=== PATIENT | male | born 1945 | race Caucasian/White ===

== ENCOUNTER 2023-11-27 06:24 | Observation (INO) ==
--- NOTE | 2023-11-02 10:49 | PAT Medication Instructions ---
Medication Instructions Date of Service November 02, 2023 Home Medications albuterol sulfate 90 mcg/actuation aerosol inhaler 1 inh inhalation QID PRN atorvastatin 40 mg tablet 40 mg PO QPM bisacodyl 5 mg tablet,delayed release (Dulcolax (bisacodyl)) 5 mg PO QPM cholecalciferol (vitamin D3) 25 mcg (1,000 unit) tablet (Vitamin D3) 25 mcg PO QAM fluticasone propionate 50 mcg/actuation nasal spray,suspension 1 spray intranasal BID gabapentin 100 mg capsule 100 mg PO BID levocetirizine 5 mg tablet 5 mg PO QAM levothyroxine 75 mcg tablet 75 mcg PO QAM metoprolol tartrate 50 mg tablet 50 mg PO BID multivitamin 1 tab PO QAM naproxen sodium 220 mg capsule (Aleve) 220 mg PO BID tamsulosin 0.4 mg capsule 0.4 mg PO QPM clopidogrel 75 mg tablet 75 mg PO QAM ezetimibe 10 mg tablet 10 mg PO QPM ferric maltol 30 mg capsule (Accrufer) 30 mg PO QAM pantoprazole 40 mg tablet,delayed release 40 mg PO QAM ASK your surgeon for instructions naproxen sodium 220 mg capsule (Aleve) 220 mg PO BID ASK your prescriber and surgeon clopidogrel 75 mg tablet 75 mg PO QAM(in order for spinal or epidural anesthesia, Plavix needs to be stopped 7 days before surgery. Please check if okay with doctor that prescribes this to you) DO NOT take the morning of surgery cholecalciferol (vitamin D3) 25 mcg (1,000 unit) tablet (Vitamin D3) 25 mcg PO QAM levocetirizine 5 mg tablet 5 mg PO QAM multivitamin 1 tab PO QAM ferric maltol 30 mg capsule (Accrufer) 30 mg PO QAM Take morning of surgery With a small sip of water, OTHERWISE NOTHING TO EAT OR DRINK AFTER MIDNIGHT: albuterol sulfate 90 mcg/actuation aerosol inhaler 1 inh inhalation QID PRN(use if needed; please bring with you to hospital day of surgery if possible) fluticasone propionate 50 mcg/actuation nasal spray,suspension 1 spray intranasal BID gabapentin 100 mg capsule 100 mg PO BID levothyroxine 75 mcg tablet 75 mcg PO QAM metoprolol tartrate 50 mg tablet 50 mg PO BID pantoprazole 40 mg tablet,delayed release 40 mg PO QAM Take evening before surgery albuterol sulfate 90 mcg/actuation aerosol inhaler 1 inh inhalation QID PRN(if needed) atorvastatin 40 mg tablet 40 mg PO QPM bisacodyl 5 mg tablet,delayed release (Dulcolax (bisacodyl)) 5 mg PO QPM fluticasone propionate 50 mcg/actuation nasal spray,suspension 1 spray intranasal BID gabapentin 100 mg capsule 100 mg PO BID metoprolol tartrate 50 mg tablet 50 mg PO BID tamsulosin 0.4 mg capsule 0.4 mg PO QPM ezetimibe 10 mg tablet 10 mg PO QPM Other Notes If you have any questions please call us at [phone] or [phone] or [phone] or [phone]
--- NOTE | 2023-11-05 09:37 | Anesthesiology Consultation ---
Date of Service November 05, 2023 Assessment & Plan (1) Encounter for pre-operative examination: - will request 07/2023 cardiology office note, Torin Pope PA-C with [facility] Juan Antonio cardiology. - Outpatient joint assessment: Patient is currently scheduled for inpatient pathway. If re-evaluated and patient/surgeon requests outpatient pathway, patient is not recommended candidate for outpatient joint program from anesthesia standpoint. Chart Review Chart Review: Pending: Refer to Additional Notes / Consult section and Patient seen in Pre Admission Testing Teaching & Discussion Pre-Anesthesia Teaching/Discussion Notes: Instructed NPO after midnight before surgery, except medications with 15 cc of water. Medication instructions provided according to the PAT guidelines. History Surgery Operation Date: 11/27/23 09:00 Proposed Procedures p Right Total Knee Arthroplasty - Reno Hooks DO Height/Weight Height: 5 ft 4 in Weight: 86.183 kg Allergies Allergy/AdvReac Type Severity Reaction Status Date / Time clarithromycin Allergy Mild Rash Verified 10/29/23 10:18 lisinopril AdvReac Mild Cough Verified 10/29/23 10:18 prednisone AdvReac Mild Gastrointestinal Verified 10/29/23 10:16 Upset Medications Home Medications Medication Instructions Recorded Confirmed Last Taken albuterol sulfate 90 mcg/actuation 1 inh inhalation QID PRN SHORT OF 10/07/21 10/29/23 10/09/21 07:00 aerosol inhaler BREATH atorvastatin 40 mg tablet 40 mg PO QPM 10/07/21 10/29/23 10/08/21 bisacodyl 5 mg tablet,delayed 5 mg PO QPM 10/07/21 10/29/23 10/08/21 release (Dulcolax (bisacodyl)) cholecalciferol (vitamin D3) 25 25 mcg PO QAM 10/07/21 10/29/23 10/08/21 mcg (1,000 unit) tablet (Vitamin D3) fluticasone propionate 50 1 spray intranasal BID 10/07/21 10/29/23 10/08/21 mcg/actuation nasal spray,suspension gabapentin 100 mg capsule 100 mg PO BID 10/07/21 10/29/23 10/08/21 levocetirizine 5 mg tablet 5 mg PO QAM 10/07/21 10/29/23 10/08/21 levothyroxine 75 mcg tablet 75 mcg PO QAM 10/07/21 10/29/23 10/08/21 metoprolol tartrate 50 mg tablet 50 mg PO BID 10/07/21 10/29/23 10/08/21 multivitamin 1 tab PO QAM 10/07/21 10/29/23 10/08/21 naproxen sodium 220 mg capsule 220 mg PO BID 10/07/21 10/29/23 10/08/21 (Aleve) tamsulosin 0.4 mg capsule 0.4 mg PO QPM 10/07/21 10/29/23 10/08/21 clopidogrel 75 mg tablet 75 mg PO QAM 10/29/23 10/29/23 Unknown ezetimibe 10 mg tablet 10 mg PO QPM 10/29/23 10/29/23 Unknown ferric maltol 30 mg capsule 30 mg PO QAM 10/29/23 10/29/23 Unknown (Accrufer) pantoprazole 40 mg tablet,delayed 40 mg PO QAM 10/29/23 10/29/23 Unknown release Past Medical History Medical History (Updated 11/05/23 @ 09:35 by Sameera Hall PA-C) Asthma controlled, stable per pt; last rescue inhaler use several weeks ago BPH (benign prostatic hyperplasia) Contact dermatitis Coronary artery disease CABG x 5 (11/2021) Stent x1 (07/2022) GERD (gastroesophageal reflux disease) controlled, stable per pt History of blood transfusion during CABG Hyperlipidemia Hypertension controlled, stable per pt Hypothyroidism Migraine 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 Exercise / Class Metabolic Activity III < 4 Walking/Shop/Light housework (denies chest discomfort or shortness of breath with usual activities) Past Family History Family History Mother Family history of diabetes mellitus Daughter Family history of diabetes mellitus Other No family history of adverse response to anesthesia Past Surgical History Surgical History History of cardiac cath Stent x1 (07/2022) History of colonoscopy History of coronary artery bypass graft 11/2021, [facility] History of esophagogastroduodenoscopy (EGD) History of tonsillectomy Hx of inguinal hernia repair [place] teeth removed Past Anesthesia History No Hx of Anesthesia Complications and No Family Hx of Anesthesia Complications History of PONV No Hx of PONV and No Hx of Motion Sickness Social History Smoking Status: Never smoker Do You Dip or Chew Tobacco: No Hx Alcohol Use: Yes alcohol intake frequency: holidays/special occasions only Hx Substance Use: No substance use type: does not use Review of Systems Patient reports development of rash 1 week ago, located on hands and forearms after clearing weeds-following with PCP with dx of contact dermatitis. Patient denies chest pain, shortness of breath, dyspnea on exertion, fever, chills, cough, wheezing, or palpitations. Physical Exam Vital Signs Vitals BP 124/80 P 66 TEMP 97.5 SP02 95% on RA RESP 18 Physical Patient resting comfortably in chair in no acute distress, alert and oriented, responding appropriately throughout visit Full cervical extension range of motion without pain TMD 3.5 finger breadths Mallampati Score 2 Dentition: intact, denies chipped or loose teeth, caps/crowns, implants or bridges Lungs: normal respiratory effort. Good air movement, clear throughout to auscultation, no adventitious breath sounds Cardiac: regular rate and rhythm, no murmurs noted Carotid arteries: negative bruit bilat Skin: papulo-vesicular erythematous rash on hands bilat; no bullae or active drainage-patient reports has been evaluated by a healthcare provider and was dx with contact dermatitis. He was instructed to call PAT if rash does not resolve by surgery date. Lab Results Anesthesia Preop Results Results Anesthesia Widget: WBC 10.81 K/ul (4.8-10.8) H 11/05/23 Hgb 15.6 g/dl (14.0-18.0) 11/05/23 Hct 46.7 % (42.0-52.0) 11/05/23 Plt 315 K/uL (130-400) 11/05/23 Na 139 mmol/L (136-145) 11/05/23 K 4.2 mmol/L (3.5-5.1) 11/05/23 Cl 107 mmol/L (98-107) 11/05/23 CO2 22 mmol/L (21-32) 11/05/23 BUN 23 mg/dl (6-23) 11/05/23 Creat 0.81 mg/dl (0.6-1.4) 11/05/23 Glucose Level 96 mg/dl (70-99(Fasting)) 11/05/23 PT 11.1 Seconds (9.0-12.0) 11/05/23 PTT 24 Seconds (21-31) 11/05/23 INR 1.0 (0.9-1.1) 11/05/23 Blood Type A Positive 11/05/23 Antibody Screen NEGATIVE 11/05/23 Testing Electrocardiogram Date: 11/05/23 NSR, rate 63 bpm Chest X-Ray Date: 11/05/23 Cardiomegaly with no active disease in the chest.
--- NOTE | 2023-11-26 07:15 | History & Physical Report ---
Date of Service November 26, 2023 Assessment & Plan (1) Osteoarthritis of right knee: We will proceed with a right total knee arthroplasty. Postoperatively he will be kept on his aspirin and Plavix for DVT prophylaxis. He will be kept overnight in the hospital for postop medical management. He plans to have the hospital set up home health before discharge. History of Present Illness Chief Complaint: Osteoarthritis of the right knee. Primary Care Provider: Jessee Macias Iglesia Dick is a pleasant 78-year-old male who has been dealing with chronic bilateral knee pain. 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 X-rays have shown advanced arthritis. He has been given cortisone injections and viscosupplementation. Unfortunately, he is still struggling with the knees. After finding since conservative treatment, he has elected to proceed with a right total knee arthroplasty. Allergies Allergy/AdvReac Type Severity Reaction Status Date / Time clarithromycin Allergy Mild Rash Verified 10/29/23 10:18 lisinopril AdvReac Mild Cough Verified 10/29/23 10:18 prednisone AdvReac Mild Gastrointestinal Verified 10/29/23 10:16 Upset Home Medications Medication Instructions Recorded Confirmed Type albuterol sulfate 90 mcg/actuation 1 inh inhalation QID PRN SHORT OF 10/07/21 10/29/23 History aerosol inhaler BREATH atorvastatin 40 mg tablet 40 mg PO QPM 10/07/21 10/29/23 History bisacodyl 5 mg tablet,delayed 5 mg PO QPM 10/07/21 10/29/23 History release (Dulcolax (bisacodyl)) cholecalciferol (vitamin D3) 25 25 mcg PO QAM 10/07/21 10/29/23 History mcg (1,000 unit) tablet (Vitamin D3) fluticasone propionate 50 1 spray intranasal BID 10/07/21 10/29/23 History mcg/actuation nasal spray,suspension gabapentin 100 mg capsule 100 mg PO BID 10/07/21 10/29/23 History levocetirizine 5 mg tablet 5 mg PO QAM 10/07/21 10/29/23 History levothyroxine 75 mcg tablet 75 mcg PO QAM 10/07/21 10/29/23 History metoprolol tartrate 50 mg tablet 50 mg PO BID 10/07/21 10/29/23 History multivitamin 1 tab PO QAM 10/07/21 10/29/23 History naproxen sodium 220 mg capsule 220 mg PO BID 10/07/21 10/29/23 History (Aleve) tamsulosin 0.4 mg capsule 0.4 mg PO QPM 10/07/21 10/29/23 History clopidogrel 75 mg tablet 75 mg PO QAM 10/29/23 10/29/23 History ezetimibe 10 mg tablet 10 mg PO QPM 10/29/23 10/29/23 History ferric maltol 30 mg capsule 30 mg PO QAM 10/29/23 10/29/23 History (Accrufer) pantoprazole 40 mg tablet,delayed 40 mg PO QAM 10/29/23 10/29/23 History release Past Med/Surg History Medical History Contact dermatitis Sleep apnea on CPAP-compliant History of blood transfusion during CABG Coronary artery disease CABG x 5 (11/2021) Stent x1 (07/2022) 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 BPH (benign prostatic hyperplasia) GERD (gastroesophageal reflux disease) controlled, stable per pt Hypothyroidism Migraine Hypertension controlled, stable per pt Hyperlipidemia Seasonal allergies Asthma controlled, stable per pt; last rescue inhaler use several weeks ago Surgical History Hx of inguinal hernia repair History of cardiac cath Stent x1 (07/2022) History of coronary artery bypass graft 11/2021, [facility] History of esophagogastroduodenoscopy (EGD) History of colonoscopy [place] teeth removed History of tonsillectomy Family History Mother Family history of diabetes mellitus Daughter Family history of diabetes mellitus Other No family history of adverse response to anesthesia Social History Smoking Status: Never smoker Second Hand Exposure: Yes (childhood); Do You Dip or Chew Tobacco: No; Tobacco Cessation Education Requested by Patient: No Hx Alcohol Use: Yes Hx Substance Use: No Preferred Language: Faroese Windows And Doors Installer Required: No Beliefs That Will Affect Care: None Current Living Situation: Alone Current Living Situation Comment: WITH DAUGHTER Other Information That Helps Us Care for You: No Feels Safe at Home: Yes Safety Concerns: Feels Safe At This Time Assistive Devices: Glasses Review of Systems All systems reviewed & are unremarkable except as noted in HPI & below. Physical Exam On physical exam of the right knee, he does have a varus deformity. He has tenderness palpation over the distal medial femoral condyle and over the medial joint line.. Constitutional WD/WN, vitals as above Eyes PERRL, conjunctivae normal, anicteric sclerae ENMT external ear and nose normal, oropharynx normal Neck trachea midline, no thyromegaly Respiratory normal respiratory effort Cardiovascular RRR, no murmur, no edema Gastrointestinal (Abdomen) normal bowel sounds, soft, nontender, no hepatosplenomegaly Psychiatric A+Ox3, euthymic affect Results & Data Results & Data Laboratory Results . Diagnostic Findings X-rays of the right knee show advanced osteoarthritis with joint space narrowing, osteophyte formation, and [id number] articulation. PG Care Time/CCT Total # of Minutes Spent Total Time Spent with Patient: Total time spent is greater than 50% in coordination of care (as documented) at patient's floor/unit and/or counseling patient: Coding Level of Care Code None Diagnoses Osteoarthritis of right knee M17.11
[~2023-11-27 06:24] MED LIST: BUPIVACAINE 0.5 % 5 MG/1 ML PF 10ML VIAL ONE; ROPIVACAINE 0.5% 5 MG/ML 30 ML VIAL ONE
--- NOTE | 2023-11-27 06:36 | History & Physical Bridge Note ---
Date of Service November 27, 2023 History & Physical Bridge Note I have examined the patient, reviewed the History & Physical and in the interval since the performance of the History & Physical I have noted the following changes of clinical significance: no changes noted
[2023-11-27] MEDS ORDERED: MIDAZOLAM HCL 1 MG/ML 2ML VIAL ONE ×2 (06:41→07:53)
[2023-11-27] MEDS ORDERED: KETAMINE HCL 10MG/ML SYR ONE (06:41)
[2023-11-27] MEDS: LR 60ML/HR IV SCH (07:10)
[2023-11-27] MEDS: ACETAMINOPHEN 500 MG TAB PO SCH ×2 (07:13→13:19)
[2023-11-27] MEDS: FAMOTIDINE 20 MG TAB PO SCH (07:13)
[2023-11-27] MEDS: GABAPENTIN 300 MG CAP PO SCH (07:13)
[2023-11-27] MEDS: LR 500ML BOLUS, THEN 15ML/HR IV SCH (07:16)
[2023-11-27] MEDS: dexAMETHasone**PF** 10 MG/ML VIAL IV SCH (07:17)
[2023-11-27] MEDS ORDERED: ePHEDrine sulfate 50 MG/ML AMP IV PRN (07:36)
[2023-11-27] MEDS ORDERED: ATROPINE SULFATE 0.1 MG/ML 10ML SYR IV PRN (07:36)
[2023-11-27] MEDS ORDERED: fentaNYL citrate PF 100 MCG/2 ML VIAL IV PRN (07:36)
[2023-11-27] MEDS: TRANEXAMIC ACID 1,000 MG **IV Pre-op IV SCH (07:37)
[2023-11-27] MEDS: ceFAZolin 2000MG 2,000 MG/15 ML SYR IV SCH (08:04)
[2023-11-27] MEDS ORDERED: GLYCOPYRROLATE 0.2 MG/ML VIAL ONE (08:13)
[2023-11-27] MEDS ORDERED: LIDOCAINE 2% 2 ML VIAL/AMP(20MG/ML) INFIL ONE (08:13)
[2023-11-27] MEDS ORDERED: PROPOFOL IV EMULSION 10 MG/ML 20 ML VIAL IV ONE ×2 (08:13→09:06)
[2023-11-27] MEDS ORDERED: ONDANSETRON INJ 2 MG/ML 2 ML VIAL ONE (08:13)
[2023-11-27] MEDS: ROPIV 0.5% 246mg, Ketorolac 30mg, EPINEPHrine 0.5mg in NSS INFIL SCH (08:38)
[2023-11-27] MEDS: ORTHO JOINT ANESTHETIC ONE (08:38)
[2023-11-27] MEDS: TRANEXAMIC ACID 1,000 MG **IV Intra-op IV SCH (09:00)
[2023-11-27] MEDS ORDERED: PHENYLEPHRINE 100MCG/ML 10ML SYR IV ONE (09:00)
--- NOTE | 2023-11-27 09:10 | Operative Report ---
PG Post Operative Report Pre & Post Diagnosis Operation Date: 11/27/23 08:00 Pre-Op Diagnosis: Degenerative Joint Disease, Right Knee Post-Op Diagnosis: Degenerative Joint Disease, Right Knee I identified the patient and participated in the time-out.: Yes Procedure Operation Date: 11/27/23 08:00 Actual Procedures p Right Total Knee Arthroplasty, Cemented(Right) - Reno Hooks DO Surgeon Reno Hooks DO Landscape Gardener Aquiles Hart PA-C Estimated Blood Loss 30 Findings Consistent with Post-Op Diagnosis Specimens Right femoral tibial bone Description of Procedure Implants used: I used a Maxim Persona total knee arthroplasty system with a size 8 standard PS femur, F tibia, 34 oval patella, and a size 10 CPS polyethylene bearing. All components were cemented in place with Biomet cement. Kapil arrived [facility] for the above procedure. He was seen in the preoperative holding area and the operative extremity was identified and signed. He was given a preoperative antibiotic, TXA, a spinal anesthetic and an adductor nerve block. He was taken back to the operating room and laid on the table in supine position. He was given basic sedation. The operative knee was then prepped and draped in sterile fashion. A timeout was done, and the patient and the operative extremity was properly identified. A midline incision was made directly over the patella. Dissection was taken down to the extensor mechanism. A medial parapatellar arthrotomy was used. The medial retinaculum was released and the fat pad was mostly excised. The knee was flexed and the ACL, PCL, and meniscus were removed. A drill was sent down the center of the femoral canal followed by an intramedullary ga. Off that ga a distal femoral cutting block was placed. 9 mm was resected off the distal femur at 5 of valgus. A posterior referencing AP sizing guide was then placed on the distal femur. The femur measured to be a size 8. 2 drill holes were placed in 3 of external rotation. A 4-in-1 cutting block was then impacted into place. Anterior, posterior, and chamfer cuts were then made. The proximal tibia was then exposed. An external tibial alignment guide was placed. A tibial cut guide was then anchored in place and the proximal tibia was then resected. The posterior aspect of the knee was then opened up and any additional meniscus fragments and osteophytes were removed. The tibia measured to be a size F. The tibial plate was then placed in the appropriate rotation and the tibia was drilled and punched. Trial components were then placed. I used a size 10 CPS polyethylene insert. The knee was brought through a full range of motion and felt to be stable. The peg holes for the femoral component were then drilled. The patella was then everted and 9 mm was resected off the posterior aspect of the patella. The patella measured to be a size 34 oval. 3 peg holes were then drilled. A trial patella was placed. The knee was once again brought through a full range of motion and felt to be stable. Trial components were then removed. The surrounding soft tissues were injected with 100 cc of an orthopedic pain control cocktail. All components were then cemented into place with Biomet cement. The final polyethylene insert was then snapped into place. Once cement was dry the tourniquet was deflated. Hemostasis was obtained. A dilute betadyne lavage was then done for 3 minutes. The joint was then irrigated with normal saline solution. The medial parapatellar arthrotomy was then closed with #1 Vicryl suture. The skin was closed with 2-0 Vicryl, 3-0V lock suture, and sidney. A soft compressive dressing was placed. He was then transferred to a hospital bed and taken to the postanesthesia care unit in stable condition. He tolerated the procedure well. Aquiles Hart PA-C, was present for the entire procedure. He was critical for patient positioning, prepping, draping, retraction exposure, wound closure and application of sterile dressing. I attest to the content of the Intraoperative Record and any orders documented therein. Any exceptions are noted below.
--- NOTE | 2023-11-27 10:09 | XRay Report ---
XR knee RT 1 or 2V routine CLINICAL HISTORY: Postoperative evaluation. COMPARISON: Right knee radiographs September 08, 2023. FINDINGS: Alignment of the total right knee arthroplasty is anatomic. There is no periprosthetic fra cture or unexpected radiopaque foreign body. There are skin sidney. IMPRESSION: Expected findings following total right knee arthroplasty. ACT 112: Negative or not required by law. Electronically signed by: Lavell Wood M.D. 11/27/2023 10:08 AM
[2023-11-27] MEDS ORDERED: ONDANSETRON INJ 2 MG/ML 2 ML VIAL IV PRN (11:00)
[2023-11-27] MEDS ORDERED: NALOXONE HCL 0.4 MG/1 ML VIAL/CARP IV PRN (11:00)
[2023-11-27] MEDS ORDERED: bisacodyL 10 MG SUPP PR PRN (11:00)
[2023-11-27] MEDS ORDERED: METOCLOPRAMIDE HCL INJ 5 MG/ML 2 ML VIAL IV PRN (11:00)
[2023-11-27] MEDS ORDERED: traMADol HCL 50 MG TABLET PO PRN (11:00)
[2023-11-27] MEDS ORDERED: HYDROmorphone INJ 0.5 MG/0.5 ML SYR IV PRN (11:00)
[2023-11-27] MEDS ORDERED: MAGNESIUM HYDROXIDE SUSP 30 ML UDC PO PRN (11:00)
[2023-11-27] MEDS: SODIUM CHLORIDE 0.9% 1,000 ML IV SCH (11:16)
[2023-11-27] MEDS: KETOROLAC TROMETHAMINE 15 MG/ML VIAL IV SCH (12:01)
--- OUTSIDE RECORDS SUMMARY | 2023-11-27 15:47 | External Medical Summary | Continuity of Care Document ---
Author Name Unknown Organization [facility] Address [address] [place] [address] Phone [phone] Care Team Providers Care Body Shop Technician Name Role Phone [facility] Care Team Information Receive r [phone] [facility] - [facility] Care Team Information Lean Leader [phone] Problems Active Problems Provider Date Mixed hyperlipidemia Jessee Parekh PA-C Ons et: Essential hypertension Jessee Parekh PA-C O nset: Hypothyroidism Jessee Parekh PA-C Onset: 0 Gastroesophageal reflux disease Jessee strickland PA-C Onset: Degenerative joint disease i nvolving multiple joints Jessee Parekh PA-C Onset: Low back pain Jessee Parekh PA-C Onset: 0 Chronic maxillary sinusitis Yolette Wells Onset: 11/17/2017 Trigeminal neuralgia Jessee Parekh PA-C Ons et: 04/05/2018 Obstructive sleep apnea syndrome Jessee wood PA-C Onset: 05/20/2018 Insomnia Jessee Parekh PA-C Onset: 0 05/20/2018 Asthma without status asthmaticus Jessee villasenor PA-C Onset: 05/19/2019 Localized, primary osteoarthritis Jessee villasenor PA-C Onset: 07/28/2019 Coronary artery bypass grafts x 5 Onset: 11/12/2021 Note: Document: 11/12/21 - O perative Report Social History Type Date Description Comments Sex Unknown Tobacco Use Reviewed: 07/15/23 Never Smoked Cigarette s Tobacco Use Reviewed: 07/15/23 Never Smoked Cigars Smoking Status Reviewed: 11/19/23 Never Smoked Cigars Tobacco Use Reviewed: 07/15/23 Never Smoked A Pipe Smokeless Tobacco 07/15/2023 Never Used Smokeless To bacco ETOH Use Denies alcohol use Recreational Drug Use Denies Drug Use Allergies and adverse reactions Active Allergies Criticality Reaction | Severity Comments Date steroid Unable to assess criticality Nausea and Vomiting 05/21/2017 Lisinopril Unable to assess criticality Cough 11/12/2018 Amlodipine Unable to assess criticality Angioedema 12/30/2018 Medications Active Medications SIG Qnty Indications Order ing Provider Date Gtqcpgekttr519ds Capsules Four capsules prior to dental procedure 10britney Guadarrama MD 10/02/2023 Xdfsarjbr64ct Tablets 1 by mouth every day 90tabs Fauzia Guadarrama MD 09/23/2023 Jrbyuel95xn Tablets 1 by mouth every day 90tabs Fauzia Guadarrama MD 02/09/2023 Aqaqohsr99qx Capsules one capsule daily 180caps Fauzia Guadarrama MD 12/10/2022 Ferrous Bkninjd999(65Fe) mg Tablets take 1 tablet by mouth daily 60tabs Fauzia Guadarrama MD 11/25/2022 Clopidogrel Heufqewug77iw Tablets Take 1 tablet by mouth once daily 30tabs Fauzia Guadarrama MD 08/05/2022 Nitroglycerin0.4mg Tablets Sub one by mouth sl every 5 minutes x3 as needed chest pain 30tabs Fauzia Guadarrama MD 07/21/[address] 1 by mouth every day 90caps K21.9 Fauzia Guadarrama MD 06/03/2022 Dgicofraal8vv Tablets 1 by mouth four times a day prior to meals as needed 120tabs Fauzia Guadarrama MD 06/03/2022 Saline Nasal Spray0.65% Solution use 2- 3 times a day 88ml J32.0 Fauzia Guadarrama MD 03/25/2022 Zyrtec Dkiehnt22oe Tablets 1 by mouth every day 30tabs J32.0 Fauzia Guadarrama MD 03/25/2022 Fluticasone Creejwltpn30hfd/Act Suspension 2 sprays each nostril every day 48gm Fauzia Guadarrama MD 02/14/2022 Medical Alert SystemDevice use at all times 1units I25.731 Fauzia Guadarrama MD 12/27/2021 Gpgaklbehj61hl Tablets 1 by mouth every day as needed for fluid 30tabs Fauzia Guadarrama MD 11/22/2021 Atorvastatin Qdhtxsx63ud Tablets 1 by mouth every day E78.2 Fauzia Guadarrama MD 10/24/2021 Levocetirizine Jggqthittnfolxe4wv Tablets take one tablet by mouth at bedtime 90tabs Fauzia Guadarrama MD 10/24/2021 Wubajobxt94vrl Tablets once daily 90tabs E03.9 Aurelio Llanes MD 11/09/2020 Metoprolol Feewvprq05xe Tablets 1 by mouth twice a day 180tabs Aurelio Llanes MD 11/09/2020 Albuterol Sulfate DCG832(90Base) mcg/Act Aerosol 2 puffs by mouth every 4-6 hours as needed wheezing 8.500gm J45.998 Usman Burciaga JR, MD 05/19/2019 Multivitamin AdultTablets 1 by mouth every day Usman Burciaga JR, MD 05/05/2019 Kmkvhcweke418dr Capsules 1 by mouth twice daily 270caps G50.0 Fauzia Guadarrama MD 04/05/2018 Cpap Autotitration Machine With Mask AndDevice wear nightly increase to 14cm h20 pressure - decreased humidifier please 1units G47.33 Fauzia Guadarrama MD 08/18/2017 Cpap Machine, Mask, Tubing, And FilterDevice patient to use full face mask 1units G47.33 Fauzia Guadarrama MD 08/18/2017 Flomax0.4mg Capsules 1 by mouth every day 90caps Fauzia Guadarrama MD Montelukast Csntrm27ce Tablets 1 by mouth every day Unknown Vitamin [id number] Tablets ER 1 by mouth every day Usman Burciaga JR, MD History Medications Repatha Hvmychxws499zs/ml Solution Auto-Inject one every other week 6ml Fauzia Guadarrama MD 09/03/2023 - 10/09/2023 Medications Administered in Office Medication SIG Qnty Indications Ordering Provider Date Injection Dexamethasone Sodium Phosphate, 1 MGInjection Jessee Parekh PA-C 05/08 Injection Kenalog 10 MG NDC [id number] Yolette Wells A-C 04/27/2023 Injection Dexamethasone Sodium Phosphate, 1 MGInjection Jessee Parekh PA-C 04/08 Injection Vitamin B-12 Up To 1000 mcgInjection Jessee Parekh PA-C 11/25/2022 Injection Dexamethasone Sodium Phosphate, 1 MGInjection Jessee Parekh PA-C 07/09 Injection Dexamethasone Sodium Phosphate, 1 MGInjection Fauzia Guadarrama MD Injection Dexamethasone Sodium Phosphate, 1 MGInjection Jessee Parekh PA-C 02/06 Injection Dexamethasone Sodium Phosphate, 1 MGInjection Jessee Parekh PA-C 04/2021 Injection Dexamethasone Sodium Phosphate, 1 MGInjection Jessee Parekh PA-C 10/2020 Injection Kenalog 10 MG NDC 30894210285Kdbbkojvn Jessee Parekh, P A-C 01/18/2021 Injection Kenalog 10 MG NDC 52202049669Ssrmzilcs Jessee Parekh, P A-C 01/26/2020 Injection Kenalog 10 MG NDC 88683915113Wvbldwcvb Jessee Parekh, P A-C 12/15/2019 Injection Kenalog 10 MG NDC 64687149554Qeqdgpnsj Jessee Parekh, P A-C 11/08/2019 Injection Dexamethasone Sodium Phosphate, 1 MGInjection Jessee Parekh, ABDIRAHMANC 11/2019 Injection Kenalog 10 MG NDC 82556156223Vpnzxohxm DARWIN Sainz 10/21/2019 Injection Dexamethasone Sodium Phosphate, 1 MGInjection DARWIN Schrader 10/21/2019 Injection Kenalog 10 MG NDC 98228449531Pklrqkglm Jessee Gilberto Harpera, P A-C 06/23/2019 Injection Kenalog 10 MG NDC 21882957295Kfypsttcr Jessee Gilberto Harpera, P A-C 12/30/2018 Injection Kenalog 10 MG NDC 45146857881Bazthquns Kelly CharlesDARWIN Nelson 10/04/2018 Injection Kenalog 10 MG NDC 22798545557Heevbvfcf Jessee Gilberto Harpera, P A-C 06/24/2018 Injection Kenalog 10 MG NDC 86122756887Zbrbdejpy Jessee Gilberto Lazrosaa, P A-C 11/17/2017 Injection Dexamethasone Sodium Phosphate, 1 MGInjection Jessee Gilberto Harpera, PA-C 11/05 Injection Kenalog 10 MG NDC 20817196015Lolntdgfx Jessee Gilberto Harpera, P A-C 05/21/2017 Injection Dexamethasone Sodium Phosphate, 1 MGInjection Jesseeava Harpera, PA-C 05/08 Injection Dexamethasone 1 MGInjection Jesseeava Harpera, PA-C 05/08 Immunizations CPT Code Status Date Vaccine Lot # [id number] Given 06/24/2023 Sarscov2 Vaccin e 50 mcg/0.5 ML For Im Use 12 Yrs And Older U-FLU Given 06/12/2023 Influenza,Unspecified 62072 Given 06/18/2022 Pfizer Sars-Cov -2 (Covid-19) Vx, BiValent Booster, 12+ 78660 Given 01/21/2022 Moderna Covid-1 9 Vaccine 50mcg Booster-EMR Doc Only [id number] 24146 Given 07/06/2021 Moderna Sars-Co v-2 (Cov-19) vacc,100 mcg/ 0.5 mL 12Y+EMR Doc Only U-FLU Given 06/24/2021 Influenza,Unspecified 63734 Given 11/05/2020 Moderna Sars-Co v-2 (Cov-19) vacc,100 mcg/ 0.5 mL 12Y+EMR Doc Only 31717 Given 10/05/2020 Moderna Sars-Co v-2 (Cov-19) vacc,100 mcg/ 0.5 mL 12Y+EMR Doc Only U-FLU Given 06/15/2020 Influenza,Unspecified 60698 Given 06/15/2020 Influenza Vacci ne-Administered at another facility U-FLU Given 06/06/2019 Influenza,Unspecified 59129 Given 06/06/2019 Influenza Vacci ne-Administered at another facility U-FLU Given 06/28/2018 Influenza,Unspecified 10042 Given 12/29/2017 Pneumococcal Conjugate-Pr evnar 13 [id number] 66014 Given 12/29/2017 Pneumococcal Conjugate-Pr evnar 13 42160 Given 07/19/2017 Influenza Vacci ne-Administered at another facility 12822 Given 04/25/2016 Tdap (Tetanus, diphtheria & acel. pertussis) Adacel or Boostrix 04885 Given 10/08/2011 Zostavax Vaccine 37369 Given 10/08/2011 Pneumococcal Vaccine/Pneu movax 23 U-FLU Given 06/20/2011 Influenza,Unspecified U-TD Given 08/04/2005 Td(Adult),Unspecified 39313 Given Unknown Influenza Virus Vaccine, Quadrivalent (Cciiv4), Derived From Cell 12547 Refused 12/30/2018 Influenza Virus Vaccine, Quadrivalent (Cciiv4), Derived From Cell [id number] Refused 12/01/2018 Shingrix Vital Signs Date Vital Result Comment 11/19/2023 8:21am BP Systolic 116 mmHg BP Diastolic 66 mmHg Body Temperature 97.3 F Heart Rate 71 /min Respiratory Rate 14 /min Weight 201.00 lb Weight 91.174 kg Height 63 inches 5'3" BMI (Body Mass Index) 35.6 kg/m2 O2 % BldC Oximetry 94 % [place] Body Weight 124 lb 08/20/2023 10:43am BP Systolic 116 mmHg BP Diastolic 78 mmHg Body Temperature 97.4 F Heart Rate 58 /min Respiratory Rate 15 /min Weight 204.00 lb Weight 92.534 kg Height 63 inches 5'3" BMI (Body Mass Index) 36.1 kg/m2 O2 % BldC Oximetry 96 % [place] Body Weight 124 lb Results Test Acquired Date Facility Test Result H/L Range N ote CBC W/Diff 08/10/2023 [facility] [address] [place] [address] [phone] WBC 4.8 10^3/M3 3.1-9.2 RBC 4.97 10^6/M3 4.00-5.80 HGB 16.4 GR/DL 12.5-17.5 HCT 49.2 % 37.5-52.5 MCV 99.0 CUMICR High 82.6-95.8 MCH 32.9 PICOGR 27.9-32.9 MCHC 33.2 % 32.6-35.4 RDW 13.5 % 11.4-14.6 PLT 278 10^3/M3 140-350 MPV 8.3 CUMICR 7.0-10.6 %Neut 61.2 % 40.0-75.0 %Lymph 22.5 % 17.0-45.0 %Pike 13.4 % High 1.0-11.0 %Eos 2.0 % 0.0-6.0 %Baso 0.9 % 0.0-2.0 #Neut 2.9 10^3/M3 1.5-8.0 #Lymph 1.1 10^3/M3 0.8-3.2 #Pike 0.6 10^3/M3 0.0-0.8 #Eos 0.1 10^3/m3 0.0-0.4 #Baso 0.0 10^3/m3 0.0-0.2 Comp. Met 08/10/2023 [facility] [address] [place] [address] [phone] Glucose 98 mg/dL 70-110 BUN 17 mg/dL 6-25 Creatinine 0.8 mg/dL 0.7-1.3 Sodium 140 mEq/L 135-145 Potassium 4.1 mEq/L 3.5-5.0 Chloride 105 mEq/L 95-107 Co-2 24 mEq/L 24-31 Alk Phos 57 IU/L 43-122 Alt(SGPT) 29 IU/L 10-40 Ast(Sgot) 27 IU/L 3-42 T.Bilirubin 1.0 mg/dL 0.1-1.3 Calcium 9.6 mg/dL 8.5-10.6 Tot.Protein 6.7 g/dL 5.8-8.0 Albumin 4.6 g/dL 3.0-5.2 Globulin 2.1 g/dL 2.0-3.4 GFR 100 ML/MIN/1.73SQM >60 Lipid 08/10/2023 [facility] [address] [place] [address] [phone] Cholesterol 175 mg/dL 0-200 1 Triglyceride 228 mg/dL High 0-150 2 HDLD 42 mg/dL See Comment 3 Measured LDL 99 mg/dL 0-130 4 Calc VLDL 45.6 mg/dL See Comment 5 Chol/HDL 4.2 RATIO See Comment 6 Non-HDL 133 mg/dL See Comment 7 Laboratory test finding 08/10/2023 [facility] [address] [place] [address] [phone] TSH 5.56 uIU/mL 0.50-6.00 Hba1c 08/10/2023 [facility] [address] [place] [address] [phone] A1c 6.00 % 4.70-6.50 8 Iron Panel([employer]) 08/10/2023 [facility] [address] [place] [address] [phone] Iron 113 g /dL 45-140 % Saturation 31 % 30-35 Tibc 08/10/2023 [facility] [address] [place] [address] [phone] Tibc 365 g /dL 260-400 Transferrin 261 mg/dL 200-400 Laboratory test finding 08/10/2023 [facility] [address] [place] [address] [phone] Psa2 2.0 ng/mL 0.0-4.0 VB12 300 pg/mL 230-1050 Urinalysis,Cult If Indicated 08/10/2023 [facility] [address] [place] [address] [phone] RFLX Culture NO Urinalysis 08/10/2023 [facility] [address] [place] [address] [phone] Color COLORLESS Appearance CLEAR Clear Spec.Grav. 1.005 1.005-1.025 Leukocytes NEGATIVE Negative Nitrite NEGATIVE Negative PH 6.5 6.0-7.5 Protein NEGATIVE Negative Urine Glucose NEGATIVE Negative Ketone NEGATIVE Negative Urobilinogen NORMAL E.U./DL Normal Bilirubin NEGATIVE Negative Blood NEGATIVE Negative WBC-U NONE SEEN /HPF 0-5/HPF RBC-U NONE SEEN /HPF 0-5/HPF Bacteria NONE SEEN None Seen Squamous NONE SEEN /HPF 0-5/HPF 1 CHOLESTEROL Less than 200mg/dl Low risk 201-239 mg/dl Borderline risk Equal to or greater 240mg/dl High risk 2 TRIGLYCERIDES Less than 150mg/dl Normal 150-199mg/dl Borderline 200-499mg/dl High Greater than 500mg/dl Very High 3 HDL <40mg/dl Elevated Risk 41-59mg/dl Risk >=60mg/dl Least Risk 4 LDL <100mg/dl Optimal 100-129mg/dl Near Optimal 130-159mg/dl Borderline High 160-189mg/dl High >=190 Very High 5 VLDL Less than 30mg/dl Normal 6 CHOL/HDL <4.0 Optimal 4.0-5.0 Borderline >6.0 High Risk 7 NON-HDL 30mg/dl higher than LDL Target 8 MEAN GLUCOSE IN mg/d L/A1c% POOR CONTROL FAIR CONTROL GOOD CONTROL EXCELLENT CONTROL 360-14 210-9 180-8 120-6 330-13 150-7 90-5 300-12 270-11 240-10 Procedures Date Code Description Status 11/19/2023 3078F PVRP Diastolic BP <80 mmHg C ompleted 11/19/2023 3074F PVRP Systolic BP <130 mmHg C ompleted 11/19/2023 1101F PT SCR Future Fall Risk, No Fall Or 1 W/Out Injury Completed 08/20/2023 3078F PVRP Diastolic BP <80 mmHg C ompleted 08/20/2023 3074F PVRP Systolic BP <130 mmHg C ompleted 08/10/2023 99220 Venipuncture Routine Complet ed 07/15/2023 3079F PVRP Diastolic BP 80-89 MMHG Completed 07/15/2023 3075F PVRP Systolic BP 130 To 139 MMHG Completed 10/09/2021 [id number] Colonoscopy Completed Medical Devices Description No Information Available Encounters Type Date Location Provider Dx Diagnosis Office Visit 11/19/2023 8:30a Mario Parekh PA-C Z00.01 Encounter for general adult medical exam w abnormal findings I10 Essential (primary) hypertension E78.2 Mixed hyperlipidemia I25.731 Athscl nonaut biolog ical CABG w ang pctrs w documented spasm F33.1 Major depressive dis order, recurrent, moderate K21.9 Gastro-esophageal re flux disease without esophagitis M17.11 Unilateral primary o steoarthritis, right knee Office Visit 08/20/2023 11:00a ABDIRAHMAN DensonC I10 Essential (primary) hypertension E78.2 Mixed hyperlipidemia F33.1 Major depressive dis order, recurrent, moderate K21.9 Gastro-esophageal re flux disease without esophagitis I25.731 Athscl nonaut biolog ical CABG w ang pctrs w documented spasm Office Visit 07/15/2023 9:45a Mario currie PA-C I10 Essential (primary) hypertension I25.731 Athscl nonaut biolog ical CABG w ang pctrs w documented spasm F33.1 Major depressive dis order, recurrent, moderate K21.9 Gastro-esophageal re flux disease without esophagitis Assessments Date Code Description Provider 11/19/2023 Z00.01 Encounter for ge neral adult medical examination with abnormal findings ABDIRAHMAN WellsC 11/19/2023 I10 Essential (primary) hyperten ABDIRAHMAN TinocoC 11/19/2023 E78.2 Mixed hyperlipidemia ABDIRAHMAN WellsC 11/19/2023 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 ABDIRAHMAN WellsC 11/19/2023 F33.1 Major depressive disorder, recurrent, moderate ABDIRAHMAN WellsC 11/19/2023 K21.9 Gastro-esophagea l reflux disease without esophagitis ABDIRAHMAN WellsC 11/19/2023 M17.11 Unilateral prima ry osteoarthritis, right knee ABDIRAHMAN WellsC 10/07/2023 I10 Essential (primary) hyperten ABDIRAHMAN TinocoC 10/07/2023 E78.2 Mixed hyperlipidemia ABDIRAHMAN WellsC 10/07/2023 F33.1 Major depressive disorder, recurrent, moderate ABDIRAHMAN WellsC 08/20/2023 I10 Essential (primary) hyperten jaden Jessee Parekh PA-C 08/20/2023 E78.2 Mixed hyperlipidemia Jessee Parekh PA-C 08/20/2023 F33.1 Major depressive disorder, recurrent, moderate Jessee Parekh PA-C 08/20/2023 K21.9 Gastro-esophagea l reflux disease without esophagitis Jessee Parekh PA-C 08/20/2023 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 Jessee Parekh PA-C 08/10/2023 E03.9 Hypothyroidism, unspecified Fauzia Guadarrama MD 08/10/2023 E03.9 Hypothyroidism, unspecified Lab - [place] 08/10/2023 R73.01 Impaired fasting glucose Brissa Guadarrama MD 08/10/2023 R73.01 Impaired fasting glucose Lab - [place] 08/10/2023 E78.2 Mixed hyperlipidemia Fauzia Guadarrama MD 08/10/2023 E78.2 Mixed hyperlipidemia Lab - [place] 08/10/2023 D64.9 Anemia, unspecified Fauzia Guadarrama MD 08/10/2023 D64.9 Anemia, unspecified Lab - [place] 08/10/2023 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 Fauzia Guadarrama MD 08/10/2023 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 Lab - [facility] 08/10/2023 N40.0 Benign prostatic hyperplasia without lower urinary tract symptoms Fauzia Guadarrama MD 08/10/2023 N40.0 Benign prostatic hyperplasia without lower urinary tract symptoms Lab - [place] 08/10/2023 I10 Essential (primary) roshan Guadarrama MD 08/10/2023 I10 Essential (primary) hyperten jaden Lab - [place] 08/06/2023 I10 Essential (primary) hyperten jaden Jessee Parekh PA-C 08/06/2023 E78.2 Mixed hyperlipidemia Jessee Parekh PA-C 08/06/2023 F33.1 Major depressive disorder, recurrent, moderate Jessee Parekh PA-C 07/15/2023 I10 Essential (primary) hyperten jaden Jessee Parekh PA-C 07/15/2023 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 Jessee Parekh PA-C 07/15/2023 F33.1 Major depressive disorder, recurrent, moderate Jessee Parekh PA-C 07/15/2023 K21.9 Gastro-esophagea l reflux disease without esophagitis Jessee Parekh PA-C 07/07/2023 E78.2 Mixed hyperlipidemia Jessee Parekh PA-C 07/07/2023 K21.9 Gastro-esophagea l reflux disease without esophagitis Jessee Parekh PA-C Plan of Treatment Future Appointment(s):* 01/21/2024 9:30 am - Jessee Parekh PA-C at [facility] 11/19/2023 - Jessee Parekh PA-C* Z00.01 Encounter for general adult medical examination with abnormal findings* Comments:* Receives all vaccinations through the [facility] Up-to-date with screening recommendations Continue medications as prescribed continue to hold anticoagulants until completion of right total knee arthroplasty * I10 Essential (primary) hypertension* Comments:* Continue current medication.. Blood pressure stable Continue to monitor at home daily
BP stable * Recommendations:* Low-salt diet. Exercise. Continue medication as directed. * E78.2 Mixed hyperlipidemia* Comments:* Continue current medication. Recently had lab work through the [facility] and clearance for total knee surgery * Follow up:* Follow up 2 months * Recommendations:* Low-fat, low-cholesterol diet. Exercise. 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 * K21.9 Gastro-esophageal reflux disease without esophagitis* Comments:* Continue current medication. Avoid eating within 2 hours of bedtime Patient verbalizes understanding of care plan / instructions. * M17.11 Unilateral primary osteoarthritis, right knee* Comments:* Scheduled for right total knee arthroplasty Patient verbalizes understanding of care plan / instructions. Functional Status Description No Information Available Mental Status Description No Information Available Referrals Description No Information Available
--- OUTSIDE RECORDS SUMMARY | 2023-11-27 15:47 | External Medical Summary | Continuity of Care Document ---
Author Name Unknown Organization [place] Address [address] [place] [address] Phone [phone] Care Team Providers Care [employer] Name Role Phone [facility] Care Team Information Receive r [phone] [facility] - [facility] Care Team Information Assistant To The President [phone] Problems Active Problems Provider Date Mixed hyperlipidemia Jessee Parekh PA-C Ons et: Essential hypertension Jessee Paerkh PA-C O nset: Hypothyroidism Jessee Parekh PA-C [...] SIG Qnty Indications Order ing Provider Date Yjxzacuatbf735wu Capsules Four capsules prior to dental procedure 10britney Guadarrama MD 10/02/2023 Rzutozhmp65ty Tablets 1 by mouth every day 90tabs Fauzia Guadarrama MD 09/23/2023 Zlzynpc24gp Tablets 1 by mouth every day 90tabs Fauzia Guadarrama MD 02/09/2023 Hqagpxxd94qx Capsules one capsule daily 180caps Fauzia Guadarrama MD 12/10/2022 Ferrous Tedbyps609(65Fe) mg Tablets take 1 tablet by mouth daily 60tabs Fauzia Guadarrama MD 11/25/2022 Clopidogrel Pdesbnipg72hx Tablets Take 1 tablet by mouth once daily 30tabs Fauzia Guadarrama MD 08/05/2022 Nitroglycerin0.4mg Tablets Sub one by mouth sl every 5 minutes x3 as needed chest pain 30tabs Fauzia Guadarrama MD 07/21/[address] 1 by mouth every day 90caps K21.9 Fauzia Guadarrama MD 06/03/2022 Clgjpocqav4xi Tablets 1 by mouth four times a day prior to meals as needed 120tabs Fauzia Guadarrama MD 06/03/2022 Saline Nasal Spray0.65% Solution use 2- 3 times a day 88ml J32.0 Fauzia Guadarrama MD 03/25/2022 Zyrtec Qfcexbo55pr Tablets 1 by mouth every day 30tabs J32.0 Fauzia Guadarrama MD 03/25/2022 Fluticasone Ktgkddwfyk27fae/Act Suspension 2 sprays each nostril every day 48gm Fauzia Guadarrama MD 02/14/2022 Medical Alert SystemDevice use at all times 1units I25.731 Fauzia Guadarrama MD 12/27/2021 Mjunvbhxib62ib Tablets 1 by mouth every day as needed for fluid 30tabs Fauzia Guadarrama MD 11/22/2021 Atorvastatin Dhfuwid03yc Tablets 1 by mouth every day E78.2 Fauzia Guadarrama MD 10/24/2021 Levocetirizine Ojvqumjmqscaiox8wt Tablets take one tablet by mouth at bedtime 90tabs Fauzia Guadarrama MD 10/24/2021 Bnizmmxnf25jtu Tablets once daily 90tabs E03.9 Aurelio Llanes MD 11/09/2020 Metoprolol Qnbgvwfs25ue Tablets 1 by mouth twice a day 180tabs Aurelio Llanes MD 11/09/2020 Albuterol Sulfate KPJ672(90Base) mcg/Act Aerosol 2 puffs by mouth every 4-6 hours as needed wheezing 8.500gm J45.998 Usman Burciaga JR, MD 05/19/2019 Multivitamin AdultTablets 1 by mouth every day Usman Burciaga JR, MD 05/05/2019 Esspqdyagk010ev Capsules 1 by mouth twice daily 270caps [...] every day 90caps Fauzia Guadarrama MD Montelukast Gezwhb22cp Tablets 1 by mouth every day Unknown Vitamin F994816pzu Tablets ER 1 by mouth every day Usman Burciaga JR, MD History Medications Repatha Poljeuajy452xq/ml Solution Auto-Inject one every other week 6ml Fauzia Guadarrama MD 09/03/2023 - 10/09/2023 Medications Administered in Office Medication SIG Qnty Indications Ordering Provider Date Injection Dexamethasone Sodium Phosphate, 1 MGInjection Jessee Parekh PA-C 05/08 Injection Kenalog 10 MG NDC [id number] Yolette Wells A-C 04/27/2023 Injection Dexamethasone Sodium [...] PA-C 10/2020 Injection Kenalog 10 MG NDC [id number] Jessee Parekh, P A-C 01/18/2021 Injection Kenalog 10 MG NDC 19935724945Eaokzjodn Jessee Parekh, P A-C 01/26/2020 Injection Kenalog 10 MG NDC [id number] Jessee Parekh, P A-C 12/15/2019 Injection Kenalog 10 MG NDC 52169638074Qeivwyqzw Jessee Parekh, P A-C 11/08/2019 Injection Dexamethasone Sodium Phosphate, 1 MGInjection Jessee Parekh, ABDIRAHMANC 11/2019 Injection Kenalog 10 MG NDC 26410102845Jahnybjtv DARWIN Sainz 10/21/2019 Injection Dexamethasone Sodium Phosphate, 1 MGInjection DARWIN Schrader 10/21/2019 Injection Kenalog 10 MG NDC [id number] Jessee Gilberto Harpera, P A-C 06/23/2019 Injection Kenalog 10 MG NDC 30161806136Txxphdgdz Jessee Gilberto Harpera, P A-C 12/30/2018 Injection Kenalog 10 MG NDC 73719459560Vrriwenbc Kelly CharlesDARWIN Nelson 10/04/2018 Injection Kenalog 10 MG NDC 94307264132Ydcdmzxxt Jessee Gilberto Harpera, P A-C 06/24/2018 Injection Kenalog 10 MG NDC 96209028261Qawyhuvhu Jessee Gilberto Lazrosaa, P A-C 11/17/2017 Injection Dexamethasone Sodium Phosphate, 1 MGInjection Jessee Gilberto Harpera, PA-C 11/05 Injection Kenalog 10 MG NDC 12843720425Wfoviwkka Jessee Gilberto Harpera, P A-C 05/21/2017 Injection Dexamethasone Sodium Phosphate, 1 MGInjection Jesseeava Harpera, PA-C 05/08 Injection Dexamethasone 1 MGInjection Jesseeava Harpera, PA-C 05/08 Immunizations CPT Code Status Date Vaccine Lot # [id number] Given 06/24/2023 Sarscov2 Vaccin e 50 mcg/0.5 ML For Im Use 12 Yrs And Older U-FLU Given 06/12/2023 Influenza,Unspecified 13042 Given 06/18/2022 Pfizer Sars-Cov -2 (Covid-19) Vx, BiValent Booster, 12+ 85761 Given 01/21/2022 Moderna Covid-1 9 Vaccine 50mcg Booster-EMR Doc Only [id number] 42840 Given 07/06/2021 Moderna Sars-Co v-2 (Cov-19) vacc,100 mcg/ 0.5 mL 12Y+EMR Doc Only U-FLU Given 06/24/2021 Influenza,Unspecified 84963 Given 11/05/2020 Moderna Sars-Co v-2 (Cov-19) vacc,100 mcg/ 0.5 mL 12Y+EMR Doc Only 73698 Given 10/05/2020 Moderna Sars-Co v-2 (Cov-19) vacc,100 mcg/ 0.5 mL 12Y+EMR Doc Only U-FLU Given 06/15/2020 Influenza,Unspecified 17592 Given 06/15/2020 Influenza Vacci ne-Administered at another facility U-FLU Given 06/06/2019 Influenza,Unspecified 09575 Given 06/06/2019 Influenza Vacci ne-Administered at another facility U-FLU Given 06/28/2018 Influenza,Unspecified 80307 Given 12/29/2017 Pneumococcal Conjugate-Pr evnar 13 [id number] 68335 Given 12/29/2017 Pneumococcal Conjugate-Pr evnar 13 71758 Given 07/19/2017 Influenza Vacci ne-Administered at another facility 69604 Given 04/25/2016 Tdap (Tetanus, diphtheria & acel. pertussis) Adacel or Boostrix 65440 Given 10/08/2011 Zostavax Vaccine 94223 Given 10/08/2011 Pneumococcal Vaccine/Pneu movax 23 U-FLU Given 06/20/2011 Influenza,Unspecified U-TD Given 08/04/2005 Td(Adult),Unspecified 07716 Given Unknown Influenza Virus Vaccine, Quadrivalent (Cciiv4), Derived From Cell 85730 Refused 12/30/2018 Influenza Virus Vaccine, Quadrivalent (Cciiv4), Derived From Cell [id number] Refused 12/01/2018 Shingrix Vital Signs Date Vital Result Comment 11/19/2023 8:21am BP Systolic 116 mmHg BP Diastolic 66 mmHg Body Temperature 97.3 F Heart Rate 71 /min Respiratory Rate 14 /min Weight 201.00 lb Weight 91.174 kg Height 63 inches 5'3" BMI (Body Mass Index) 35.6 kg/m2 O2 % BldC Oximetry 94 % Ruston Body Weight 124 lb 08/20/2023 10:43am BP Systolic 116 mmHg BP Diastolic 78 mmHg Body Temperature 97.4 F Heart Rate 58 /min Respiratory Rate 15 /min Weight 204.00 lb Weight 92.534 kg Height 63 inches 5'3" BMI (Body Mass Index) 36.1 kg/m2 O2 % BldC Oximetry 96 % [place]on Body Weight 124 lb Results Test Acquired Date Facility Test Result H/L Range N ote CBC W/Diff 08/10/2023 [facility] [address] [place] [address] [phone] WBC 4.8 10^3/M3 3.1-9.2 RBC 4.97 10^6/M3 4.00-5.80 HGB 16.4 GR/DL 12.5-17.5 HCT 49.2 % 37.5-52.5 MCV 99.0 CUMICR High 82.6-95.8 MCH 32.9 PICOGR 27.9-32.9 MCHC 33.2 % 32.6-35.4 RDW 13.5 % 11.4-14.6 PLT 278 10^3/M3 140-350 MPV 8.3 CUMICR 7.0-10.6 %Neut 61.2 % 40.0-75.0 %Lymph 22.5 % 17.0-45.0 %Caswell 13.4 % High 1.0-11.0 %Eos 2.0 % 0.0-6.0 %Baso 0.9 % 0.0-2.0 #Neut 2.9 10^3/M3 1.5-8.0 #Lymph 1.1 10^3/M3 0.8-3.2 #Caswell 0.6 10^3/M3 0.0-0.8 #Eos 0.1 10^3/m3 0.0-0.4 #Baso 0.0 10^3/m3 0.0-0.2 Comp. Met 08/10/2023 [facility] [address] [place] [address] [phone] Glucose 98 mg/dL 70-110 BUN 17 mg/dL [...] 2.0-3.4 GFR 100 ML/MIN/1.73SQM >60 Lipid 08/10/2023 [facility] [address] [place] [address] [phone] Cholesterol 175 mg/dL 0-200 1 Triglyceride 228 mg/dL High 0-150 2 HDLD 42 mg/dL See Comment 3 Measured LDL 99 mg/dL 0-130 4 Calc VLDL 45.6 mg/dL See Comment 5 Chol/HDL 4.2 RATIO See Comment 6 Non-HDL 133 mg/dL See Comment 7 Laboratory test finding 08/10/2023 [facility] [address] [place] [address] [phone] TSH 5.56 uIU/mL 0.50-6.00 Hba1c 08/10/2023 [facility] [address] [place] [address] [phone] A1c 6.00 % 4.70-6.50 8 Iron Panel([employer]) 08/10/2023 [facility] [address] [place] [address] [phone] Iron 113 g /dL 45-140 % Saturation 31 % 30-35 Tibc 08/10/2023 [facility] [address] [place] [address] [phone] Tibc 365 g /dL 260-400 Transferrin 261 mg/dL 200-400 Laboratory test finding 08/10/2023 [facility] [address] [place] [address] [phone] Psa2 2.0 ng/mL 0.0-4.0 VB12 300 pg/mL 230-1050 Urinalysis,Cult If Indicated 08/10/2023 [facility] [address] [place] [address] [phone] RFLX Culture NO Urinalysis 08/10/2023 [facility] [address] [place] [address] [phone] Color COLORLESS Appearance CLEAR Clear Spec.Grav. 1.005 [...] Systolic BP <130 mmHg C ompleted 08/10/2023 78155 Venipuncture Routine Complet ed 07/15/2023 3079F PVRP Diastolic BP 80-89 MMHG Completed 07/15/2023 3075F PVRP Systolic BP 130 To 139 MMHG Completed 05/22/2023 J1100 Injection Dexamethasone Sodi um Phosphate, 1 MG Completed 05/22/2023 85792 Inj Subcutaneous Or Intramus cular Completed 05/22/2023 3079F PVRP Diastolic BP 80-89 MMHG Completed 05/22/2023 3077F PVRP Systolic BP >/= 140 MMH G Completed 10/09/2021 [id number] Colonoscopy Completed Medical Devices Description No Information Available Encounters Type Date Location Provider Dx Diagnosis Office Visit 11/19/2023 8:30a [facility] Jessee D. Lazorka, PA-C Z00.01 Encounter for general adult medical exam w abnormal findings I10 Essential (primary) hypertension E78.2 Mixed hyperlipidemia I25.731 Athscl nonaut biolog ical CABG w ang pctrs w documented spasm F33.1 Major depressive dis order, recurrent, moderate K21.9 Gastro-esophageal re flux disease without esophagitis M17.11 Unilateral primary o steoarthritis, right knee Office Visit 08/20/2023 11:00a Mario Parekh PA-C I10 Essential (primary) hypertension E78.2 Mixed hyperlipidemia [...] K21.9 Gastro-esophageal re flux disease without esophagitis Office Visit 05/22/2023 9:45a Mario currie PA-C I10 Essential (primary) hypertension E78.2 Mixed hyperlipidemia F33.1 Major depressive dis order, recurrent, moderate E03.9 Hypothyroidism, unsp ecified J32.0 Chronic maxillary si nusitis Assessments Date Code Description Provider 11/19/2023 Z00.01 Encounter for ge neral adult medical examination with abnormal findings Jessee Parekh PA-C 11/19/2023 I10 Essential (primary) hyperten jaden Jessee Parekh PA-C 11/19/2023 E78.2 Mixed hyperlipidemia Jessee Parekh PA-C 11/19/2023 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 Jessee Parekh PA-C 11/19/2023 F33.1 Major depressive disorder, recurrent, moderate Jessee Parekh PA-C 11/19/2023 K21.9 Gastro-esophagea l reflux disease without esophagitis Jesseeava Parekh, LOGAN-C 11/19/2023 M17.11 Unilateral prima ry osteoarthritis, right knee Jessee LOGAN Hudson-C 10/07/2023 I10 Essential (primary) hyperten jaden Jessee Macias Iglesia, LOGAN-C 10/07/2023 E78.2 Mixed hyperlipidemia Jessee ClaudeChiquita Parekh, LOGAN-C 10/07/2023 F33.1 Major depressive disorder, recurrent, moderate Jessee ArceChiquita Parekh, PA-C 08/20/2023 I10 Essential (primary) hyperten jaden Macias Iglesia, LOGAN-C 08/20/2023 E78.2 Mixed hyperlipidemia Jessee DChiquita Parekh, LOGAN-C 08/20/2023 F33.1 Major depressive disorder, recurrent, moderate Jessee LOGAN Hudson-C 08/20/2023 K21.9 Gastro-esophagea l reflux disease without esophagitis JesseeLOGAN Avina-C 08/20/2023 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 ABDIRAHMAN WellsC 08/10/2023 E03.9 Hypothyroidism, unspecified Fauzia Guadarrama MD 08/10/2023 E03.9 Hypothyroidism, unspecified Lab - [facility] 08/10/2023 R73.01 Impaired fasting glucose Birssa Guadarrama MD 08/10/2023 R73.01 Impaired fasting glucose Lab - [facility] 08/10/2023 E78.2 Mixed hyperlipidemia Fauzia Guadarrama MD [...] angina pectoris with documented spasm Lab - [facility] 08/10/2023 N40.0 Benign prostatic hyperplasia without lower urinary tract symptoms Fauzia Guadarrama MD 08/10/2023 N40.0 Benign prostatic hyperplasia without lower urinary tract symptoms Lab - [facility] 08/10/2023 I10 Essential (primary) hyperten jaden Fauzia Guadarrama MD 08/10/2023 I10 Essential (primary) hyperten jaden [facility] - [facility] 08/06/2023 I10 Essential (primary) hyperten jaden Jessee Parekh PA-C 08/06/2023 E78.2 Mixed hyperlipidemia Jessee Parekh, PA-C 08/06/2023 F33.1 Major depressive disorder, recurrent, moderate Jessee Parekh, PA-C 07/15/2023 I10 Essential (primary) hyperten jaden Jessee Parekh, PA-C 07/15/2023 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 Jessee Parekh, PA-C 07/15/2023 F33.1 Major depressive disorder, recurrent, moderate Jessee Parekh, PA-C 07/15/2023 K21.9 Gastro-esophagea l reflux disease without esophagitis Jessee Parekh, PA-C 07/07/2023 E78.2 Mixed hyperlipidemia Jessee Parekh PA-C 07/07/2023 K21.9 Gastro-esophagea l reflux disease without esophagitis Jessee Parekh, PA-C 05/22/2023 I10 Essential (primary) hyperten jaden Parekh, PA-C 05/22/2023 E78.2 Mixed hyperlipidemia Jessee Parekh, PA-C 05/22/2023 F33.1 Major depressive disorder, recurrent, moderate Jessee Parekh PA-C 05/22/2023 E03.9 Hypothyroidism, unspecified Jessee Parekh, PA-C 05/22/2023 J32.0 Chronic maxillary sinusitis Jessee Parekh PA-C Plan of Treatment Future Appointment(s):* 01/21/2024 9:30 am - Jessee Parekh PA-C at [place] 11/19/2023 - Jessee Parekh PA-C* Z00.01 Encounter for general adult medical examination with abnormal findings* Comments:* [facility] Up[facility]date with screening recommendations Continue medications as prescribed continue to hold anticoagulants until completion of right total knee arthroplasty * I10 Essential (primary) hypertension* Comments:* Continue current medication.. Blood pressure stable Continue to monitor at home daily
BP stable * Recommendations:* Low-salt diet. Exercise. Continue medication as directed. * E78.2 Mixed hyperlipidemia* Comments:* Continue current medication. Recently had lab work through the [facility] and clearance for total knee surgery * [...]
[2023-11-27] MEDS: ceFAZolin 1000MG 1,000 MG/7.5 ML SYR IV SCH (17:08)
[2023-11-27] MEDS: ASPIRIN 81 MG ECTAB PO SCH (19:54)
[2023-11-27] MEDS: SENNA 8.6 MG TAB PO SCH (19:54)
[2023-11-27] MEDS: GABAPENTIN 100 MG CAP PO SCH (19:55)
[2023-11-27] MEDS: METOPROLOL TARTRATE 50 MG TAB PO SCH (19:55)
[2023-11-27] MEDS: bisacodyL 5 MG TABEC PO SCH (19:56)
[2023-11-27] MEDS: ATORVASTATIN 40 MG TAB PO SCH (19:56)
[2023-11-27] MEDS: DOCUSATE SODIUM 100 MG CAP PO SCH (19:56)
[2023-11-27] MEDS: EZETIMIBE 10 MG TAB PO SCH (19:56)
[2023-11-27] MEDS: TAMSULOSIN HCL 0.4 MG CAP PO SCH (19:56)
[2023-11-28] MEDS: LEVOTHYROXINE SODIUM 75 MCG TABLET PO SCH (05:14)
[2023-11-28] MEDS: dexAMETHasone 4 MG TAB PO SCH (07:30)
--- NOTE | 2023-11-28 07:58 | Orthopedic Progress Note ---
Date of Service November 28, 2023 Assessment & Plan (1) Status post right knee replacement: Overall he is doing very well. Is not having much pain in the right knee. He will be seen by physical therapy today for ambulation and range of motion exercises. He is on aspirin and Plavix for DVT prophylaxis. He can be discharged home later today. He will follow-up orthopedics in 2 weeks. Valery Dick was seen and examined at bedside this morning. Overall is doing very well. Is not having much pain in the right knee. He has been up and ambulating at bedside. Has no complaints.. Review of Systems All systems reviewed & are unremarkable except as noted in HPI & below. Physical Exam On physical examination of right knee, the dressing is clean and dry. His leg is out full extension. He has active dorsiflexion plantarflexion of his right ankle.. Results & Data Results & Data Laboratory Results . Diagnostic Findings Postoperative x-rays of the right knee show the prosthesis to be in anatomic alignment without any evidence of fracture complication, or loosening.. PG Care Time/CCT Total # of Minutes Spent Total Time Spent with Patient: Total time spent is greater than 50% in coordination of care (as documented) at patient's floor/unit and/or counseling patient: Coding Level of Care Code 87164 Post Operative Follow-Up Diagnoses Status post right knee replacement Z96.651
--- NOTE | 2023-11-28 07:59 | Discharge Summary ---
Date of Service November 28, 2023 Admission HPI (Per Admitting) Kapil is a pleasant 78-year-old male who has been dealing with chronic bilateral knee pain. He has laid tile for years. He has been [facility] the [facility]. X-rays have shown advanced arthritis. He has been given cortisone injections and viscosupplementation. Unfortunately, he is still struggling with the knees. After finding since conservative treatment, he has elected to proceed with a right total knee arthroplasty. Admission Exam (Per Admitting) On physical exam of the right knee, he does have a varus deformity. He has tenderness palpation over the distal medial femoral condyle and over the medial joint line.. Principal Diagnosis Same as "Discharge Diagnosis" noted below under Discharge Instructions. Discharge Exam On physical examination of right knee, the dressing is clean and dry. His leg is out full extension. He has active dorsiflexion plantarflexion of his right ankle.. Discharge Data Procedures Performed Operation Date: 11/27/23 08:00 Actual Procedures p Right Total Knee Arthroplasty, Cemented(Right) - Reno Hooks DO Ordered Studies 11/27/23 05:00 US - OR guided needle placemen Routine Hospital Course (1) Status post right knee replacement: On November 27, 2023 Kapil arrived at [facility] and underwent a right knee replacement without complication. He had a spinal anesthetic. Postoperatively he was started on aspirin and Plavix for DVT prophylaxis and transferred to the general orthopedic floors. His hospital course was uneventful. On postop day #1, his vital signs were stable and his pain was well-controlled. He was able to participate well with physical therapy doing ambulation and range of motion exercises. He was then discharged home. He will follow-up orthopedics in 2 weeks. PG Care Time/CCT Total # of Minutes Spent Total Time Spent with Patient: Total time spent is greater than 50% in coordination of care (as documented) at patient's floor/unit and/or counseling patient: Discharge Plan Discharge Items Patient Disposition: Home - Self-Care Reason For Visit: POST OP Discharge Diagnosis: Right knee replacement Activity: Per Instructions section Non-emergency contact: Surgeon Call non-emergency contact if: your wound has increased redness and your wound has increased drainage Follow-up/Referrals: Jessee Parekh PA-C [Primary Care Provider] - Diet: Regular Addtl Attending Provider Instructions: Activity and Therapy Recommendations: * If you are using [facility] then therapy will be provided at your home until they feel you have accomplished all of your goals. * If you are using [facility] then Physical Therapy will be provided until they feel you are ready to start Outpatient Physical Therapy. * If you are not using home therapy then Outpatient Physical Therapy should start about 3-5 days from your day of surgery. Therapy will last about 6-10 weeks * It is important not to put a pillow under your knee when you are relaxing or sleeping. It is just as important to make sure you are getting your knee perfectly straight as it is to regain your knee bend. * You were shown a series of exercises in the hospital. Do these exercises three times each day including the exercises you were shown in physical therapy. * Get up and walk several times each day. For the first four weeks, try not to stand or walk for more than one hour at a time. If you do stand or walk for more than one hour, you will not hurt anything, but your leg will likely swell. * As you feel comfortable, you may change from the walker or crutches to a cane and then to independent walking. Medications: * Narcotic You will likely be sent home from the hospital with a prescription for the narcotic pain medication that worked best throughout your stay. * Cefadroxil -take the antibiotic twice a day for 10 days to help prevent infection. * Aspirin Most patients will be required to take Aspirin 81mg twice a day for 6 weeks after surgery. This is obtained gdpi-zlf-mfykawq and a prescription is not necessary. * Other medications may be prescribed for specific circumstances. If you have any questions, please call the office at . * Resume previous home medications unless otherwise instructed TEDs/Elastic Stockings: The white elastic stockings help limit swelling and prevent blood clots from forming in your legs.~ The more you wear them, the more they work. Wear them for six weeks. Dressing Care: The dressing can be changed after physical therapy on postop day #1. Daily dry dressing changes for a few days, especially if the incision is still draining some. If the incision is not draining then you may leave the sidney open to air. If there is a little bit of drainage or if the sidney are getting stuck on your clothing then cover the incision with a dry dressing. The sidney will be removed at your 2 week follow-up appointment. Showering: You may shower 5 days from the day of surgery as long as the incision is no longer draining. You may shower with the sidney exposed. Let soapy water run over the sidney and pat them dry. Do not scrub or soak the incision. Things To Watch For: * Drainage from the incision site that occurs more than one week after your surgery. * Increased redness at the incision site. * Fever above 102 degrees Fahrenheit. * Unusual chest pain or shortness of breath. * Call [facility] at with any of the above problems Follow-Up Visit: Follow-up with Dr. Hooks's PA (Reno Watson) 2-3 weeks after your day of surgery. He will remove your sidney and answer any questions. If you have any additional questions or concerns, Dr Hooks is usually in the office at the same time and will be available An appointment was probably scheduled when you signed-up for surgery in the office. If you have any questions call Office Instructions: More detailed instructions as well as Frequently Asked Questions were provided in a folder by our office when you signed-up for surgery. Please review these instructions when you get home. If you have any further questions or concerns, please feel free to call the office at [phone] Pending Studies at Discharge: No Stand-Alone Forms: [facility], Smoking Cessation Medications and DC Order Prescriptions: New oxycodone 5 mg Tablet 5 mg PO Q4H PRN (Reason: pain) Qty: 30 0RF cefadroxil 500 mg capsule 500 mg PO BID 10 Days Qty: 20 0RF aspirin 81 mg Tablet,Delayed Release (Dr/Ec) 81 mg PO BID 42 Days Qty: 84 0RF Continued multivitamin Tablet 1 tab PO QAM atorvastatin 40 mg Tablet 40 mg PO QPM levothyroxine 75 mcg Tablet 75 mcg PO QAM tamsulosin 0.4 mg Capsule 0.4 mg PO QPM metoprolol tartrate 50 mg Tablet 50 mg PO BID bisacodyl [Dulcolax (bisacodyl)] 5 mg Tablet,Delayed Release (Dr/Ec) 5 mg PO QPM gabapentin 100 mg Capsule 100 mg PO BID albuterol sulfate 90 mcg/actuation Hfa Aerosol Inhaler 1 inh INHALATION QID PRN (Reason: SHORT OF BREATH) fluticasone propionate 50 mcg/actuation [place],Suspension 1 spray INTRANASAL BID cholecalciferol (vitamin D3) [Vitamin D3] 25 mcg (1,000 unit) Tablet 25 mcg PO QAM levocetirizine 5 mg Tablet 5 mg PO QAM naproxen sodium [Aleve] 220 mg Capsule 220 mg PO BID clopidogrel 75 mg Tablet 75 mg PO QAM pantoprazole 40 mg Tablet,Delayed Release (Dr/Ec) 40 mg PO QAM ezetimibe [Zetia] 10 mg Tablet 10 mg PO QPM Accrufer 30 mg Capsule 30 mg PO QAM Discharge Orders: Discharge Order (Routine); Ordered 11/28/23 Ordered By: Reno Hooks Admission Data Admit Date/Time: 11/27/23 09:41 Attending Provider: Reno Hooks Admit Provider: Reno Hooks Primary Care Provider: Jessee Parekh Other Providers: [facility]
[2023-11-28] MEDS: CLOPIDOGREL BISULFATE 75 MG TAB PO SCH (09:20)
[2023-11-28] MEDS: PANTOprazole 40 MG TAB PO SCH (09:20)
[2023-11-28] MEDS: CETIRIZINE HCL 10 MG TABLET PO SCH (09:20)
[2023-11-28] MEDS: MULTIVITAMIN TAB PO SCH (09:20)
[2023-11-28] MEDS: oxyCODONE HCL IR 5 MG TAB (IMMEDIATE RELEASE) PO PRN (11:14)
== END 2023-11-28 11:30 | disposition home health service (06) ==
LOC: 3E 06:24 → ASU 06:24
DX: Z88.8 Allergy status to other drugs, medicaments and biological substances; Z79.899 Other long term (current) drug therapy; I25.10 Atherosclerotic heart disease of native coronary artery without angina pectoris; G47.33 Obstructive sleep apnea (adult) (pediatric); K21.9 Gastro-esophageal reflux disease without esophagitis; M17.11 Unilateral primary osteoarthritis, right knee; Z79.890 Hormone replacement therapy; Z88.1 Allergy status to other antibiotic agents

== ENCOUNTER 2023-12-05 23:09 | Inpatient (IN) ==
--- NOTE | 2023-12-05 23:20 | Emergency Department Note ---
Impression & Plan Abdominal pain, lower, Acute constipation, Hematuria ED Provider Note HISTORY OF PRESENT ILLNESS: Patient is a 78-year-old male presenting with lower abdominal pain and hematuria. Patient reports he presented to [facility] emergency department earlier this evening for poor oral intake and inability to void. He reports that a Rizvi catheter was placed at their facility, and he was discharged home. He reports that since being home he has been having significant worsening pain in his lower abdomen. He has noticed some blood in his Rizvi catheter bag and around his urethral meatus. He had right knee replacement surgery performed at [facility] last week. He reports has not had a bowel movement since surgery. He states that he is passing flatus. He currently rates the pain a 7 out of 10. He reports he feels very bloated. Denies any nausea, vomiting or diarrhea. Denies any fevers. He is on Plavix. ROS: as above PHYSICAL EXAM: Constitutional: Patient appears in no acute distress. HENT: Head: Normocephalic and atraumatic. Eyes: EOMI, PERRL Mouth/Throat: Mucous membranes moist. Neck: Trachea midline. Neck supple. Cardiovascular: RRR, No murmurs, rubs or gallops. Intact distal pulses. Pulmonary/Chest: No respiratory distress. Breath sounds clear and equal bilaterally. No wheezes or rales. Abdominal: Abdomen soft, no tenderness, rebound or guarding. Musculoskeletal: No edema, tenderness or deformity noted. Skin: Warm and dry. No rash, erythema, pallor or cyanosis Psychiatric: Appropriate mood and affect for situation. Neurological: Alert and keenly responsive. CN II-XII grossly intact, moving all extremities equally and fully. MDM: - Vitals signs showed slight tachycardia. - History obtained via patient. History as above. - Chronic conditions affecting care: CAD; HTN; HLD; hypothyroidism; GERD; BPH - Differential diagnoses include, but are not limited to: traumatic rizvi insertion; small bowel obstruction; constipation; appendicitis - Order placed for continuous cardiac monitoring. At this time, monitor showed rate of 86 bpm with normal sinus rhythm, per my interpretation. - External medical records reviewed. - Laboratory workup interpreted by myself showed leukocytosis (WBC 14.78); thrombocytosis (plt 537); stable electrolytes; normal lactate; normal lipase - CT abdomen/pelvis wo contrast showed scattered gas/fluid levels throughout the colon with the right colon measuring around 7.8 cm consistent with an ileus and/or enteritis. Noted to have a large amount of stool in the rectum measuring 6.7 cm suggesting constipation. No evidence of obstruction. - UA showed blood and white blood cells but no evidence of bacteria. Patient did just have the Rizvi catheter inserted at outside facility this evening. Hematuria is likely secondary to Rizvi insertion - Patient given 50 mcg IV fentanyl on arrival to ER. He was given a soapsuds enema and then a milk and molasses enema. He was having some straining with his bowel movement and stated that his abdominal pain had returned. He did successfully have a large bowel movement in the emergency department. On reassessment, the patient is feeling improved. - Discussed results with patient. Recommended close follow-up with his primary care provider and with urology. Recommended staying well-hydrated over the next few days and taking [id number] Senokot or Colace for his constipation. - Was going to discharge patient, but his family expressed to the nurse that they do not feel safe taking him home. - Discussion was had with correctional case manager about patient's case and need for admission - Hospitalist consulted for admission - Patient admitted to [facility] for further evaluation and management. ASSESSMENT AND PLAN: Diagnosis: lower abdominal pain; hematuria; constipation Plan: admit Past Med/Surg History Medical History Contact dermatitis Sleep apnea on CPAP-compliant History of blood transfusion during CABG Coronary artery disease CABG x 5 (11/2021) Stent x1 (07/2022) 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 BPH (benign prostatic hyperplasia) GERD (gastroesophageal reflux disease) controlled, stable per pt Hypothyroidism Migraine Hypertension controlled, stable per pt Hyperlipidemia Seasonal allergies Asthma controlled, stable per pt; last rescue inhaler use several weeks ago Surgical History Hx of inguinal hernia repair History of cardiac cath Stent x1 (07/2022) History of coronary artery bypass graft 11/2021, [facility] History of esophagogastroduodenoscopy (EGD) History of colonoscopy [place] teeth removed History of tonsillectomy Family History Mother Family history of diabetes mellitus Daughter Family history of diabetes mellitus Other No family history of adverse response to anesthesia Social History Smoking Status: Never smoker Second Hand Exposure: Yes (childhood); Do You Dip or Chew Tobacco: No; Hx Alcohol Use: Yes Hx Substance Use: No Preferred Language: Divehi Communication Ability: Effective Park Superintendent Required: No Beliefs That Will Affect Care: None Current Living Situation: Alone Current Living Situation Comment: WITH DAUGHTER Feels Safe at Home: Yes Assistive Devices: Cane and Walker Allergies Allergies Allergy/AdvReac Type Severity Reaction Status Date / Time clarithromycin Allergy Mild Rash Verified 12/06/23 01:42 lisinopril AdvReac Mild Cough Verified 12/06/23 01:42 prednisone AdvReac Mild Gastrointestinal Verified 12/06/23 01:42 Upset Home Meds Home Medications Medication Instructions Recorded Confirmed albuterol sulfate 90 mcg/actuation 1 inh inhalation QID PRN SHORT OF 10/07/21 12/06/23 aerosol inhaler BREATH atorvastatin 40 mg tablet 40 mg PO QPM 10/07/21 12/06/23 bisacodyl 5 mg tablet,delayed 5 mg PO QPM 10/07/21 12/06/23 release (Dulcolax (bisacodyl)) cholecalciferol (vitamin D3) 25 25 mcg PO QAM 10/07/21 12/06/23 mcg (1,000 unit) tablet (Vitamin D3) fluticasone propionate 50 1 spray intranasal BID 10/07/21 12/06/23 mcg/actuation nasal spray,suspension gabapentin 100 mg capsule 100 mg PO BID 10/07/21 12/06/23 levocetirizine 5 mg tablet 5 mg PO QAM 10/07/21 12/06/23 levothyroxine 75 mcg tablet 75 mcg PO QAM 10/07/21 12/06/23 metoprolol tartrate 50 mg tablet 50 mg PO BID 10/07/21 12/06/23 multivitamin 1 tab PO QAM 10/07/21 12/06/23 naproxen sodium 220 mg capsule 220 mg PO BID 10/07/21 12/06/23 (Aleve) tamsulosin 0.4 mg capsule 0.4 mg PO QPM 10/07/21 12/06/23 clopidogrel 75 mg tablet 75 mg PO QAM 10/29/23 12/06/23 ezetimibe 10 mg tablet (Zetia) 10 mg PO QPM 10/29/23 12/06/23 ferric maltol 30 mg capsule 30 mg PO QAM 10/29/23 12/06/23 (Accrufer) pantoprazole 40 mg tablet,delayed 40 mg PO QAM 10/29/23 12/06/23 release Previous Rx's Medication Instructions Recorded aspirin 81 mg tablet,delayed 81 mg PO BID 42 days #84 tabs 11/28/23 release cefadroxil 500 mg capsule 500 mg PO BID 10 days #20 caps 11/28/23 oxycodone 5 mg tablet 5 mg PO Q4H PRN pain #30 tabs 11/28/23 Results & Data (ED) Vital Signs Vital Signs - 24 hr 12/05/23 23:20 12/05/23 23:30 12/05/23 23:30 Temperature 36.7 C Temperature Source Oral Pulse Rate 94 H 91 H Pulse Rate [Apical] 94 H Pulse Rhythm [Apical] Pulse Strength [Apical] Respiratory Rate 18 20 Respiratory Effort / Characteristics Non-Labored Non-Labored Respiratory Depth Normal Normal Respiratory Pattern Regular Regular Blood Pressure 133/92 Blood Pressure [Right Arm] 133/92 Blood Pressure Mean 105 Blood Pressure Mean [Right Arm] 105 Pulse Oximetry 90 90 Oxygen Delivery Method Room Air Room Air Oxygen Flow Rate Sepsis Recent Fever Within 48 Hours No Sepsis New/Unexplained Change in Mental Status N/A Sepsis Action Taken by Nursing No Action Required 12/05/23 23:30 12/06/23 01:26 Temperature Temperature Source Pulse Rate 91 H Pulse Rate [Apical] 85 Pulse Rhythm [Apical] Regular Pulse Strength [Apical] Normal Respiratory Rate 18 18 Respiratory Effort / Characteristics Non-Labored Spontaneous Respiratory Depth Normal Respiratory Pattern Regular Blood Pressure Blood Pressure [Right Arm] 139/82 Blood Pressure Mean Blood Pressure Mean [Right Arm] 101 Pulse Oximetry 90 94 Oxygen Delivery Method Room Air Room Air Oxygen Flow Rate 0 Sepsis Recent Fever Within 48 Hours Sepsis New/Unexplained Change in Mental Status Sepsis Action Taken by Nursing Laboratory Data 12/05/23 23:20 12/05/23 23:20 Lab Results 12/05/23 12/06/23 12/06/23 Range/Units 23:20 00:13 00:28 WBC 14.58 H (4.8-10.8) K/ul RBC 4.11 L (4.70-6.10) M/uL Hgb 13.2 L (14.0-18.0) g/dl Hct 40.1 L (42.0-52.0) % MCV 97.6 (80.0-100.0) fL MCH 32.1 (25.0-34.0) pg MCHC 32.9 (32.0-36.0) g/dL RDW Std Deviation 44.8 (36.4-46.3) fL RDW Coeff of [place]Marie 12.6 (11.5-14.5) % Plt Count 537 H (130-400) K/uL MPV 9.3 L (9.4-12.4) fL Immature Gran % (Auto) 1.5 % Neut % (Auto) 85.5 % Lymph % (Auto) 5.1 % [place] % (Auto) 7.2 % Eos % (Auto) 0.3 % Baso % (Auto) 0.4 % Neut # (Auto) 12.45 H (1.40-6.50) K/uL Lymph # (Auto) 0.75 L (1.20-3.40) K/uL [place] # (Auto) 1.05 H (0.11-0.59) K/uL Eos # (Auto) 0.05 (0.00-0.50) K/uL Baso # (Auto) 0.06 (0.00-0.20) K/uL Immature Gran # (Auto) 0.22 H (0.01-0.20) K/uL PT Cancelled 11.7 INR Cancelled 1.1 Sodium 132 L (136-145) mmol/L Potassium 4.0 (3.5-5.1) mmol/L Chloride 99 (98-107) mmol/L Carbon Dioxide 24 (21-32) mmol/L Anion Gap 9 (3-11) BUN 22 (6-23) mg/dl Creatinine 0.88 (0.6-1.4) mg/dl Est Cr Clr Drug Dosing 68.7 ml/min Est GFR ( Amer) 96.0 ml/min Est GFR (Non-Af Amer) 82.9 ml/min BUN/Creatinine Ratio 25.0 H (10-20) Glucose 126 H (70-99(Fasting)) mg/dl Lactate 0.9 (0.4-2.0) mmol/L Calcium 9.3 (8.6-10.3) mg/dl Total Bilirubin 1.2 H (0.2-1.0) mg/dl AST 36 (13-39) U/L ALT 57 H (7-52) U/L Alkaline Phosphatase 79 (34-104) U/L Troponin I High Sens 4.6 (0-20) pg/ml Total Protein 7.5 (6.0-8.3) gm/dl Albumin 4.0 (3.4-5.0) gm/dl Globulin 3.5 (2.5-4.0) gm/dl Albumin/Globulin Ratio 1.1 (0.9-2) Lipase 13 (11-82) U/L Urine Color Dark Yellow Urine Appearance Cloudy A (Clear) Urine pH 5.5 (4.5-7.5) Ur Specific [place] 1.024 (1.000-1.030) Urine Protein 1+ H (Negative) Urine Glucose (UA) Negative (Negative) Urine Ketones Trace H (Negative) Urine Blood 3+ H (Negative) Urine Nitrite Negative (Negative) Urine Bilirubin Negative (Negative) Urine Urobilinogen Negative (Negative) Ur Leukocyte Esterase 1+ H (Negative) Urine WBC (Auto) 10-30 H (0-5) /hpf Urine RBC (Auto) >30 H (0-4) /hpf U Hyaline Cast (Auto) 0 (0-5) /lpf U Epithel Cells (Auto) 0-5 (0-5) /lpf Urine Bacteria (Auto) Negative (Negative) Urine Yeast Budding A (None Prsent) Administered Medications Discontinued Medications Fentanyl Citrate (Fentanyl Citrate Pf 100 Mcg/2 Ml Vial) 50 mcg IV NOW STA Stop: 12/05/23 23:18 Last Admin: 12/06/23 00:01 Dose: 50 mcg Documented By: MIKO Imaging Data Radiologist's Impression: Abdomen/Pelvis CT 12/05/23 23:17 Exam(s): CT ABDOMEN + PELVIS Without Contrast EXAM: CT Abdomen and Pelvis Without Intravenous Contrast CLINICAL HISTORY: Reason for exam: lower abdominal pain; hematuria. TECHNIQUE: Axial computed tomography images of the abdomen and pelvis without intravenous contrast. CTDI is 25.88 mGy and DLP is 1218.35 mGy-cm. Automated exposure control was utilized for the study. A dose lowering technique was utilized adhering to the principles of ALARA. COMPARISON: No relevant prior studies available. FINDINGS: Lung bases: Unremarkable. No mass. No consolidation. Heart: Previous CABG. ABDOMEN: Liver: Unremarkable. Gallbladder and bile ducts: Unremarkable. No calcified stones. No ductal dilation. Pancreas: Unremarkable. No ductal dilation. Spleen: Unremarkable. No splenomegaly. Adrenals: Unremarkable. No mass. Kidneys and ureters: Parapelvic cysts in the left kidney. No hydronephrosis or ureterolithiasis is seen. No follow-up is required. Stomach and bowel: There are scattered gas fluid levels throughout the colon. The right colon is mildly dilated measuring 7.8 cm consistent with ileus and/or enteritis. There is a relatively large amount of stool in the rectum measuring 6.7 cm suggesting constipation. There is diverticulosis of the lower left and sigmoid colon without evidence of acute diverticulitis per the appendix is normal. PELVIS: Appendix: See above. Bladder: The urinary bladder is only partially distended. There is a Rizvi catheter in place. No stones. Reproductive: Unremarkable as visualized. ABDOMEN and PELVIS: Intraperitoneal space: Unremarkable. No free air. No significant fluid collection. Bones/joints: Moderate multilevel degenerative change are seen throughout the spine. No acute fracture or subluxation is seen. There is a 7 cm hiatal hernia containing a portion of the stomach. Soft tissues: Unremarkable. Vasculature: The abdominal aorta is mildly calcified but nondilated. Lymph nodes: Unremarkable. No enlarged lymph nodes. IMPRESSION: There are scattered gas fluid levels throughout the colon. The right colon is mildly dilated measuring 7.8 cm consistent with ileus and/or enteritis. There is a relatively large amount of stool in the rectum measuring 6.7 cm suggesting constipation. There is diverticulosis of the lower left and sigmoid colon without evidence of acute diverticulitis per the appendix is normal. Electronically signed by: Daniel Tom MD 12/06/23 00:36 AM Discharge Plan Visit Data Chief Complaint: Abdominal Pain Stated Complaint: BLEEDING AROUND CATHETER, ABDOMINAL PAIN ED Provider: Donya Shah Discharge Problem: Abdominal pain, lower, Acute constipation, Hematuria Forms Stand Alone Forms: [facility] Prescriptions Prescriptions: No Action multivitamin Tablet 1 tab PO QAM atorvastatin 40 mg Tablet 40 mg PO QPM levothyroxine 75 mcg Tablet 75 mcg PO QAM tamsulosin 0.4 mg Capsule 0.4 mg PO QPM metoprolol tartrate 50 mg Tablet 50 mg PO BID bisacodyl [Dulcolax (bisacodyl)] 5 mg Tablet,Delayed Release (Dr/Ec) 5 mg PO QPM gabapentin 100 mg Capsule 100 mg PO BID albuterol sulfate 90 mcg/actuation Hfa Aerosol Inhaler 1 inh INHALATION QID PRN (Reason: SHORT OF BREATH) fluticasone propionate 50 mcg/actuation [place],Suspension 1 spray INTRANASAL BID cholecalciferol (vitamin D3) [Vitamin D3] 25 mcg (1,000 unit) Tablet 25 mcg PO QAM levocetirizine 5 mg Tablet 5 mg PO QAM naproxen sodium [Aleve] 220 mg Capsule 220 mg PO BID clopidogrel 75 mg Tablet 75 mg PO QAM pantoprazole 40 mg Tablet,Delayed Release (Dr/Ec) 40 mg PO QAM ezetimibe [Zetia] 10 mg Tablet 10 mg PO QPM Accrufer 30 mg Capsule 30 mg PO QAM oxycodone 5 mg Tablet 5 mg PO Q4H PRN (Reason: pain) Qty: 30 0RF cefadroxil 500 mg capsule 500 mg PO BID 10 Days Qty: 20 0RF aspirin 81 mg Tablet,Delayed Release (Dr/Ec) 81 mg PO BID 42 Days Qty: 84 0RF Referrals Referrals: Jessee Parekh, [facility] [Primary Care Provider] -
[2023-12-05 23:50] LABS: Basophils # (auto) 0.06 K/uL (0.00-0.20); Basophils % (auto) 0.4 %; Eosinophils # (auto) 0.05 K/uL (0.00-0.50); Eosinophils % (auto) 0.3 %; Hematocrit (blood only) 40.1 % (42.0-52.0); Hemoglobin 13.2 g/dl (14.0-18.0); Immature Granulocytes # (auto) 0.22 K/uL (0.01-0.20); Immature Granulocytes % (auto) 1.5 %; Lymphocytes # (auto) 0.75 K/uL (1.20-3.40); Lymphocytes % (auto) 5.1 %; Mean Corpuscular Hemoglobin 32.1 pg (25.0-34.0); Mean Corpuscular Hgb Conc 32.9 g/dL (32.0-36.0); Mean Corpuscular Volume 97.6 fL (80.0-100.0); Mean Platelet Volume 9.3 fL (9.4-12.4); Monocytes # (auto) 1.05 K/uL (0.11-0.59); Monocytes % (auto) 7.2 %; Neutrophils # (auto) 12.45 K/uL (1.40-6.50); Neutrophils % (auto) 85.5 %; Platelet Count 537 K/uL (130-400); RDW Coefficient of Variation 12.6 % (11.5-14.5); RDW Standard Deviation 44.8 fL (36.4-46.3); Red Blood Count 4.11 M/uL (4.70-6.10); White Blood Count 14.58 K/ul (4.8-10.8)
[2023-12-06] MEDS: fentaNYL citrate PF 100 MCG/2 ML VIAL IV STA ×2 (00:01→03:49)
[2023-12-06 00:05] LABS: Albumin Globulin Ratio 1.1 (0.9-2); Bilirubin,Total 1.2 mg/dl (0.2-1.0); Calcium 9.3 mg/dl (8.6-10.3); Creatinine Clr Calc Pharmacy 68.7 ml/min; Est GFR (Non-African American) 82.9 ml/min; Globulin 3.5 gm/dl (2.5-4.0); Total Protein 7.5 gm/dl (6.0-8.3)
[2023-12-06 00:13] LABS: Troponin I High Sensitivity 4.6 pg/ml (0-20)
--- NOTE | 2023-12-06 00:36 | CT Scan Report ---
Exam(s): CT ABDOMEN + PELVIS Without Contrast EXAM: CT Abdomen and Pelvis Without Intravenous Contrast CLINICAL HISTORY: Reason for exam: lower abdominal pain; hematuria. TECHNIQUE: Axial computed tomography images of the abdomen and pelvis without intravenous contrast. CTDI is 25.88 mGy and DLP is 1218.35 mGy-cm. Automated exposure control was utilized for the study. A dose lowering technique was utilized adhering to the principles of ALARA. COMPARISON: No relevant prior studies available. FINDINGS: Lung bases: Unremarkable. No mass. No consolidation. Heart: Previous CABG. ABDOMEN: Liver: Unremarkable. Gallbladder and bile ducts: Unremarkable. No calcified stones. No ductal dilation. Pancreas: Unremarkable. No ductal dilation. Spleen: Unremarkable. No splenomegaly. Adrenals: Unremarkable. No mass. Kidneys and ureters: Parapelvic cysts in the left kidney. No hydronephrosis or ureterolithiasis is seen. No follow-up is required. Stomach and bowel: There are scattered gas fluid levels throughout the colon. The right colon is mildly dilated measuring 7.8 cm consistent with ileus and/or enteritis. There is a relatively large amount of stool in the rectum measuring 6.7 cm suggesting constipation. There is diverticulosis of the lower left and sigmoid colon without evidence of acute diverticulitis per the appendix is normal. PELVIS: Appendix: See above. Bladder: The urinary bladder is only partially distended. There is a Ricks catheter in place. No stones. Reproductive: Unremarkable as visualized. ABDOMEN and PELVIS: Intraperitoneal space: Unremarkable. No free air. No significant fluid collection. Bones/joints: Moderate multilevel degenerative change are seen throughout the spine. No acute fracture or subluxation is seen. There is a 7 cm hiatal hernia containing a portion of the stomach. Soft tissues: Unremarkable. Vasculature: The abdominal aorta is mildly calcified but nondilated. Lymph nodes: Unremarkable. No enlarged lymph nodes. IMPRESSION: There are scattered gas fluid levels throughout the colon. The right colon is mildly dilated measuring 7.8 cm consistent with ileus and/or enteritis. There is a relatively large amount of stool in the rectum measuring 6.7 cm suggesting constipation. There is diverticulosis of the lower left and sigmoid colon without evidence of acute diverticulitis per the appendix is normal. Electronically signed by: Daniel Tom MD 12/06/23 00:36 AM
[2023-12-06 01:21] LABS: INR 1.1 (0.9-1.1); Prothrombin Time 11.7 Seconds (9.0-12.0)
[2023-12-06 01:37] LABS: Appearance Urine Cloudy (Clear); Bacteria Urine Automated Negative (Negative); Bilirubin Urine Negative (Negative); Blood Urine 3+ (Negative); Cast Urine Automated 0 /lpf (0-5); Color Urine Dark Yellow; Epithelial Cell Urine Auto 0-5 /lpf (0-5); Glucose Urine UA Negative (Negative); Ketones Urine Trace (Negative); Leukocyte Esterase Urine 1+ (Negative); Nitrite Urine Negative (Negative); Protein Urine 1+ (Negative); Specific Gravity Urine 1.024 (1.000-1.030); Urobilinogen Urine Negative (Negative); pH Urine 5.5 (4.5-7.5)
[2023-12-06 01:48] LABS: RBC Urine Automated >30 /hpf (0-4)
[2023-12-06] MEDS: fentaNYL citrate PF 100 MCG/2 ML VIAL ONE (03:49)
[2023-12-06] MEDS: SODIUM CHLORIDE 0.9% 1,000 ML IV ONE (03:50)
--- NOTE | 2023-12-06 04:52 | History & Physical Report ---
Date of Service December 06, 2023 Assessment & Plan (1) Abdominal pain: Plan: 78-year-old male with past med history significant for hyperlipidemia, hypothyroidism, chronic rhinitis, hypertension, CAD, s/p CABG, GERD, BPH who recently had right total knee replacement was having abdominal pain ,constipation and urinary retention. Patient states since surgery he was having poor oral intake and not drinking much water. He went to [place] emergency department earlier in the evening for poor oral intake and inability to void. Patient was s/p Ricks catheter and was discharged home. After going home he noticed some blood in the catheter bag and around the urethral meatus and worsening abdominal pain and came back to [facility]. In the [facility] ER he was given soapsuds enema and and then milk and molasses enema after that he had a good bowel movement. But still he did not feel Safe to go home so we are called for admission. Current resting comfortably . Currently no blood in the Ricks bag. Denies any chest pain or shortness of breath. Still has abdominal pain 5/10 in severity. No fevers. No cough. No headache. No runny nose or sore throat. Hemodynamics are okay. Abdominal pain CT scan shows possible colonic ileus versus enteritis Clear liquid diet Pain control Repeat KUB in a.m. GI consult Constipation s/p enema in ER with bowel movement Will monitor Urinary retention S/p Ricks On Flomax Follow-up with PCP and urology Possible UTI Will follow cultures Patient already on antibiotics post knee surgery Recent right total knee replacement Follow-up with orthopedics CAD s/p CABG On aspirin, Plavix, statin, Zetia and beta-fanny GERD On Protonix Hyperlipidemia On statin and Zetia Hypertension on metoprolol Hypothyroidism On Synthyroid DVT prophylaxis On aspirin 80 mg twice daily and Plavix Heparin subcu Disposition Medical floor Full code History of Present Illness Chief Complaint: Abdominal pain constipation and urinary retention Primary Care Provider: Jessee Parekh 78-year-old male with past med history significant for hyperlipidemia, hypothyroidism, chronic rhinitis, hypertension, CAD, s/p CABG, GERD, BPH who recently had right total knee replacement was having abdominal pain ,constipation and urinary retention. Patient states since surgery he was having poor oral intake and not drinking much water. He went to [place] emergency department earlier in the evening for poor oral intake and inability to void. Patient was s/p Ricks catheter and was discharged home. After going home he noticed some blood in the catheter bag and around the urethral meatus and worsening abdominal pain and came back to [facility]. In the [facility] ER he was given soapsuds enema and and then milk and molasses enema after that he had a good bowel movement. But still he did not feel Safe to go home so we are called for admission. Current resting comfortably . Currently no blood in the Ricks bag. Denies any chest pain or shortness of breath. Still has abdominal pain 5/10 in severity. No fevers. No cough. No headache. No runny nose or sore throat. Hemodynamics are okay. Past medical history. As mentioned above Past surgical history. CABG. Right total knee arthroplasty. EGD. Colonoscopy. Right inguinal hernia repair Social history. No smoking. No alcohol, no drug use. Family history. Father had stroke and arthritis. Mother had hypertension, arthritis, heart disease, diabetes, cancer. Allergies Allergy/AdvReac Type Severity Reaction Status Date / Time clarithromycin Allergy Mild Rash Verified 12/06/23 01:42 lisinopril AdvReac Mild Cough Verified 12/06/23 01:42 prednisone AdvReac Mild Gastrointestinal Verified 12/06/23 01:42 Upset Home Medications Medication Instructions Recorded Confirmed Type albuterol sulfate 90 mcg/actuation 1 inh inhalation QID PRN SHORT OF 10/07/21 12/06/23 History aerosol inhaler BREATH atorvastatin 40 mg tablet 40 mg PO QPM 10/07/21 12/06/23 History bisacodyl 5 mg tablet,delayed 5 mg PO QPM 10/07/21 12/06/23 History release (Dulcolax (bisacodyl)) cholecalciferol (vitamin D3) 25 25 mcg PO QAM 10/07/21 12/06/23 History mcg (1,000 unit) tablet (Vitamin D3) fluticasone propionate 50 1 spray intranasal BID 10/07/21 12/06/23 History mcg/actuation nasal spray,suspension gabapentin 100 mg capsule 100 mg PO BID 10/07/21 12/06/23 History levocetirizine 5 mg tablet 5 mg PO QAM 10/07/21 12/06/23 History levothyroxine 75 mcg tablet 75 mcg PO QAM 10/07/21 12/06/23 History metoprolol tartrate 50 mg tablet 50 mg PO BID 10/07/21 12/06/23 History multivitamin 1 tab PO QAM 10/07/21 12/06/23 History naproxen sodium 220 mg capsule 220 mg PO BID 10/07/21 12/06/23 History (Aleve) tamsulosin 0.4 mg capsule 0.4 mg PO QPM 10/07/21 12/06/23 History clopidogrel 75 mg tablet 75 mg PO QAM 10/29/23 12/06/23 History ezetimibe 10 mg tablet (Zetia) 10 mg PO QPM 10/29/23 12/06/23 History ferric maltol 30 mg capsule 30 mg PO QAM 10/29/23 12/06/23 History (Accrufer) pantoprazole 40 mg tablet,delayed 40 mg PO QAM 10/29/23 12/06/23 History release aspirin 81 mg tablet,delayed 81 mg PO BID 42 days #84 tabs 11/28/23 12/06/23 Rx release cefadroxil 500 mg capsule 500 mg PO BID 10 days #20 caps 11/28/23 12/06/23 Rx oxycodone 5 mg tablet 5 mg PO Q4H PRN pain #30 tabs 11/28/23 12/06/23 Rx Past Med/Surg History Medical History Contact dermatitis Sleep apnea on CPAP-compliant History of blood transfusion during CABG Coronary artery disease CABG x 5 (11/2021) Stent x1 (07/2022) Polio 195-pt denies residual complications BPH (benign prostatic hyperplasia) GERD (gastroesophageal reflux disease) controlled, stable per pt Hypothyroidism Migraine Hypertension controlled, stable per pt Hyperlipidemia Seasonal allergies Asthma controlled, stable per pt; last rescue inhaler use several weeks ago Surgical History Hx of inguinal hernia repair History of cardiac cath Stent x1 (07/2022) History of coronary artery bypass graft 11/2021, [facility] History of esophagogastroduodenoscopy (EGD) History of colonoscopy [place] teeth removed History of tonsillectomy Family History Mother Family history of diabetes mellitus Daughter Family history of diabetes mellitus Other No family history of adverse response to anesthesia Social History Smoking Status: Never smoker Second Hand Exposure: No; Do You Dip or Chew Tobacco: No; Tobacco Cessation Education Requested by Patient: No Hx Alcohol Use: No Hx Substance Use: No Preferred Language: Citizen Of [place] Communication Ability: Effective Domestic Technician Required: No Beliefs That Will Affect Care: None Current Living Situation: Alone Current Living Situation Comment: WITH DAUGHTER Other Information That Helps Us Care for You: No Feels Safe at Home: Yes Safety Concerns: Feels Safe At This Time Assistive Devices: Glasses and Walker Review of Systems Review of Systems: All systems reviewed & are unremarkable except as noted in HPI & below Physical Exam Physical Exam: General- Not in distress Head- atraumatic Eyes- PERRL. ENT- oropharynx clear Neck- supple, no JVD. Lungs- clear to auscultation no wheezing or crackles Heart- regular rhythm; no murmur, no gallop. Abdomen- sluggish bowel sounds, soft, nontender, no distension Extremities- no pretibial edema, s/p Right TKR site no drainage seen Neuro- alert, oriented PERRL, no facial palsy; no dysarthria Results & Data Results & Data Vital Signs (Past 12 Hours) Vital Signs Temp Pulse Pulse Resp BP BP Pulse Ox 12/06/23 04:06 91 H 18 154/94 H 92 12/06/23 03:00 94 H 12/06/23 01:26 85 18 139/82 94 12/05/23 23:30 91 H 18 90 12/05/23 23:30 94 H 20 133/92 90 12/05/23 23:30 36.7 C 91 H 18 133/92 90 12/05/23 23:20 94 H O2 Del Method O2 Flow Rate 12/06/23 04:06 Nasal Cannula 4 12/06/23 03:00 12/06/23 01:26 Room Air 12/05/23 23:30 Room Air 0 12/05/23 23:30 Room Air 12/05/23 23:30 Room Air 12/05/23 23:20 Diagnostic Findings Laboratory Results WBC 14.58 K/ul (4.8-10.8) H 12/05/23 23:20 RBC 4.11 M/uL (4.70-6.10) L 12/05/23 23:20 Hgb 13.2 g/dl (14.0-18.0) L 12/05/23 23:20 Hct 40.1 % (42.0-52.0) L 12/05/23 23:20 MCV 97.6 fL (80.0-100.0) 12/05/23 23:20 MCH 32.1 pg (25.0-34.0) 12/05/23 23:20 MCHC 32.9 g/dL (32.0-36.0) 12/05/23 23:20 RDW Std Deviation 44.8 fL (36.4-46.3) 12/05/23 23:20 RDW Coeff of Anne-Marie 12.6 % (11.5-14.5) 12/05/23 23:20 Plt Count 537 K/uL (130-400) H 12/05/23 23:20 MPV 9.3 fL (9.4-12.4) L 12/05/23 23:20 Immature Gran % (Auto) 1.5 % 12/05/23 23:20 Neut % (Auto) 85.5 % 12/05/23 23:20 Lymph % (Auto) 5.1 % 12/05/23 23:20 [place] % (Auto) 7.2 % 12/05/23 23:20 Eos % (Auto) 0.3 % 12/05/23 23:20 Baso % (Auto) 0.4 % 12/05/23 23:20 Neut # (Auto) 12.45 K/uL (1.40-6.50) H 12/05/23 23:20 Lymph # (Auto) 0.75 K/uL (1.20-3.40) L 12/05/23 23:20 [place] # (Auto) 1.05 K/uL (0.11-0.59) H 12/05/23 23:20 Eos # (Auto) 0.05 K/uL (0.00-0.50) 12/05/23 23:20 Baso # (Auto) 0.06 K/uL (0.00-0.20) 12/05/23 23:20 Immature Gran # (Auto) 0.22 K/uL (0.01-0.20) H 12/05/23 23:20 PT 11.7 Seconds (9.0-12.0) 12/06/23 00:28 INR 1.1 (0.9-1.1) 12/06/23 00:28 Sodium 132 mmol/L (136-145) L 12/05/23 23:20 Potassium 4.0 mmol/L (3.5-5.1) 12/05/23 23:20 Chloride 99 mmol/L (98-107) 12/05/23 23:20 Carbon Dioxide 24 mmol/L (21-32) 12/05/23 23:20 Anion Gap 9 (3-11) 12/05/23 23:20 BUN 22 mg/dl (6-23) 12/05/23 23:20 Creatinine 0.88 mg/dl (0.6-1.4) 12/05/23 23:20 Est Cr Clr Drug Dosing 68.7 ml/min 12/05/23 23:20 Est GFR ( Amer) 96.0 ml/min 12/05/23 23:20 Est GFR (Non-Af Amer) 82.9 ml/min 12/05/23 23:20 BUN/Creatinine Ratio 25.0 (10-20) H 12/05/23 23:20 Glucose 126 mg/dl (70-99(Fasting)) H 12/05/23 23:20 Lactate 0.9 mmol/L (0.4-2.0) 12/06/23 00:28 Calcium 9.3 mg/dl (8.6-10.3) 12/05/23 23:20 Total Bilirubin 1.2 mg/dl (0.2-1.0) H 12/05/23 23:20 AST 36 U/L (13-39) 12/05/23 23:20 ALT 57 U/L (7-52) H 12/05/23 23:20 Alkaline Phosphatase 79 U/L (34-104) 12/05/23 23:20 Troponin I High Sens 4.6 pg/ml (0-20) 12/05/23 23:20 Total Protein 7.5 gm/dl (6.0-8.3) 12/05/23 23:20 Albumin 4.0 gm/dl (3.4-5.0) 12/05/23 23:20 Globulin 3.5 gm/dl (2.5-4.0) 12/05/23 23:20 Albumin/Globulin Ratio 1.1 (0.9-2) 12/05/23 23:20 Lipase 13 U/L (11-82) 12/05/23 23:20 Urine Color Dark Yellow 12/06/23 00:13 Urine Appearance Cloudy (Clear) A 12/06/23 00:13 Urine pH 5.5 (4.5-7.5) 12/06/23 00:13 Ur Specific [place] 1.024 (1.000-1.030) 12/06/23 00:13 Urine Protein 1+ (Negative) H 12/06/23 00:13 Urine Glucose (UA) Negative (Negative) 12/06/23 00:13 Urine Ketones Trace (Negative) H 12/06/23 00:13 Urine Blood 3+ (Negative) H 12/06/23 00:13 Urine Nitrite Negative (Negative) 12/06/23 00:13 Urine Bilirubin Negative (Negative) 12/06/23 00:13 Urine Urobilinogen Negative (Negative) 12/06/23 00:13 Ur Leukocyte Esterase 1+ (Negative) H 12/06/23 00:13 Urine WBC (Auto) 10-30 /hpf (0-5) H 12/06/23 00:13 Urine RBC (Auto) >30 /hpf (0-4) H 12/06/23 00:13 U Hyaline Cast (Auto) 0 /lpf (0-5) 12/06/23 00:13 U Epithel Cells (Auto) 0-5 /lpf (0-5) 12/06/23 00:13 Urine Bacteria (Auto) Negative (Negative) 12/06/23 00:13 Urine Yeast Budding (None Prsent) A 12/06/23 00:13 Impressions Abdomen/Pelvis CT 12/05/23 23:17 Exam(s): CT ABDOMEN + PELVIS Without Contrast EXAM: CT Abdomen and Pelvis Without Intravenous Contrast CLINICAL HISTORY: Reason for exam: lower abdominal pain; hematuria. TECHNIQUE: Axial computed tomography images of the abdomen and pelvis without intravenous contrast. CTDI is 25.88 mGy and DLP is 1218.35 mGy-cm. Automated exposure control was utilized for the study. A dose lowering technique was utilized adhering to the principles of ALARA. COMPARISON: No relevant prior studies available. FINDINGS: Lung bases: Unremarkable. No mass. No consolidation. Heart: Previous CABG. ABDOMEN: Liver: Unremarkable. Gallbladder and bile ducts: Unremarkable. No calcified stones. No ductal dilation. Pancreas: Unremarkable. No ductal dilation. Spleen: Unremarkable. No splenomegaly. Adrenals: Unremarkable. No mass. Kidneys and ureters: Parapelvic cysts in the left kidney. No hydronephrosis or ureterolithiasis is seen. No follow-up is required. Stomach and bowel: There are scattered gas fluid levels throughout the colon. The right colon is mildly dilated measuring 7.8 cm consistent with ileus and/or enteritis. There is a relatively large amount of stool in the rectum measuring 6.7 cm suggesting constipation. There is diverticulosis of the lower left and sigmoid colon without evidence of acute diverticulitis per the appendix is normal. PELVIS: Appendix: See above. Bladder: The urinary bladder is only partially distended. There is a Ricks catheter in place. No stones. Reproductive: Unremarkable as visualized. ABDOMEN and PELVIS: Intraperitoneal space: Unremarkable. No free air. No significant fluid collection. Bones/joints: Moderate multilevel degenerative change are seen throughout the spine. No acute fracture or subluxation is seen. There is a 7 cm hiatal hernia containing a portion of the stomach. Soft tissues: Unremarkable. Vasculature: The abdominal aorta is mildly calcified but nondilated. Lymph nodes: Unremarkable. No enlarged lymph nodes. IMPRESSION: There are scattered gas fluid levels throughout the colon. The right colon is mildly dilated measuring 7.8 cm consistent with ileus and/or enteritis. There is a relatively large amount of stool in the rectum measuring 6.7 cm suggesting constipation. There is diverticulosis of the lower left and sigmoid colon without evidence of acute diverticulitis per the appendix is normal. Electronically signed by: Daniel Tom MD 12/06/23 00:36 AM ECG Additional Comments: ECG. Normal sinus rhythm at rate 92. Possible left atrial enlargement. Code Status & VTE Plan VTE Prophylaxis Plan VTE Prophylaxis will be ordered: Yes
[2023-12-06] MEDS ORDERED: MoRPHine SULFATE 4 MG/ML 1 ML CARP\\VIAL IV PRN (05:25)
[2023-12-06] MEDS ORDERED: ALBUTEROL HFA 8 GM INHALER INH PRN (05:25)
[2023-12-06] MEDS ORDERED: oxyCODONE HCL IR 5 MG TAB (IMMEDIATE RELEASE) PO PRN (05:25)
[2023-12-06] MEDS: LEVOTHYROXINE SODIUM 75 MCG TABLET PO SCH (06:16)
[2023-12-06 07:37] LABS: Hematocrit (blood only) 36.7 % (42.0-52.0); Hemoglobin 12.5 g/dl (14.0-18.0); Mean Corpuscular Hemoglobin 32.6 pg (25.0-34.0); Mean Corpuscular Hgb Conc 34.1 g/dL (32.0-36.0); Mean Corpuscular Volume 95.8 fL (80.0-100.0); Mean Platelet Volume 9.3 fL (9.4-12.4); Platelet Count 478 K/uL (130-400); RDW Coefficient of Variation 12.6 % (11.5-14.5); RDW Standard Deviation 44.1 fL (36.4-46.3); Red Blood Count 3.83 M/uL (4.70-6.10); White Blood Count 18.69 K/ul (4.8-10.8)
[2023-12-06 07:58] LABS: BUN Creatinine Ratio 30.9 (10-20); Calcium 8.5 mg/dl (8.6-10.3); Creatinine Clr Calc Pharmacy 91.5 ml/min; Est GFR (African American) 106.8 ml/min; Est GFR (Non-African American) 92.1 ml/min; Magnesium 2.5 mg/dl (1.7-2.4)
[2023-12-06 08:12] LABS: Basophils # (auto) 0.05 K/uL (0.00-0.20); Basophils % (auto) 0.3 %; Eosinophils # (auto) 0.02 K/uL (0.00-0.50); Eosinophils % (auto) 0.1 %; Immature Granulocytes # (auto) 0.19 K/uL (0.01-0.20); Lymphocytes # (auto) 0.55 K/uL (1.20-3.40); Lymphocytes % (auto) 2.9 %; Monocytes # (auto) 0.89 K/uL (0.11-0.59); Monocytes % (auto) 4.8 %; Neutrophils # (auto) 16.99 K/uL (1.40-6.50); Neutrophils % (auto) 90.9 %; RBC Morphology Unremarkable
--- NOTE | 2023-12-06 08:57 | XRay Report ---
KUB CLINICAL HISTORY: Colonic ileus. FINDINGS: 2 AP supine abdominal radiographs are correlated with abdominal CT dated 12/05/2023. Gaseous distention of the colon is similar to previous. There is no radiographic evidence of high-grade smal l bowel obstruction. No evidence of intraperitoneal free air is seen on these supine images. There ar e no abnormal abdominal calcifications. Phleboliths are noted in the pelvis. Midline sternotomy wires are partially imaged. The heart is enlarged. The skeletal structures are osteopenic and appear intac t. Moderate lumbosacral spondylosis is observed. IMPRESSION: Gaseous distention of the colon is similar in appearance to yesterday's CT scan. This may represent a colonic ileus as clinically suspected. Electronically signed by: Carlos Llanos M.D. 12/06/2023 8:55 AM
[2023-12-06] MEDS: MAGNESIUM HYDROXIDE SUSP 30 ML UDC PO SCH (09:13)
[2023-12-06] MEDS: HEPARIN SOD 5,000 UNIT/0.5 ML VIAL SQ SCH (09:37)
[2023-12-06] MEDS: MULTIVITAMIN TAB PO SCH (09:37)
[2023-12-06] MEDS: ASPIRIN 81 MG ECTAB PO SCH (09:37)
[2023-12-06] MEDS: PANTOprazole 40 MG TAB PO SCH (09:37)
[2023-12-06] MEDS: CLOPIDOGREL BISULFATE 75 MG TAB PO SCH (09:37)
[2023-12-06] MEDS: FLUTICASONE PROPIONATE NA SPR 16 GM BTL SCH (09:37)
[2023-12-06] MEDS: METOPROLOL TARTRATE 50 MG TAB PO SCH (09:38)
[2023-12-06] MEDS: CETIRIZINE HCL 10 MG TABLET PO SCH (09:38)
[2023-12-06] MEDS: CHOLECALCIFEROL 25 MCG (1000 UNITS) TAB PO SCH (09:38)
[2023-12-06] MEDS: GABAPENTIN 100 MG CAP PO SCH (09:38)
[2023-12-06] MEDS: cephALEXin 500 MG CAP PO SCH (09:38)
--- NOTE | 2023-12-06 09:46 | Gastrointestinal Consultation ---
Date of Consultation December 06, 2023 Assessment & Plan (1) Abdominal pain: Pleasant man with what seems to be a postop ileus related to decrease activity and pain medications. He is having spontaneous bowel movements now but not passing gas. KUB shows persistent gas distension of colon. He just needs to limit pain meds and increase ambulation as much as possible. Don't feel the need to intervene with decompressive colonoscopy and my experience with those has not been super positive. Sometimes having patient rotate onto his side in bed and even onto his stomach will help with passage of gas. History of Present Illness Reason for Consultation: ileus Attending Physician: Enmanuel Ruiz MD History of Present Illness 78 year old man admitted with abdominal pain and "ileus". He had knee surgery recently and was home recovering. He was ambulatory but not as active as before. He admittedly was not eating his regular diet. He says he missed a few days with bowel movements and developed lower abdominal pain. He had enemas yesterday and got relief with bowel movement. He has had two spontaneous bowel movements this morning but is not passing gas. He denies problems with bowel movements prior to his surgery. Last colonoscopy was four years ago. He was taking oxycodone three times daily when at home. Allergies Allergy/AdvReac Type Severity Reaction Status Date / Time clarithromycin Allergy Mild Rash Verified 12/06/23 01:42 lisinopril AdvReac Mild Cough Verified 12/06/23 01:42 prednisone AdvReac Mild Gastrointestinal Verified 12/06/23 01:42 Upset Home Medications Medication Instructions Recorded Confirmed Type albuterol sulfate 90 mcg/actuation 1 inh inhalation QID PRN SHORT OF 10/07/21 12/06/23 History aerosol inhaler BREATH atorvastatin 40 mg tablet 40 mg PO QPM 10/07/21 12/06/23 History bisacodyl 5 mg tablet,delayed 5 mg PO QPM 10/07/21 12/06/23 History release (Dulcolax (bisacodyl)) cholecalciferol (vitamin D3) 25 25 mcg PO QAM 10/07/21 12/06/23 History mcg (1,000 unit) tablet (Vitamin D3) fluticasone propionate 50 1 spray intranasal BID 10/07/21 12/06/23 History mcg/actuation nasal spray,suspension gabapentin 100 mg capsule 100 mg PO BID 10/07/21 12/06/23 History levocetirizine 5 mg tablet 5 mg PO QAM 10/07/21 12/06/23 History levothyroxine 75 mcg tablet 75 mcg PO QAM 10/07/21 12/06/23 History metoprolol tartrate 50 mg tablet 50 mg PO BID 10/07/21 12/06/23 History multivitamin 1 tab PO QAM 10/07/21 12/06/23 History naproxen sodium 220 mg capsule 220 mg PO BID 10/07/21 12/06/23 History (Aleve) tamsulosin 0.4 mg capsule 0.4 mg PO QPM 10/07/21 12/06/23 History clopidogrel 75 mg tablet 75 mg PO QAM 10/29/23 12/06/23 History ezetimibe 10 mg tablet (Zetia) 10 mg PO QPM 10/29/23 12/06/23 History ferric maltol 30 mg capsule 30 mg PO QAM 10/29/23 12/06/23 History (Accrufer) pantoprazole 40 mg tablet,delayed 40 mg PO QAM 10/29/23 12/06/23 History release aspirin 81 mg tablet,delayed 81 mg PO BID 42 days #84 tabs 11/28/23 12/06/23 Rx release cefadroxil 500 mg capsule 500 mg PO BID 10 days #20 caps 11/28/23 12/06/23 Rx oxycodone 5 mg tablet 5 mg PO Q4H PRN pain #30 tabs 11/28/23 12/06/23 Rx Patient History Medical History Contact dermatitis Sleep apnea on CPAP-compliant History of blood transfusion during CABG Coronary artery disease CABG x 5 (11/2021) Stent x1 (07/2022) Polio 195-pt denies residual complications BPH (benign prostatic hyperplasia) GERD (gastroesophageal reflux disease) controlled, stable per pt Hypothyroidism Migraine Hypertension controlled, stable per pt Hyperlipidemia Seasonal allergies Asthma controlled, stable per pt; last rescue inhaler use several weeks ago Surgical History Hx of inguinal hernia repair History of cardiac cath Stent x1 (07/2022) History of coronary artery bypass graft 11/2021, [facility] History of esophagogastroduodenoscopy (EGD) History of colonoscopy [place] teeth removed History of tonsillectomy Family History Mother Family history of diabetes mellitus Daughter Family history of diabetes mellitus Other No family history of adverse response to anesthesia Social History Smoking Status: Never smoker Second Hand Exposure: No; Do You Dip or Chew Tobacco: No; Tobacco Cessation Education Requested by Patient: No Hx Alcohol Use: No Hx Substance Use: No Preferred Language: Japanese Communication Ability: Effective Tongue And Groove Machine Feeder Required: No Beliefs That Will Affect Care: None Current Living Situation: Alone Current Living Situation Comment: WITH DAUGHTER Other Information That Helps Us Care for You: No Feels Safe at Home: Yes Safety Concerns: Feels Safe At This Time Assistive Devices: Glasses and Walker Review of Systems Review of Systems: All systems reviewed & are unremarkable except as noted in HPI & below Physical Exam Constitutional: WD/WN, vitals as above Neck: trachea midline, no thyromegaly Respiratory: normal respiratory effort, lungs clear to auscultation Cardiovascular: RRR, no murmur, no edema Gastrointestinal (Abdomen): Inspection/Auscultation: abdomen normal to inspection and + abdomen distended Percussion/Palpation: abdomen nontender and no hepatosplenomegaly Results & Data Vital Signs (Past 12 Hours) Vital Signs Temp Pulse Pulse Pulse Resp BP BP 12/06/23 07:40 37.4 C 90 16 130/76 12/06/23 05:39 12/06/23 05:37 37 C 95 H 18 151/87 H 12/06/23 05:02 87 18 150/80 H 12/06/23 04:06 91 H 18 154/94 H 12/06/23 03:00 94 H 12/06/23 01:26 85 18 139/82 12/05/23 23:30 91 H 18 12/05/23 23:30 94 H 20 133/92 12/05/23 23:30 36.7 C 91 H 18 133/92 12/05/23 23:20 94 H Pulse Ox O2 Del Method O2 Flow Rate 12/06/23 07:40 91 Nasal Cannula 1 12/06/23 05:39 Nasal Cannula 2 12/06/23 05:37 94 Nasal Cannula 2 12/06/23 05:02 96 Nasal Cannula 4 12/06/23 04:06 92 Nasal Cannula 4 12/06/23 03:00 12/06/23 01:26 94 Room Air 12/05/23 23:30 90 Room Air 0 12/05/23 23:30 90 Room Air 12/05/23 23:30 90 Room Air 12/05/23 23:20 Laboratory Results 12/06/23 12/06/23 12/06/23 Range/Units 07:16 00:28 00:13 WBC 18.69 H (4.8-10.8) K/ul RBC 3.83 L (4.70-6.10) M/uL Hgb 12.5 L (14.0-18.0) g/dl Hct 36.7 L (42.0-52.0) % MCV 95.8 (80.0-100.0) fL MCH 32.6 (25.0-34.0) pg MCHC 34.1 (32.0-36.0) g/dL RDW Std Deviation 44.1 (36.4-46.3) fL RDW Coeff of Anne-Marie 12.6 (11.5-14.5) % Plt Count 478 H (130-400) K/uL MPV 9.3 L (9.4-12.4) fL Immature Gran % (Auto) 1.0 % Neut % (Auto) 90.9 % Lymph % (Auto) 2.9 % [place] % (Auto) 4.8 % Eos % (Auto) 0.1 % Baso % (Auto) 0.3 % Neut # (Auto) 16.99 H (1.40-6.50) K/uL Lymph # (Auto) 0.55 L (1.20-3.40) K/uL [place] # (Auto) 0.89 H (0.11-0.59) K/uL Eos # (Auto) 0.02 (0.00-0.50) K/uL Baso # (Auto) 0.05 (0.00-0.20) K/uL Immature Gran # (Auto) 0.19 (0.01-0.20) K/uL RBC Morphology Unremarkable PT 11.7 INR 1.1 Sodium 135 L (136-145) mmol/L Potassium 4.0 (3.5-5.1) mmol/L Chloride 104 (98-107) mmol/L Carbon Dioxide 22 (21-32) mmol/L Anion Gap 9 (3-11) BUN 21 (6-23) mg/dl Creatinine 0.68 (0.6-1.4) mg/dl Est Cr Clr Drug Dosing 91.5 ml/min Est GFR ( Amer) 106.8 ml/min Est GFR (Non-Af Amer) 92.1 ml/min BUN/Creatinine Ratio 30.9 H (10-20) Glucose 110 H (70-99(Fasting)) mg/dl Lactate 0.9 (0.4-2.0) mmol/L Calcium 8.5 L (8.6-10.3) mg/dl Magnesium 2.5 H (1.7-2.4) mg/dl Total Bilirubin (0.2-1.0) mg/dl AST (13-39) U/L ALT (7-52) U/L Alkaline Phosphatase (34-104) U/L Troponin I High Sens (0-20) pg/ml Total Protein (6.0-8.3) gm/dl Albumin (3.4-5.0) gm/dl Globulin (2.5-4.0) gm/dl Albumin/Globulin Ratio (0.9-2) Lipase (11-82) U/L Urine Color Dark Yellow Urine Appearance Cloudy A (Clear) Urine pH 5.5 (4.5-7.5) Ur Specific [place] 1.024 (1.000-1.030) Urine Protein 1+ H (Negative) Urine Glucose (UA) Negative (Negative) Urine Ketones Trace H (Negative) Urine Blood 3+ H (Negative) Urine Nitrite Negative (Negative) Urine Bilirubin Negative (Negative) Urine Urobilinogen Negative (Negative) Ur Leukocyte Esterase 1+ H (Negative) Urine WBC (Auto) 10-30 H (0-5) /hpf Urine RBC (Auto) >30 H (0-4) /hpf U Hyaline Cast (Auto) 0 (0-5) /lpf U Epithel Cells (Auto) 0-5 (0-5) /lpf Urine Bacteria (Auto) Negative (Negative) Urine Yeast Budding A (None Prsent) 12/05/23 Range/Units 23:20 WBC 14.58 H (4.8-10.8) K/ul RBC 4.11 L (4.70-6.10) M/uL Hgb 13.2 L (14.0-18.0) g/dl Hct 40.1 L (42.0-52.0) % MCV 97.6 (80.0-100.0) fL MCH 32.1 (25.0-34.0) pg MCHC 32.9 (32.0-36.0) g/dL RDW Std Deviation 44.8 (36.4-46.3) fL RDW Coeff of Anne-Marie 12.6 (11.5-14.5) % Plt Count 537 H (130-400) K/uL MPV 9.3 L (9.4-12.4) fL Immature Gran % (Auto) 1.5 % Neut % (Auto) 85.5 % Lymph % (Auto) 5.1 % [place] % (Auto) 7.2 % Eos % (Auto) 0.3 % Baso % (Auto) 0.4 % Neut # (Auto) 12.45 H (1.40-6.50) K/uL Lymph # (Auto) 0.75 L (1.20-3.40) K/uL [place] # (Auto) 1.05 H (0.11-0.59) K/uL Eos # (Auto) 0.05 (0.00-0.50) K/uL Baso # (Auto) 0.06 (0.00-0.20) K/uL Immature Gran # (Auto) 0.22 H (0.01-0.20) K/uL RBC Morphology PT Cancelled INR Cancelled Sodium 132 L (136-145) mmol/L Potassium 4.0 (3.5-5.1) mmol/L Chloride 99 (98-107) mmol/L Carbon Dioxide 24 (21-32) mmol/L Anion Gap 9 (3-11) BUN 22 (6-23) mg/dl Creatinine 0.88 (0.6-1.4) mg/dl Est Cr Clr Drug Dosing 68.7 ml/min Est GFR ( Amer) 96.0 ml/min Est GFR (Non-Af Amer) 82.9 ml/min BUN/Creatinine Ratio 25.0 H (10-20) Glucose 126 H (70-99(Fasting)) mg/dl Lactate (0.4-2.0) mmol/L Calcium 9.3 (8.6-10.3) mg/dl Magnesium (1.7-2.4) mg/dl Total Bilirubin 1.2 H (0.2-1.0) mg/dl AST 36 (13-39) U/L ALT 57 H (7-52) U/L Alkaline Phosphatase 79 (34-104) U/L Troponin I High Sens 4.6 (0-20) pg/ml Total Protein 7.5 (6.0-8.3) gm/dl Albumin 4.0 (3.4-5.0) gm/dl Globulin 3.5 (2.5-4.0) gm/dl Albumin/Globulin Ratio 1.1 (0.9-2) Lipase 13 (11-82) U/L Urine Color Urine Appearance (Clear) Urine pH (4.5-7.5) Ur Specific [place] (1.000-1.030) Urine Protein (Negative) Urine Glucose (UA) (Negative) Urine Ketones (Negative) Urine Blood (Negative) Urine Nitrite (Negative) Urine Bilirubin (Negative) Urine Urobilinogen (Negative) Ur Leukocyte Esterase (Negative) Urine WBC (Auto) (0-5) /hpf Urine RBC (Auto) (0-4) /hpf U Hyaline Cast (Auto) (0-5) /lpf U Epithel Cells (Auto) (0-5) /lpf Urine Bacteria (Auto) (Negative) Urine Yeast (None Prsent) Diagnostic Findings Abdomen/Pelvis CT 12/05/23 23:17 Exam(s): CT ABDOMEN + PELVIS Without Contrast EXAM: CT Abdomen and Pelvis Without Intravenous Contrast CLINICAL HISTORY: Reason for exam: lower abdominal pain; hematuria. TECHNIQUE: Axial computed tomography images of the abdomen and pelvis without intravenous contrast. CTDI is 25.88 mGy and DLP is 1218.35 mGy-cm. Automated exposure control was utilized for the study. A dose lowering technique was utilized adhering to the principles of ALARA. COMPARISON: No relevant prior studies available. FINDINGS: Lung bases: Unremarkable. No mass. No consolidation. Heart: Previous CABG. ABDOMEN: Liver: Unremarkable. Gallbladder and bile ducts: Unremarkable. No calcified stones. No ductal dilation. Pancreas: Unremarkable. No ductal dilation. Spleen: Unremarkable. No splenomegaly. Adrenals: Unremarkable. No mass. Kidneys and ureters: Parapelvic cysts in the left kidney. No hydronephrosis or ureterolithiasis is seen. No follow-up is required. Stomach and bowel: There are scattered gas fluid levels throughout the colon. The right colon is mildly dilated measuring 7.8 cm consistent with ileus and/or enteritis. There is a relatively large amount of stool in the rectum measuring 6.7 cm suggesting constipation. There is diverticulosis of the lower left and sigmoid colon without evidence of acute diverticulitis per the appendix is normal. PELVIS: Appendix: See above. Bladder: The urinary bladder is only partially distended. There is a Ricks catheter in place. No stones. Reproductive: Unremarkable as visualized. ABDOMEN and PELVIS: Intraperitoneal space: Unremarkable. No free air. No significant fluid collection. Bones/joints: Moderate multilevel degenerative change are seen throughout the spine. No acute fracture or subluxation is seen. There is a 7 cm hiatal hernia containing a portion of the stomach. Soft tissues: Unremarkable. Vasculature: The abdominal aorta is mildly calcified but nondilated. Lymph nodes: Unremarkable. No enlarged lymph nodes. IMPRESSION: There are scattered gas fluid levels throughout the colon. The right colon is mildly dilated measuring 7.8 cm consistent with ileus and/or enteritis. There is a relatively large amount of stool in the rectum measuring 6.7 cm suggesting constipation. There is diverticulosis of the lower left and sigmoid colon without evidence of acute diverticulitis per the appendix is normal. Electronically signed by: Daniel Tom MD 12/06/23 00:36 AM KUB X-Ray 12/06/23 09:00 KUB CLINICAL HISTORY: Colonic ileus. FINDINGS: 2 AP supine abdominal radiographs are correlated with abdominal CT dated 12/05/2023. Gaseous distention of the colon is similar to previous. There is no radiographic evidence of high-grade small bowel obstruction. No evidence of intraperitoneal free air is seen on these supine images. There are no abnormal abdominal calcifications. Phleboliths are noted in the pelvis. Midline sternotomy wires are partially imaged. The heart is enlarged. The skeletal structures are osteopenic and appear intact. Moderate lumbosacral spondylosis is observed. IMPRESSION: Gaseous distention of the colon is similar in appearance to yesterday's CT scan. This may represent a colonic ileus as clinically suspected. Electronically signed by: Carlos Llanos M.D. 12/06/2023 8:55 AM
--- NOTE | 2023-12-06 11:46 | Hospitalist Progress Note ---
Date of Service December 06, 2023 Assessment & Plan (1) Abdominal pain: Plan: 78-year-old male with past med history significant for hyperlipidemia, hypothyroidism, chronic rhinitis, hypertension, CAD, s/p CABG, GERD, BPH who recently had right total knee replacement presented to the ED with abdominal pain, constipation and urinary retention. Underwent knee replacement surgery on 11/26; discharged home on 11/27. Was seen in OSH ER prior to admission; Ricks catheter was placed for urinary retention and discharged home. Abdominal pain Colonic ileus Constipation Recently underwent knee replacement surgery on 11/27. Postoperatively; reports abdominal pain, constipation. Was also on opioids with oxycodone CT abdomen and pelvis personally reviewed; scattered gas fluid levels throughout the colon. Colon mildly dilated consistent with ileus. Large amount of stool in rectum. Repeat KUB shows the similar finding Having regular bowel movements; started on stool softener Brooke Milk of magnesia every 6 hours For liquid diet, advance as tolerated GI consulted; do not feel need of intervene with decompressive colonoscopy at the moment. Acute urinary retention S/p Ricks Likely due to constipation, ileus Continue Ricks for the time being On Flomax Possible trial of void prior to discharge. Possible UTI Urine culture pending Patient already on antibiotics post knee surgery Recent right total knee replacement Follow-up with orthopedics CAD s/p CABG On aspirin, Plavix, statin, Zetia and beta-fanny GERD On Protonix Hyperlipidemia On statin and Zetia Hypertension on metoprolol Hypothyroidism On Synthyroid DVT prophylaxis On aspirin 81 mg twice daily and Plavix Heparin subcu Disposition Medical floor Full code Please note the above document was generated using voice recognition software. It may contain grammatical, syntax or spelling errors. Any formal questions or concerns about the content, text or information contained within the body of this dictation should be directly addressed to the provider for clarification Admission and Anticipated Discharge Date Admission Date: December 06, 2023 Subjective Patient seen and examined at bedside. He reports having 2 bowel movements today. Denies abdominal pain or discomfort. Review of Systems Review of Systems: All systems reviewed & are unremarkable except as noted in Subjective Physical Exam Physical Exam: Constitutional: WD/WN, vitals as above, NAD, sitting up in bed, pleasant, conversing easily Respiratory: normal respiratory effort, lungs clear to auscultation, no wheeze, rales, rhonchi. Normal insp/exp effort, no accessory muscle use Cardiovascular: RRR, no murmur, no edema Vessels: no JVD or carotid bruit Chest: normal inspection of chest Abdomen: Soft, nontender. Bowel sound present Musculoskeletal: no cyanosis or clubbing, extremities motor strength 5/5 Skin: no rashes, warm and dry normal turgor Neurologic: PERRL, EOMI, accommodation nl, no face palsy, no dysarthria CN's II- XI intact bilaterally and moves all extremities Psychiatric: A+Ox3, euthymic affect Results & Data Results & Data Vital Signs (Past 12 Hours) Vital Signs Temp Pulse Pulse Pulse Resp BP BP 12/06/23 07:40 37.4 C 90 16 130/76 12/06/23 05:39 12/06/23 05:37 37 C 95 H 18 151/87 H 12/06/23 05:02 87 18 150/80 H 12/06/23 04:06 91 H 18 154/94 H 12/06/23 03:00 94 H 12/06/23 01:26 85 18 139/82 Pulse Ox O2 Del Method O2 Flow Rate 12/06/23 07:40 91 Nasal Cannula 1 12/06/23 05:39 Nasal Cannula 2 12/06/23 05:37 94 Nasal Cannula 2 12/06/23 05:02 96 Nasal Cannula 4 12/06/23 04:06 92 Nasal Cannula 4 12/06/23 03:00 12/06/23 01:26 94 Room Air
[2023-12-06] MEDS: bisacodyL 5 MG TABEC PO SCH (18:56)
[2023-12-06] MEDS: EZETIMIBE 10 MG TAB PO SCH (19:57)
[2023-12-06] MEDS: TAMSULOSIN HCL 0.4 MG CAP PO SCH (19:57)
[2023-12-06] MEDS: ATORVASTATIN 40 MG TAB PO SCH (19:57)
[2023-12-06] MEDS: CALAMINE/PRAMOXINE LOTION 180 APPLN/180 ML BTL EXT SCH (19:58)
[2023-12-07] MEDS: ACETAMINOPHEN 325 MG TAB PO PRN (05:49)
[2023-12-07 07:13] LABS: Basophils # (auto) 0.07 K/uL (0.00-0.20); Basophils % (auto) 0.8 %; Eosinophils # (auto) 0.26 K/uL (0.00-0.50); Eosinophils % (auto) 2.8 %; Hematocrit (blood only) 37.5 % (42.0-52.0); Hemoglobin 11.9 g/dl (14.0-18.0); Immature Granulocytes # (auto) 0.12 K/uL (0.01-0.20); Immature Granulocytes % (auto) 1.3 %; Lymphocytes # (auto) 1.13 K/uL (1.20-3.40); Lymphocytes % (auto) 12.3 %; Mean Corpuscular Hemoglobin 31.5 pg (25.0-34.0); Mean Corpuscular Hgb Conc 31.7 g/dL (32.0-36.0); Mean Corpuscular Volume 99.2 fL (80.0-100.0); Mean Platelet Volume 9.1 fL (9.4-12.4); Monocytes # (auto) 0.84 K/uL (0.11-0.59); Monocytes % (auto) 9.2 %; Neutrophils # (auto) 6.74 K/uL (1.40-6.50); Neutrophils % (auto) 73.6 %; Platelet Count 532 K/uL (130-400); RDW Coefficient of Variation 12.7 % (11.5-14.5); RDW Standard Deviation 45.8 fL (36.4-46.3); Red Blood Count 3.78 M/uL (4.70-6.10); White Blood Count 9.16 K/ul (4.8-10.8)
[2023-12-07 07:30] LABS: Calcium 8.8 mg/dl (8.6-10.3); Potassium 3.8 mmol/L (3.5-5.1)
[2023-12-07 07:36] LABS: BUN Creatinine Ratio 23.8 (10-20); Est GFR (African American) 97.9 ml/min; Est GFR (Non-African American) 84.5 ml/min
--- NOTE | 2023-12-07 13:21 | Discharge Summary ---
Discharge Summary Date of Service December 07, 2023 Notes For Next Care Provider Pt hospitalized for post op ileus, constipation and acute urinary retention. Ricks removed on day of discharge and pt able to spontaneously void. He is being discharged on bowel regimen. Medication Changes From Visit For your Constipation: Please take MiraLAX 17 g once daily. Please take 30 mL of milk of magnesia once daily. If your bowels become too loose or too frequent you may need to adjust this regimen or discontinue. Please complete the remainder of the antibiotic course, Cefadroxil, that you were prescribed by your orthopedic surgeon. Please continue all other medications as prescribed. Admission HPI Per Admitting Provider 78-year-old male with past med history significant for hyperlipidemia, hypothyroidism, chronic rhinitis, hypertension, CAD, s/p CABG, GERD, BPH who recently had right total knee replacement was having abdominal pain ,constipation and urinary retention. Patient states since surgery he was having poor oral intake and not drinking much water. He went to [place] emergency department earlier in the evening for poor oral intake and inability to void. Patient was s/p Ricks catheter and was discharged home. After going home he noticed some blood in the catheter bag and around the urethral meatus and worsening abdominal pain and came back to [facility]. In the [facility] ER he was given soapsuds enema and and then milk and molasses enema after that he had a good bowel movement. But still he did not feel Safe to go home so we are called for admission. Current resting comfortably . Currently no blood in the Ricks bag. Denies any chest pain or shortness of breath. Still has abdominal pain 5/10 in severity. No fevers. No cough. No headache. No runny nose or sore throat. Hemodynamics are okay. Past medical history. As mentioned above Past surgical history. CABG. Right total knee arthroplasty. EGD. Colonoscopy. Right inguinal hernia repair Social history. No smoking. No alcohol, no drug use. Family history. Father had stroke and arthritis. Mother had hypertension, arthritis, heart disease, diabetes, cancer. Admission Exam Per Admitting Provider General- Not in distress Head- atraumatic Eyes- PERRL. ENT- oropharynx clear Neck- supple, no JVD. Lungs- clear to auscultation no wheezing or crackles Heart- regular rhythm; no murmur, no gallop. Abdomen- sluggish bowel sounds, soft, nontender, no distension Extremities- no pretibial edema, s/p Right TKR site no drainage seen Neuro- alert, oriented PERRL, no facial palsy; no dysarthria Principal Dx & Hospital Course #1 = Principal Diagnosis (1) Abdominal pain: 78-year-old male with past med history significant for hyperlipidemia, hypothyroidism, chronic rhinitis, hypertension, CAD, s/p CABG, GERD, BPH who recently had right total knee replacement presented to the ED with abdominal pain, constipation and urinary retention. Underwent knee replacement surgery on 11/26; discharged home on 11/27. Was seen in OSH ER prior to admission; Ricks catheter was placed for urinary retention and discharged home. Abdominal pain Colonic ileus Constipation Recently underwent knee replacement surgery on 11/27. Postoperatively; reports abdominal pain, constipation. Was also on opioids with oxycodone CT abdomen and pelvis personally reviewed; scattered gas fluid levels throughout the colon. Colon mildly dilated consistent with ileus. Large amount of stool in rectum. Repeat KUB shows the similar finding Having regular bowel movements Tolerating diet will discharge home on milk of mag and miralax daily Acute urinary retention S/p Ricks Likely due to constipation, ileus Continue Ricks for the time being On Flomax Possible trial of void prior to discharge. 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 Lung: Clear to Auscultation bilaterally, no wheezes/rales/rhonchi Heart: Regular rate, regular rhythm, no murmurs, rubs, or gallops Abdomen: Distended abdomen, soft, nontender, positive bowel sound Extremities: R TKR sidney intact, no erythema + RLE edema Skin: Warm, no rash, negative turgor. Updated Medication List Medication Instructions Recorded Confirmed Type albuterol sulfate 90 mcg/actuation 1 inh inhalation QID PRN SHORT OF 10/07/21 12/06/23 History aerosol inhaler BREATH atorvastatin 40 mg tablet 40 mg PO QPM 10/07/21 12/06/23 History bisacodyl 5 mg tablet,delayed 5 mg PO QPM 10/07/21 12/06/23 History release (Dulcolax (bisacodyl)) cholecalciferol (vitamin D3) 25 25 mcg PO QAM 10/07/21 12/06/23 History mcg (1,000 unit) tablet (Vitamin D3) fluticasone propionate 50 1 spray intranasal BID 10/07/21 12/06/23 History mcg/actuation nasal spray,suspension gabapentin 100 mg capsule 100 mg PO BID 10/07/21 12/06/23 History levocetirizine 5 mg tablet 5 mg PO QAM 10/07/21 12/06/23 History levothyroxine 75 mcg tablet 75 mcg PO QAM 10/07/21 12/06/23 History metoprolol tartrate 50 mg tablet 50 mg PO BID 10/07/21 12/06/23 History multivitamin 1 tab PO QAM 10/07/21 12/06/23 History naproxen sodium 220 mg capsule 220 mg PO BID 10/07/21 12/06/23 History (Aleve) tamsulosin 0.4 mg capsule 0.4 mg PO QPM 10/07/21 12/06/23 History clopidogrel 75 mg tablet 75 mg PO QAM 10/29/23 12/06/23 History ezetimibe 10 mg tablet (Zetia) 10 mg PO QPM 10/29/23 12/06/23 History ferric maltol 30 mg capsule 30 mg PO QAM 10/29/23 12/06/23 History (Accrufer) pantoprazole 40 mg tablet,delayed 40 mg PO QAM 10/29/23 12/06/23 History release aspirin 81 mg tablet,delayed 81 mg PO BID 42 days #84 tabs 11/28/23 12/06/23 Rx release cefadroxil 500 mg capsule 500 mg PO BID 10 days #20 caps 11/28/23 12/06/23 Rx oxycodone 5 mg tablet 5 mg PO Q4H PRN pain #30 tabs 03/23/24 03/31/24 Rx magnesium hydroxide 400 mg/5 mL 30 ml PO DAILY #355 mL 12/07/23 Rx oral suspension (Milk of Magnesia) polyethylene glycol 3350 17 17 g PO DAILY #119 grams 12/07/23 Rx gram/dose oral powder (Miralax) Hospital Stay Data Consultations 12/06/23 03:20 ED Decision to Admit Stat 12/06/23 08:00 Consult Gastroenterology Routine Diagnostic Imagining Performed Abdomen/Pelvis CT 12/05/23 23:17 Exam(s): CT ABDOMEN + PELVIS Without Contrast EXAM: CT Abdomen and Pelvis Without Intravenous Contrast CLINICAL HISTORY: Reason for exam: lower abdominal pain; hematuria. TECHNIQUE: Axial computed tomography images of the abdomen and pelvis without intravenous contrast. CTDI is 25.88 mGy and DLP is 1218.35 mGy-cm. Automated exposure control was utilized for the study. A dose lowering technique was utilized adhering to the principles of ALARA. COMPARISON: No relevant prior studies available. FINDINGS: Lung bases: Unremarkable. No mass. No consolidation. Heart: Previous CABG. ABDOMEN: Liver: Unremarkable. Gallbladder and bile ducts: Unremarkable. No calcified stones. No ductal dilation. Pancreas: Unremarkable. No ductal dilation. Spleen: Unremarkable. No splenomegaly. Adrenals: Unremarkable. No mass. Kidneys and ureters: Parapelvic cysts in the left kidney. No hydronephrosis or ureterolithiasis is seen. No follow-up is required. Stomach and bowel: There are scattered gas fluid levels throughout the colon. The right colon is mildly dilated measuring 7.8 cm consistent with ileus and/or enteritis. There is a relatively large amount of stool in the rectum measuring 6.7 cm suggesting constipation. There is diverticulosis of the lower left and sigmoid colon without evidence of acute diverticulitis per the appendix is normal. PELVIS: Appendix: See above. Bladder: The urinary bladder is only partially distended. There is a Ricks catheter in place. No stones. Reproductive: Unremarkable as visualized. ABDOMEN and PELVIS: Intraperitoneal space: Unremarkable. No free air. No significant fluid collection. Bones/joints: Moderate multilevel degenerative change are seen throughout the spine. No acute fracture or subluxation is seen. There is a 7 cm hiatal hernia containing a portion of the stomach. Soft tissues: Unremarkable. Vasculature: The abdominal aorta is mildly calcified but nondilated. Lymph nodes: Unremarkable. No enlarged lymph nodes. IMPRESSION: There are scattered gas fluid levels throughout the colon. The right colon is mildly dilated measuring 7.8 cm consistent with ileus and/or enteritis. There is a relatively large amount of stool in the rectum measuring 6.7 cm suggesting constipation. There is diverticulosis of the lower left and sigmoid colon without evidence of acute diverticulitis per the appendix is normal. Electronically signed by: Daniel Tom MD 12/06/23 00:36 AM KUB X-Ray 12/06/23 09:00 KUB CLINICAL HISTORY: Colonic ileus. FINDINGS: 2 AP supine abdominal radiographs are correlated with abdominal CT dated 12/05/2023. Gaseous distention of the colon is similar to previous. There is no radiographic evidence of high-grade small bowel obstruction. No evidence of intraperitoneal free air is seen on these supine images. There are no abnormal abdominal calcifications. Phleboliths are noted in the pelvis. Midline sternotomy wires are partially imaged. The heart is enlarged. The skeletal structures are osteopenic and appear intact. Moderate lumbosacral spondylosis is observed. IMPRESSION: Gaseous distention of the colon is similar in appearance to yesterday's CT scan. This may represent a colonic ileus as clinically suspected. Electronically signed by: Carlos Llanos M.D. 12/06/2023 8:55 AM Pending Results Patient Have Any Pending Studies at Discharge: No Discharge Instructions Given to Patient (Per Discharging Provider) MEDICATION CHANGES: For your Constipation: Please take MiraLAX 17 g once daily. Please take 30 mL of milk of magnesia once daily. If your bowels become too loose or too frequent you may need to adjust this regimen or discontinue. Please complete the remainder of the antibiotic course, Cefadroxil, that you were prescribed by your orthopedic surgeon. Please continue all other medications as prescribed. SUMMARY OF TEST RESULTS: You were admitted to hospital secondary to constipation and acute urinary retention. A Ricks catheter was placed to decompress the bladder until constipation resolved. It is felt that your urinary retention was a result of your constipation. It is recommended that you utilize the bowel regimen as prescribed to maintain normal bowel habits. On day of discharge you had a Ricks catheter removed and you were able to urinate without difficulty. PENDING TEST RESULTS: None RECOMMENDATIONS FOR FOLLOW-UP: Please follow-up with your primary care provider in 7 to 10 days of discharge. Please follow-up with your orthopedic surgeon as scheduled. Please continue to follow activity restrictions as directed by orthopedic surgeon. Please complete the course of antibiotics as prescribed by orthopedic surgeon. Continue diet as tolerated. Recommend to stay well-hydrated. Encourage ambulation as much as tolerated to help promote bowel function. Limit use of narcotics (oxycodone) as much as possible as this will cause constipation. OTHER INSTRUCTIONS: Seek medical attention if you have: * temperature above 101 * chest pain or trouble breathing * abdominal pain, nausea, vomiting * diarrhea, dark stools or bloody stools * any unanswered questions or concerns Call 911 if symptoms are severe. Please take good care of yourself. It has been a pleasure taking care of you. Please take care of yourself. If you have any questions regarding your recent hospitalization please contact [facility] and request Christie Panchalist @ [phone]. Total Time Total Time Spent Total Time Spent (In Minutes): 45 minutes Supervising Physician Co-Signing Physician Notes Patient seen and examined independently. Discussed with above provider. Patient is having consistent bowel movement. Ricks catheter was removed; patient voided spontaneously. Discharged home with instructions to continue bowel regimen. Patient to follow-up with his PCP. I have reviewed the advanced practitioner's documentation, and I agree with, and take responsibility for the plan of care I spent a total of 20 minutes coordinating, documenting, and providing care for this patient excluding time spent in the performance of separately billed services. All of the aforementioned completed while collaborating with the assigned advanced practitioner for a full treatment plan Home Health Attestation I certify that this patient is under my care and that I, or a physicians household personal assistant working with me, had a face to-face encounter that meets the home health [id number] encounter requirements with this patient. The encounter with the patient was in whole, or in part, for the following medical condition, which is the primary reason for home health care (list medical condition): I certify that, based on my findings, the following services are medically necessary home health services: My clinical findings support the need for the above services because: Further, I certify that my clinical findings support that this patient is homebound (i.e. absences from home require considerable and taxing effort and are for medical reasons or [facility] or infrequently or of short duration when for other reasons) because: Certification for Home Health Services: Based on the above findings, I certify that this patient is confined to the home and needs intermittent custodial care, physical therapy and/or speech therapy or continues to need occupational therapy. The patient is under my care, and I have initiated the establishment of the plan of care. This patient will be followed by a physician who will periodically review the plan of care.
--- NOTE | 2023-12-08 07:25 | Electrocardiogram Report ---
Test Reason : Blood Pressure : / mmHG Vent. Rate : 092 BPM Atrial Rate : 092 BPM P-R Int : 172 ms QRS Dur : 086 ms QT Int : 360 ms P-R-T Axes : 033 -18 042 degrees QTc Int : 445 ms Normal sinus rhythm Possible Left atrial enlargement Minimal voltage criteria for LVH, may be normal variant ( R in aVL ) Anterior infarct , age undetermined Abnormal ECG When compared with ECG of 05-NOV-2023 09:48, Anterior infarct is now Present Confirmed by Mahendra iMrza ([id number]) on 12/08/2023 7:25:03 AM Referred By: REFERRED SELF Confirmed By:Mahendra Mirza
== END 2023-12-07 14:53 | disposition home health service (06) | DRG 389 ==
LOC: ED 23:09 → 3W 12-06 04:23

== ENCOUNTER 2024-09-26 08:02 | Observation (INO) ==
--- NOTE | 2024-08-15 15:07 | PAT Medication Instructions ---
Medication Instructions Date of Service August 15, 2024 Home Medications Medication Instructions Recorded famotidine 20 mg tablet (Pepcid) 20 mg PO .bid prn #90 tabs 06/01/24 gabapentin 100 mg capsule 100 mg PO TID levocetirizine 5 mg tablet 5 mg PO QAM levothyroxine 75 mcg tablet 75 mcg PO QAM metoprolol tartrate 50 mg tablet 50 mg PO BID multivitamin 1 tab PO QAM tamsulosin 0.4 mg capsule 0.4 mg PO QPM clopidogrel 75 mg tablet 75 mg PO QAM ezetimibe 10 mg tablet (Zetia) 10 mg PO QPM atorvastatin 40 mg tablet 80 mg PO QPM dapagliflozin propanediol 5 mg tablet (Farxiga) 5 mg PO QAM flunisolide 25 mcg (0.025 %) nasal spray 2 spray intranasal BID mecobalamin (vitamin B12) 2,500 mcg chewable tablet 2,500 mcg PO QAM montelukast 10 mg tablet 10 mg PO QAM nitroglycerin 0.4 mg sublingual tablet 0.4 mg sublingual Q5M PRN albuterol sulfate 90 mcg/actuation aerosol inhaler 2 puff inhalation Q6H PRN cetirizine 10 mg tablet (Zyrtec) 10 mg PO DAILY PRN ferric maltol 30 mg capsule (Accrufer) 30 mg PO BID fluticasone propionate 50 mcg/actuation nasal spray,suspension 2 spray intranasal DAILY furosemide 20 mg tablet 20 mg PO DAILY PRN hydrocortisone acetate 25 mg rectal suppository (Anusol-HC) 25 mg [place] DAILY PRN magnesium hydroxide 400 mg/5 mL oral suspension (Milk of Magnesia) 5 ml PO DAILY PRN omeprazole 40 mg capsule,delayed release 40 mg PO QAM polyethylene glycol 3350 17 gram/dose oral powder (Miralax) 17 g PO DAILY famotidine 20 mg tablet (Pepcid) 20 mg PO BID PRN STOP 3 days before surgery dapagliflozin propanediol 5 mg tablet (Farxiga) 5 mg PO QAM Continue as directed fluticasone propionate 50 mcg/actuation nasal spray,suspension 2 spray intranasal DAILY nitroglycerin 0.4 mg sublingual tablet 0.4 mg sublingual Q5M PRN(if needed) ASK your prescriber and surgeon clopidogrel 75 mg tablet 75 mg PO QAM(in order for spinal or epidural anesthesia, clopidogrel/Plavix needs to be stopped 7 days before surgery. Please check if okay with doctor that prescribes this to you) DO NOT take the morning of surgery levocetirizine 5 mg tablet 5 mg PO QAM multivitamin 1 tab PO QAM mecobalamin (vitamin B12) 2,500 mcg chewable tablet 2,500 mcg PO QAM cetirizine 10 mg tablet (Zyrtec) 10 mg PO DAILY PRN ferric maltol 30 mg capsule (Accrufer) 30 mg PO BID furosemide 20 mg tablet 20 mg PO DAILY PRN hydrocortisone acetate 25 mg rectal suppository (Anusol-HC) 25 mg [place] DAILY PRN magnesium hydroxide 400 mg/5 mL oral suspension (Milk of Magnesia) 5 ml PO DAILY PRN polyethylene glycol 3350 17 gram/dose oral powder (Miralax) 17 g PO DAILY Take morning of surgery With a small sip of water, OTHERWISE NOTHING TO EAT OR DRINK AFTER MIDNIGHT: gabapentin 100 mg capsule 100 mg PO TID levothyroxine 75 mcg tablet 75 mcg PO QAM metoprolol tartrate 50 mg tablet 50 mg PO BID flunisolide 25 mcg (0.025 %) nasal spray 2 spray intranasal BID montelukast 10 mg tablet 10 mg PO QAM albuterol sulfate 90 mcg/actuation aerosol inhaler 2 puff inhalation Q6H PRN(use if needed; please bring with you to hospital day of surgery if possible) omeprazole 40 mg capsule,delayed release 40 mg PO QAM famotidine 20 mg tablet (Pepcid) 20 mg PO BID PRN(if needed) Take evening before surgery gabapentin 100 mg capsule 100 mg PO TID metoprolol tartrate 50 mg tablet 50 mg PO BID tamsulosin 0.4 mg capsule 0.4 mg PO QPM ezetimibe 10 mg tablet (Zetia) 10 mg PO QPM atorvastatin 40 mg tablet 80 mg PO QPM flunisolide 25 mcg (0.025 %) nasal spray 2 spray intranasal BID albuterol sulfate 90 mcg/actuation aerosol inhaler 2 puff inhalation Q6H PRN(if needed) ferric maltol 30 mg capsule (Accrufer) 30 mg PO BID famotidine 20 mg tablet (Pepcid) 20 mg PO BID PRN(if needed) Other Notes If you have any questions please call us at [phone] or [phone] or [phone] or [phone]
--- NOTE | 2024-08-23 11:01 | Anesthesiology Consultation ---
Date of Service August 23, 2024 Assessment & Plan (1) Encounter for pre-operative examination: Chart Review Chart Review: Acceptable Risk for Surgery (pending 07/2022 cath report if available ) and Patient seen in Pre Admission Testing - [facility] for [facility] of care (no reponse needed) - Please obtain 07/2022 cardiac cath from cardio (follows with Dr Torin bennett [facility]) - Patient is NOT an ideal OPJ candidate (currently 23 obs) - Plavix instructions per prescribing provider and surgeon- patient aware Plavix will need held x 7 days in order to be candidate for SAB Per PAT appt on 08/23/24, no recent illness/disease exposures, illness related symptoms, or recent illness/disease positive tests. Will leave to surgeon's discretion if preop Covid testing needed Last seen by cardio 01/28/24= seen for cardio follow up. Doing well since last appt. Did undergo right TKA. Currently in PT and doing well. Has not had any limiting symptoms with his therapy. Currently tolerating Plavix and ASA (ASA added after surgery). CAD- s/p CABG x 5 vessel and November 2021. Developed recurrent symptoms- lead to PCI to marginal branch. Continues to feel well at this time. Can remain on Plavix alone but can continue with ASA if ortho wishes for post op purposes. Continue other medications as prescribed. Follow up in six months. HTN- BP well controlled. HLD- on Zetia and atorvastatin. (Next follow up Oct 2024) (Patient was seen preoperatively prior to right TKA by cardio in 07/2023 "he is interested in having knee surgery. At that time if Plavix is needed to be stopped, switch over 81 mg of aspirin...would consider him low to moderate risk for any perioperative cardiac complications...does not require any further cardiac testing to undergo his surgery.") Right TKA 11/27/23= Done under SAB at L3-4 with multiple attempts History Surgery Operation Date: 09/26/24 07:00 Proposed Procedures p Left Total Knee Arthroplasty - Reno Hooks, DO Height/Weight Height: 5 ft 4 in Weight: 88.7 kg Allergies Allergy/AdvReac Type Severity Reaction Status Date / Time clarithromycin Allergy Mild Rash Verified 08/15/24 07:59 oxycodone AdvReac Severe constipatio Verified 08/15/24 08:06 n lisinopril AdvReac Mild Cough Verified 08/15/24 07:59 prednisone AdvReac Mild Gastrointestinal Verified 08/15/24 07:59 Upset Medications Home Medications Medication Instructions Recorded Confirmed Last Taken gabapentin 100 mg capsule 100 mg PO TID 10/07/21 08/15/24 05/25/24 07:00 levocetirizine 5 mg tablet 5 mg PO QAM 10/07/21 08/15/24 05/24/24 levothyroxine 75 mcg tablet 75 mcg PO QAM 10/07/21 08/15/24 05/25/24 07:00 metoprolol tartrate 50 mg tablet 50 mg PO BID 10/07/21 08/15/24 05/25/24 07:00 multivitamin 1 tab PO QAM 10/07/21 08/15/24 05/21/24 tamsulosin 0.4 mg capsule 0.4 mg PO QPM 10/07/21 08/15/24 05/24/24 20:00 clopidogrel 75 mg tablet 75 mg PO QAM 10/29/23 08/15/24 05/21/24 ezetimibe 10 mg tablet (Zetia) 10 mg PO QPM 10/29/23 08/15/24 05/24/24 20:00 atorvastatin 40 mg tablet 80 mg PO QPM 05/05/24 08/15/24 05/24/24 20:00 dapagliflozin propanediol 5 mg 5 mg PO QAM 05/05/24 08/15/24 Unknown tablet (Farxiga) flunisolide 25 mcg (0.025 %) nasal 2 spray intranasal BID 05/05/24 08/15/24 05/24/24 spray mecobalamin (vitamin B12) 2,500 2,500 mcg PO QAM 05/05/24 08/15/24 05/21/24 mcg chewable tablet montelukast 10 mg tablet 10 mg PO QAM 05/05/24 08/15/24 05/24/24 nitroglycerin 0.4 mg sublingual 0.4 mg sublingual Q5M PRN Chest 05/05/24 08/15/24 Unknown tablet Pain CPAP Machine 05/12/24 06/01/24 Unknown albuterol sulfate 90 mcg/actuation 2 puff inhalation Q6H PRN sob 05/12/24 08/15/24 05/23/24 aerosol inhaler cetirizine 10 mg tablet (Zyrtec) 10 mg PO DAILY PRN Congestion 05/12/24 08/15/24 05/24/24 20:00 ferric maltol 30 mg capsule 30 mg PO BID 05/12/24 08/15/24 05/21/24 (Accrufer) fluticasone propionate 50 2 spray intranasal DAILY 05/12/24 08/15/24 05/24/24 mcg/actuation nasal spray,suspension furosemide 20 mg tablet 20 mg PO DAILY PRN Edema 05/12/24 08/15/24 Unknown hydrocortisone acetate 25 mg 25 mg GA DAILY PRN ud 05/12/24 08/15/24 Unknown rectal suppository (Anusol-HC) magnesium hydroxide 400 mg/5 mL 5 ml PO DAILY PRN ud 05/12/24 08/15/24 05/21/24 oral suspension (Milk of MagniMusician) omeprazole 40 mg capsule,delayed 40 mg PO QAM 05/12/24 08/15/24 05/24/24 release polyethylene glycol 3350 17 17 g PO DAILY 05/12/24 08/15/24 Unknown gram/dose oral powder (Miralax) famotidine 20 mg tablet (Pepcid) 20 mg PO .bid prn #90 tabs 06/01/24 08/15/24 Unknown Past Medical History Medical History Asthma controlled, stable per pt; last rescue inhaler use early may 2024. BPH (benign prostatic hyperplasia) Contact dermatitis Coronary artery disease CABG x 5 (11/2021) Stent x1 to OM (07/2022) GERD (gastroesophageal reflux disease) controlled, stable per pt History of blood transfusion during CABG (11/2021) History of poliomyelitis 1950-pt denies residual complications Hx of migraines Hyperlipidemia Hypertension controlled, stable per pt Hypothyroidism Seasonal allergies Sleep apnea on CPAP-compliant Exercise / Class Metabolic Activity III < 4 Walking/Shop/Light housework (no chest pain or SOB with flat surface ambulation ) Past Family History Family History Mother Family history of diabetes mellitus Daughter Family history of diabetes mellitus Other No family history of adverse response to anesthesia Past Surgical History Surgical History History of cardiac cath Stent x1 (07/2022) History of colonoscopy History of coronary artery bypass graft 11/2021, [facility] History of esophagogastroduodenoscopy (EGD) History of tonsillectomy Hx of inguinal hernia repair S/P total knee replacement right TKA 11/2023 [place] teeth removed Past Anesthesia History No Hx of Anesthesia Complications and No Family Hx of Anesthesia Complications History of PONV No Hx of PONV and No Hx of Motion Sickness Social History Smoking Status: Never smoker Do You Dip or Chew Tobacco: No Hx Alcohol Use: Yes alcohol intake frequency: holidays/special occasions only Hx Substance Use: No substance use type: does not use Review of Systems Patient denies chest pain, shortness of breath, dyspnea on exertion, cough, wheezing, palpitations. No hx of seizures, stroke. No hx of blood clots Physical Exam Vital Signs VITALS BP 110/73 P 71 TEMP 97.4 SP02 92% on RA RESP16 Constitutional no acute distress ENMT Mouth: no TMJ clicking Thyromental Distance: > or= 3.5 Finger Breadths (3.5) Mallampati Class: III Neck + limited neck extension (mild) Respiratory normal respiratory effort; no respiratory distress Auscultation: lungs clear to auscultation bilaterally; no wheezes Cardiovascular Rate/Rhythm: regular rate and regular rhythm Heart Sounds: no murmur Vessels: no carotid bruit Musculoskeletal Spine: no pain with cervical ROM Extremities: extremities normal to inspection Psychiatric Orientation: alert Lab Results Anesthesia Preop Results Results Anesthesia Widget: WBC 4.92 K/ul (4.8-10.8) 08/23/24 Hgb 14.3 g/dl (14.0-18.0) 08/23/24 Hct 43.7 % (42.0-52.0) 08/23/24 Plt 284 K/uL (130-400) 08/23/24 Na 139 mmol/L (136-145) 08/23/24 K 4.0 mmol/L (3.5-5.1) 08/23/24 Cl 108 mmol/L (98-107) H 08/23/24 CO2 23 mmol/L (21-32) 08/23/24 BUN 18 mg/dl (6-23) 08/23/24 Creat 0.80 mg/dl (0.6-1.4) 08/23/24 Glucose Level 125 mg/dl (70-99(Fasting)) H 08/23/24 PT 10.9 Seconds (9.0-12.0) 08/23/24 PTT 26 Seconds (21-31) 08/23/24 INR 1.0 (0.9-1.1) 08/23/24 Blood Type A Positive 08/23/24 Antibody Screen NEGATIVE 08/23/24 Testing Electrocardiogram Date: 08/23/24 Findings: + NSR @ (67bpm) Incomplete RBBB Cannot rule out anterior infarct (cited on or before December 05, 2023) When compared to EKG from December 05, 2023- no significant change was found per cardio (Poor R wave progression noted on Nov 05, 2023 EKG as well- tolerated right TKA without issues) Chest X-Ray Date: 11/05/23 FINDINGS: PA and lateral chest radiographs are obtained. No prior studies are available for comparison at the time of dictation. The patient is status post midline sternotomy. The heart is enlarged. The pulmonary vasculature is noncongested. There is bibasilar scarring/atelectasis. The lungs and pleural spaces are otherwise clear. There is no pneumothorax. The skeletal structures are osteopenic. The bony thorax appears intact. IMPRESSION: Cardiomegaly with no active disease in the chest. Echocardiogram Date: 04/06/23 EF: 55-60% LV Function: normal RWMA: + none Other Findings: + diastolic dysfunction (Grade I ); no LVH Valvular Disease: + no significant valvular disease Normal RV size and systolic function Severely dilated left atrium by LA volume index calculation No pericardial effusion is seen Stress Test Date: 07/15/22 Type: nuclear Myocardial perfusion appears abnormal following pharmacologic stress with Regadenoson Findings are suggestive of mild to moderate ischemia along the lower lateral wall extending to the inferior wall suggesting circumflex disease. LV systolic function is normal following Lexiscan Regadenoson stress. Wall motion abnormality along the septum is related to poststernotomy changes. EF is normal (Patient had subsequent cath with [place] to OM 07/2022)
--- NOTE | 2024-09-22 13:28 | History & Physical Report ---
Date of Service September 22, 2024 Assessment & Plan (1) Osteoarthritis of left knee: We will proceed with a left total knee arthroplasty. Postoperatively he will be started on aspirin and Plavix for DVT prophylaxis and kept overnight in the hospital for postop medical management. He plans to have the hospital set up home health for discharge. History of Present Illness Chief Complaint: Osteoarthritis of the left knee. Primary Care Provider: Xiomara Guzman PA-C Kapil is a pleasant 79-year-old male who I did a right knee replacement on in November 2023. He has done very well with that. Unfortunately, he is now dealing with left knee pain. X-rays and clinical exams have been diagnostic for advanced arthritis of the left knee. After failing extensive conservative treatment, he has elected to proceed with a left total knee arthroplasty. Allergies Allergy/AdvReac Type Severity Reaction Status Date / Time clarithromycin Allergy Mild Rash Verified 08/15/24 07:59 oxycodone AdvReac Severe constipatio Verified 08/15/24 08:06 n lisinopril AdvReac Mild Cough Verified 08/15/24 07:59 prednisone AdvReac Mild Gastrointestinal Verified 08/15/24 07:59 Upset Home Medications Medication Instructions Recorded Confirmed Type gabapentin 100 mg capsule 100 mg PO TID 10/07/21 08/15/24 History levocetirizine 5 mg tablet 5 mg PO QAM 10/07/21 08/15/24 History levothyroxine 75 mcg tablet 75 mcg PO QAM 10/07/21 08/15/24 History metoprolol tartrate 50 mg tablet 50 mg PO BID 10/07/21 08/15/24 History multivitamin 1 tab PO QAM 10/07/21 08/15/24 History tamsulosin 0.4 mg capsule 0.4 mg PO QPM 10/07/21 08/15/24 History clopidogrel 75 mg tablet 75 mg PO QAM 10/29/23 08/15/24 History ezetimibe 10 mg tablet (Zetia) 10 mg PO QPM 10/29/23 08/15/24 History atorvastatin 40 mg tablet 80 mg PO QPM 05/05/24 08/15/24 History dapagliflozin propanediol 5 mg 5 mg PO QAM 05/05/24 08/15/24 History tablet (Farxiga) flunisolide 25 mcg (0.025 %) nasal 2 spray intranasal BID 05/05/24 08/15/24 His tory spray mecobalamin (vitamin B12) 2,500 2,500 mcg PO QAM 05/05/24 08/15/24 History mcg chewable tablet montelukast 10 mg tablet 10 mg PO QAM 05/05/24 08/15/24 History nitroglycerin 0.4 mg sublingual 0.4 mg sublingual Q5M PRN Chest 05/05/24 08/15/24 History tablet Pain CPAP Machine 05/12/24 06/01/24 History albuterol sulfate 90 mcg/actuation 2 puff inhalation Q6H PRN sob 05/12/24 08/15/24 History aerosol inhaler cetirizine 10 mg tablet (Zyrtec) 10 mg PO DAILY PRN Congestion 05/12/24 08/15/24 History ferric maltol 30 mg capsule 30 mg PO BID 05/12/24 08/15/24 History (Accrufer) fluticasone propionate 50 2 spray intranasal DAILY 05/12/24 08/15/24 History mcg/actuation nasal spray,suspension furosemide 20 mg tablet 20 mg PO DAILY PRN Edema 05/12/24 08/15/24 History hydrocortisone acetate 25 mg 25 mg AR DAILY PRN ud 05/12/24 08/15/24 History rectal suppository (Anusol-HC) magnesium hydroxide 400 mg/5 mL 5 ml PO DAILY PRN ud 05/12/24 08/15/24 History oral suspension (Milk of Magnesia) omeprazole 40 mg capsule,delayed 40 mg PO QAM 05/12/24 08/15/24 History release polyethylene glycol 3350 17 17 g PO DAILY 05/12/24 08/15/24 History gram/dose oral powder (Miralax) famotidine 20 mg tablet (Pepcid) 20 mg PO .bid prn #90 tabs 06/01/24 08/15/24 Rx Past Med/Surg History Problem List Osteoarthritis of left knee Chronic diarrhea Heartburn Loose stools Status post right knee replacement (~11/2023) Osteoarthritis of right knee History of colon polyps Encounter for pre-operative examination Medical History 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 Surgical History S/P total knee replacement right TKA 11/2023 Hx of inguinal hernia repair History of cardiac cath Stent x1 (07/2022) History of coronary artery bypass graft 11/2021, [facility] History of esophagogastroduodenoscopy (EGD) History of colonoscopy [place] teeth removed History of tonsillectomy Family History Mother Family history of diabetes mellitus Daughter Family history of diabetes mellitus Other No family history of adverse response to anesthesia Social History Smoking Status: Never smoker Second Hand Exposure: No; Do You Dip or Chew Tobacco: No; Hx Alcohol Use: Yes Hx Substance Use: No Preferred Language: Latvian Communication Ability: Effective Electrical Sign Wirer Helper Required: No Beliefs That Will Affect Care: None Current Living Situation: Significant Other Current Living Situation Comment: WITH DAUGHTER Feels Safe at Home: Yes Assistive Devices: CPAP and Glasses Review of Systems All systems reviewed & are unremarkable except as noted in HPI & below. Physical Exam On physical exam of the left knee, is a slight varus deformity. Tenderness palpation of the distal medial femoral condyle and over the medial joint line.. Constitutional WD/WN, vitals as above Eyes PERRL, conjunctivae normal, anicteric sclerae ENMT external ear and nose normal, oropharynx normal Neck trachea midline, no thyromegaly Respiratory normal respiratory effort Cardiovascular RRR, no murmur, no edema Gastrointestinal (Abdomen) normal bowel sounds, soft, nontender, no hepatosplenomegaly Psychiatric A+Ox3, euthymic affect Results & Data Results & Data Laboratory Results . Diagnostic Findings X-rays of the left knee show advanced osteoarthritis with joint space narrowing, osteophyte formation, and [id number] articulation. PG Care Time/CCT Total # of Minutes Spent Total Time Spent with Patient: Total time spent is greater than 50% in coordination of care (as documented) at patient's floor/unit and/or counseling patient: Coding Level of Care Code None Diagnoses Osteoarthritis of left knee M17.12
[~2024-09-26 08:02] MED LIST changes: -BUPIVACAINE 0.5 % 5 MG/1 ML PF 10ML VIAL ONE
--- NOTE | 2024-09-26 08:09 | History & Physical Bridge Note ---
Date of Service September 26, 2024 History & Physical Bridge Note I have examined the patient, reviewed the History & Physical and in the interval since the performance of the History & Physical I have noted the following changes of clinical significance: no changes noted
[2024-09-26] MEDS: GABAPENTIN 300 MG CAP PO SCH (09:04)
[2024-09-26] MEDS: ACETAMINOPHEN 500 MG TAB PO SCH ×2 (09:04→17:29)
[2024-09-26] MEDS: dexAMETHasone**PF** 10 MG/ML VIAL IV SCH (09:04)
[2024-09-26] MEDS: FAMOTIDINE 20 MG TAB PO SCH (09:04)
[2024-09-26] MEDS: LR 500ML BOLUS, THEN 15ML/HR IV SCH (09:05)
[2024-09-26] MEDS: LR 60ML/HR IV SCH (09:06)
[2024-09-26] MEDS ORDERED: MIDAZOLAM HCL 1 MG/ML 2ML VIAL ONE (09:13)
[2024-09-26] MEDS ORDERED: PROPOFOL IV EMULSION 10 MG/ML 20 ML VIAL IV ONE (09:13)
[2024-09-26] MEDS ORDERED: ePHEDrine sulfate 50 MG/ML AMP IV PRN (09:15)
[2024-09-26] MEDS ORDERED: HYDROmorphone INJ 1 MG/ML SYRINGE IV PRN (09:15)
[2024-09-26] MEDS ORDERED: ATROPINE SULFATE 0.1 MG/ML 10ML SYR IV PRN (09:15)
[2024-09-26] MEDS ORDERED: fentaNYL citrate PF 100 MCG/2 ML VIAL IV PRN (09:15)
[2024-09-26] MEDS: TRANEXAMIC ACID 1,000 MG **IV Pre-op IV SCH (09:54)
[2024-09-26] MEDS: ceFAZolin 2000MG 2,000 MG/15 ML SYR IV SCH ×2 (10:27→17:29)
[2024-09-26] MEDS: ROPIV 0.5% 246mg, Ketorolac 30mg, EPINEPHrine 0.5mg in NSS INFIL SCH (10:45)
[2024-09-26] MEDS: ORTHO JOINT ANESTHETIC ONE (10:45)
[2024-09-26] MEDS ORDERED: ONDANSETRON INJ 2 MG/ML 2 ML VIAL ONE (10:50)
[2024-09-26] MEDS: TRANEXAMIC ACID 1,000 MG **IV Intra-op IV SCH (11:23)
--- NOTE | 2024-09-26 11:47 | Operative Report ---
PG Post Operative Report Pre & Post Diagnosis Operation Date: 09/26/24 10:20 Pre-Op Diagnosis: Left Knee Arthritis Post-Op Diagnosis: Left Knee Arthritis I identified the patient and participated in the time-out.: Yes Procedure Operation Date: 09/26/24 10:20 Actual Procedures p Left Total Knee Arthroplasty(Left) - Reno Hooks DO Surgeon Reno Hooks DO Thermal Cutting Tracer Machine Operator Aquiles Hart PA-C Estimated Blood Loss 50 Findings Consistent with Post-Op Diagnosis Specimens Left femoral and tibial bone Description of Procedure Implants used: I used a Maxim Persona total knee arthroplasty system with a size 9 standard PS femur, F tibia, 34 oval patella, and a size 10 CPS polyethylene bearing. All components were cemented in place with Biomet cement. Kapil arrived [facility] for the above procedure. He was seen in the preoperative holding area and the operative extremity was identified and signed. He was given a preoperative antibiotic, TXA, a spinal anesthetic and an adductor nerve block. He was taken back to the operating room and laid on the table in supine position. He was given basic sedation. The operative knee was then prepped and draped in sterile fashion. A timeout was done, and the patient and the operative extremity was properly identified. A midline incision was made directly over the patella. Dissection was taken down to the extensor mechanism. A medial parapatellar arthrotomy was used. The medial retinaculum was released and the fat pad was mostly excised. The knee was flexed and the ACL, PCL, and meniscus were removed. A drill was sent down the center of the femoral canal followed by an intramedullary ga. Off that ga a distal femoral cutting block was placed. 9 mm was resected off the distal femur at 5 of valgus. A posterior referencing AP sizing guide was then placed on the distal femur. The femur measured to be a size 9. 2 drill holes were placed in 3 of external rotation. A 4-in-1 cutting block was then impacted into place. Anterior, posterior, and chamfer cuts were then made. The proximal tibia was then exposed. An external tibial alignment guide was placed. A tibial cut guide was then anchored in place and the proximal tibia was then resected. The posterior aspect of the knee was then opened up and any additional meniscus fragments and osteophytes were removed. The tibia measured to be a size F. The tibial plate was then placed in the appropriate rotation and the tibia was drilled and punched. Trial components were then placed. I used a size 10 CPS polyethylene insert. The knee was brought through a full range of motion and felt to be stable. The peg holes for the femoral component were then drilled. The patella was then everted and 9 mm was resected off the posterior aspect of the patella. The patella measured to be a size 34 oval. 3 peg holes were then drilled. A trial patella was placed. The knee was once again brought through a full range of motion and felt to be stable. Trial components were then removed. The surrounding soft tissues were injected with 100 cc of an orthopedic pain control cocktail. All components were then cemented into place with Biomet cement. The final polyethylene insert was then snapped into place. Once cement was dry the tourniquet was deflated. Hemostasis was obtained. A dilute betadyne lavage was then done for 3 minutes. The joint was then irrigated with normal saline solution. The medial parapatellar arthrotomy was then closed with #1 Vicryl suture. The skin was closed with 2-0 Vicryl, 3-0V lock suture, and sidney. A soft compressive dressing was placed. He was then transferred to a hospital bed and taken to the postanesthesia care unit in stable condition. He tolerated the procedure well. Aquiles Hart PA-C, was present for the entire procedure. He was critical for patient positioning, prepping, draping, retraction exposure, wound closure and application of sterile dressing. I attest to the content of the Intraoperative Record and any orders documented therein. Any exceptions are noted below.
[2024-09-26] MEDS ORDERED: NALOXONE HCL 0.4 MG/1 ML VIAL/CARP IV PRN (12:54)
[2024-09-26] MEDS ORDERED: ALBUTEROL HFA 8 GM INHALER INH PRN (12:54)
[2024-09-26] MEDS ORDERED: HYDROmorphone INJ 0.5 MG/0.5 ML SYR IV PRN (12:54)
[2024-09-26] MEDS ORDERED: bisacodyL 10 MG SUPP PR PRN (12:54)
[2024-09-26] MEDS ORDERED: MAGNESIUM HYDROXIDE SUSP 30 ML UDC PO PRN (12:54)
[2024-09-26] MEDS ORDERED: METOCLOPRAMIDE HCL INJ 5 MG/ML 2 ML VIAL IV PRN (12:54)
[2024-09-26] MEDS ORDERED: ONDANSETRON INJ 2 MG/ML 2 ML VIAL IV PRN (12:54)
[2024-09-26] MEDS ORDERED: FUROSEMIDE 20 MG TAB PO PRN (12:54)
--- NOTE | 2024-09-26 12:54 | XRay Report ---
XR knee LT 1 or 2V routine CLINICAL HISTORY: Surgical Post Op TECHNIQUE: 2 views of the left knee were obtained. Comparison: None available at the time of this dictation. FINDINGS: Patient is status post total knee arthroplasty with expected postsurgical changes including soft tiss ue swelling and subcutaneous emphysema. No periarticular lucency or hardware fracture is seen. IMPRESSION: Expected postoperative appearance status post placement of total knee arthroplasty. ACT 112: Negative or not required by law. Electronically signed by: Mckinley Reynaga M.D. 09/26/2024 12:53 PM
--- NOTE | 2024-09-26 13:46 | Anesthesiology Progress Note ---
Date of Service September 26, 2024 Anesthesia Post Procedure Vital Signs Vital Signs: Temp Pulse Pulse Resp BP BP Pulse Ox 09/26/24 13:29 71 18 121/75 93 09/26/24 12:50 68 17 105/64 92 09/26/24 12:40 36.5 C 66 15 103/66 92 09/26/24 12:30 69 15 109/64 94 09/26/24 12:20 68 14 106/64 92 09/26/24 12:10 71 17 109/66 92 09/26/24 12:02 36.3 C L 71 15 113/71 94 09/26/24 08:43 36.5 C 69 22 142/83 H 92 O2 Del Method O2 Flow Rate 09/26/24 13:29 Room Air 09/26/24 12:50 Nasal Cannula 2 09/26/24 12:40 Nasal Cannula 2 09/26/24 12:30 Nasal Cannula 4 09/26/24 12:20 Nasal Cannula 4 09/26/24 12:10 Oxymask 10 09/26/24 12:02 Oxymask 10 09/26/24 08:43 Room Air Transfer of Care Handoff Completed per policy Notes Mental Status: alert / awake / arousable and participated in evaluation Patient Amnestic to Procedure: Yes Nausea / Vomiting: adequately controlled Pain: adequately controlled Airway Patency, RR, SpO2: stable & adequate BP & HR: stable & adequate Hydration State: stable & adequate Anesthetic Complications: no major complications apparent and Pt Satisfied with anesthetic care
[2024-09-26] MEDS: GABAPENTIN 100 MG CAP PO SCH (14:12)
[2024-09-26] MEDS: KETOROLAC TROMETHAMINE 15 MG/ML VIAL IV SCH (14:13)
[2024-09-26] MEDS: traMADol HCL 50 MG TABLET PO PRN (17:29)
[2024-09-26] MEDS ORDERED: FAMOTIDINE 20 MG TAB PO PRN (21:00)
[2024-09-26] MEDS: SENNA 8.6 MG TAB PO SCH (21:16)
[2024-09-26] MEDS: EZETIMIBE 10 MG TAB PO SCH (21:16)
[2024-09-26] MEDS: TAMSULOSIN HCL 0.4 MG CAP PO SCH (21:16)
[2024-09-26] MEDS: ASPIRIN 81 MG ECTAB PO SCH (21:16)
[2024-09-26] MEDS: METOPROLOL TARTRATE 50 MG TAB PO SCH (21:16)
[2024-09-26] MEDS: ATORVASTATIN 40 MG TAB PO SCH (21:16)
[2024-09-26] MEDS: DOCUSATE SODIUM 100 MG CAP PO SCH (21:16)
[2024-09-27] MEDS: LEVOTHYROXINE SODIUM 75 MCG TABLET PO SCH (05:45)
[2024-09-27 07:54] VITALS: BP 132/73; PULSE 64; RESP 19; TEMP 97.9; O2SAT 93
[2024-09-27] MEDS: dexAMETHasone 4 MG TAB PO SCH (07:55)
[2024-09-27] MEDS: MONTELUKAST SODIUM 10 MG TABLET PO SCH (07:55)
[2024-09-27] MEDS: CLOPIDOGREL BISULFATE 75 MG TAB PO SCH (07:55)
[2024-09-27] MEDS: PANTOprazole 40 MG TAB PO SCH (07:55)
[2024-09-27] MEDS: MULTIVITAMIN TAB PO SCH (07:56)
--- NOTE | 2024-09-27 09:24 | Orthopedic Progress Note ---
Date of Service September 27, 2024 Assessment & Plan (1) Status post left knee replacement: Assessment: Status post left knee replacement. Plan: Kapil is doing quite well today with good pain control of the left knee. He will work with physical therapy later this morning to work on ambulation and range of motion exercises. He is on aspirin for DVT prophylaxis. He should remain in his knee immobilizer until he follows up postoperatively. He only needs to be in this whenever he is ambulating. Any other time he may be out of it for rest as well as physical therapy. He can be discharged later this morning pending formal physical therapy evaluation recommendations. Dressings can be changed after completion of physical therapy. He will follow-up with orthopedics in 2 weeks for postoperative management or sooner if needed. He verbalized understanding and agrees with this plan. Subjective . Kapil was seen this morning resting comfortably in no apparent distress. He notes he is doing well today with good pain control left knee. He has been up and out of bed with no significant issues. He has yet to complete physical therapy this morning. He denies any concerns with the surgical incision site. Denies any active bleeding, discharge, or signs infection. He has been in his knee immobilizer as directed. He denies any other concerns today. Review of Systems All systems reviewed & are unremarkable except as noted in HPI & below. Physical Exam . On physical examination the left knee, dressings are clean, dry, and intact. No active bleeding, discharge, or signs of infection. Slight tenderness to palpation adjacent to the surgical site. Leg is out in full extension with limited range of motion secondary to postoperative weakness and soreness. Calf soft nontender to palpation. Negative Homans' sign. Intact plantarflexion and dorsiflexion of the left ankle. +2 DP and PT pulses. Less than 2-second capillary refill. Normal sensation. Neurovascular intact. Results & Data Results & Data Laboratory Results . Diagnostic Findings . Knee X-Ray 09/26/24 12:09 XR knee LT 1 or 2V routine CLINICAL HISTORY: Surgical Post Op TECHNIQUE: 2 views of the left knee were obtained. Comparison: None available at the time of this dictation. FINDINGS: Patient is status post total knee arthroplasty with expected postsurgical changes including soft tissue swelling and subcutaneous emphysema. No periarticular lucency or hardware fracture is seen. IMPRESSION: Expected postoperative appearance status post placement of total knee arthroplas ty. ACT 112: Negative or not required by law. Electronically signed by: Mckinley Reynaga M.D. 09/26/2024 12:53 PM PG Care Time/CCT Total # of Minutes Spent Total Time Spent with Patient: Total time spent is greater than 50% in coordination of care (as documented) at patient's floor/unit and/or counseling patient: Coding Level of Care Code 73774 Post Operative Follow-Up Diagnoses Status post left knee replacement Z96.652
--- NOTE | 2024-09-27 09:25 | Discharge Summary ---
Date of Service September 27, 2024 Admission HPI (Per Admitting) Kapil is a pleasant 79-year-old male who I did a right knee replacement on in November 2023. He has done very well with that. Unfortunately, he is now dealing with left knee pain. X-rays and clinical exams have been diagnostic for advanced arthritis of the left knee. After failing extensive conservative treatment, he has elected to proceed with a left total knee arthroplasty. Admission Exam (Per Admitting) On physical exam of the left knee, is a slight varus deformity. Tenderness palpation of the distal medial femoral condyle and over the medial joint line.. Principal Diagnosis Same as "Discharge Diagnosis" noted below under Discharge Instructions. Discharge Exam . On physical examination the left knee, dressings are clean, dry, and intact. No active bleeding, discharge, or signs of infection. Slight tenderness to palpation adjacent to the surgical site. Leg is out in full extension with limited range of motion secondary to postoperative weakness and soreness. Calf soft nontender to palpation. Negative Homans' sign. Intact plantarflexion and dorsiflexion of the left ankle. +2 DP and PT pulses. Less than 2-second capillary refill. Normal sensation. Neurovascular intact. Discharge Data Procedures Performed Operation Date: 09/26/24 10:20 Actual Procedures p Left Total Knee Arthroplasty(Left) - Reno Hooks DO Ordered Studies 09/26/24 05:00 US - OR guided needle placemen Routine Hospital Course (1) Status post left knee replacement: On September 26, 2024 Kapil arrived at [facility] and underwent a left total knee arthroplasty performed by Dr. Hooks with no complications. He had a spinal anesthetic. Postoperatively, he was started on aspirin for DVT prophylaxis and transferred to the general orthopedic floor in stable condition. His hospital course is uneventful. On postoperative day #1, his vital signs are stable and his pain was well-controlled. He participated well physical therapy working on ambulation and range of motion exercises. He was then discharged home in stable condition. He will follow-up with orthopedics in 2 weeks for postoperative management. PG Care Time/CCT Total # of Minutes Spent Total Time Spent with Patient: Total time spent is greater than 50% in coordination of care (as documented) at patient's floor/unit and/or counseling patient: Discharge Plan Discharge Items Patient Disposition: Home - Home Health Services Reason For Visit: Left Knee Arthritis Discharge Diagnosis: Same Activity: Per Instructions section Non-emergency contact: Surgeon Call non-emergency contact if: your temperature is above 101.5, your wound has increased redness, your wound has increased drainage and your wound pain has increased Follow-up/Referrals: Xiomara Guzman PA-C [Primary Care Provider] - Diet: Regular Addtl Attending Provider Instructions: Activity and Therapy Recommendations: * If you are using [facility] then Physical Therapy will be provided until they feel you are ready to start Outpatient Physical Therapy. If you are not using a Home Health agency then Outpatient Physical Therapy should start about 3-5 days from your day of surgery. Therapy will last about 6-10 weeks * It is important not to put a pillow under your knee when you are relaxing or sleeping. It is just as important to make sure you are getting your knee perfectly straight as it is to regain your knee bend. * You were shown a series of exercises in the hospital. Do these exercises three times each day including the exercises you were shown in physical therapy. * Get up and walk several times each day. For the first four weeks, try not to stand or walk for more than one hour at a time. If you do stand or walk for more than one hour, you will not hurt anything, but your leg will likely swell. * As you feel comfortable, you may change from the walker or crutches to a cane and then to independent walking. * You may return to previous diet. Medications: * Narcotic You will likely be sent home from the hospital with a prescription for the narcotic pain medication that worked best throughout your stay. * Aspirin Most patients will be required to take Aspirin 81mg twice a day for 6 weeks after surgery. This is obtained [id number] and a prescription is not necessary. * Other medications may be prescribed for specific circumstances. If you have any questions, please call the office at . * Resume previous home medications unless otherwise instructed TEDs/Elastic Stockings: The white elastic stockings help limit swelling and prevent blood clots from forming in your legs.~ The more you wear them, the more they work. Wear them for six weeks. Dressing Care: If the incision is not draining then you may leave the sidney open to air. If there is a little bit of drainage or if the sidney are getting stuck on your clothing then cover the incision with a dry dressing. The sidney will be removed at your 2 week follow-up appointment. Showering: You may shower 5 days from the day of surgery. Let the soapy shower water run over the sidney and pat them dry. Do not scrub or soak the incision. Things To Watch For: * Drainage from the incision site that occurs more than one week after your surgery. * Increased redness at the incision site. * Fever above 102 degrees Fahrenheit. * Unusual chest pain or shortness of breath. * Call [facility] at [phone] with any of the above problems. Follow-Up Visit: Follow-up with Dr. Hooks 2-3 weeks after your day of surgery. An appointment was probably scheduled when you signed-up for surgery in the office. If you have any questions call . Office Instructions: More detailed instructions as well as Frequently Asked Questions were provided in a folder by our office when you signed-up for surgery. Please review these instructions when you get home. If you have any further questions or concerns, please feel free to call the office at [phone]. Pending Studies at Discharge: No Stand-Alone Forms: My [facility], Smoking Cessation Medications and DC Order Prescriptions: New aspirin 81 mg Tablet,Delayed Release (Dr/Ec) 81 mg PO BID 42 Days Qty: 84 0RF oxycodone 5 mg Tablet 5 mg PO Q8H PRN (Reason: pain) Qty: 30 0RF cefadroxil 500 mg capsule 500 mg PO BID 10 Days Qty: 20 0RF Continued atorvastatin 40 mg tablet 80 mg PO QPM flunisolide 25 mcg (0.025 %) spray,non-aerosol 2 spray intranasal BID montelukast 10 mg tablet 10 mg PO QAM nitroglycerin 0.4 mg tablet, sublingual 0.4 mg sublingual Q5M PRN (Reason: Chest Pain) Rx Instructions: do not exceed 3 doses per episode mecobalamin (vitamin B12) 2,500 mcg tablet,chewable 2,500 mcg PO QAM dapagliflozin propanediol [Farxiga] 5 mg tablet 5 mg PO QAM cetirizine [Zyrtec] 10 mg tablet 10 mg PO DAILY PRN (Reason: Congestion) hydrocortisone acetate [Anusol-HC] 25 mg suppository 25 mg OR DAILY PRN (Reason: ud) Accrufer 30 mg capsule 30 mg PO BID fluticasone propionate 50 mcg/actuation spray,suspension 2 spray intranasal DAILY Rx Instructions: administer into each nostril furosemide 20 mg tablet 20 mg PO DAILY PRN (Reason: Edema) omeprazole 40 mg capsule,delayed release(DR/EC) 40 mg PO QAM albuterol sulfate 90 mcg/actuation HFA aerosol inhaler 2 puff inhalation Q6H PRN (Reason: sob) (DME) CPAP Machine Misc See Rx Instructions .Route Rx Instructions: As directed polyethylene glycol 3350 [Miralax] 17 gram/dose powder 17 g PO DAILY magnesium hydroxide [Milk of Magnesia] 400 mg/5 mL suspension 5 ml PO DAILY PRN (Reason: ud) famotidine [Pepcid] 20 mg tablet 20 mg PO .bid prn Qty: 90 3RF multivitamin Tablet 1 tab PO QAM levothyroxine 75 mcg Tablet 75 mcg PO QAM tamsulosin 0.4 mg Capsule 0.4 mg PO QPM metoprolol tartrate 50 mg Tablet 50 mg PO BID gabapentin 100 mg Capsule 100 mg PO TID clopidogrel 75 mg Tablet 75 mg PO QAM ezetimibe [Zetia] 10 mg Tablet 10 mg PO QPM Admission Data Admit Date/Time: 09/26/24 12:09 Attending Provider: Reno Hooks Admit Provider: Reno Hooks Primary Care Provider: Xiomara Guzman
[2024-09-27] MEDS: oxyCODONE HCL IR 5 MG TAB (IMMEDIATE RELEASE) PO PRN (10:48)
== END 2024-09-27 11:11 | disposition home health service (06) ==
LOC: ASU 08:02 → 3E 08:02
DX: E03.9 Hypothyroidism, unspecified; I10 Essential (primary) hypertension; E78.5 Hyperlipidemia, unspecified; Z88.8 Allergy status to other drugs, medicaments and biological substances; K21.9 Gastro-esophageal reflux disease without esophagitis; G47.33 Obstructive sleep apnea (adult) (pediatric); M17.12 Unilateral primary osteoarthritis, left knee; Z79.899 Other long term (current) drug therapy; Z79.890 Hormone replacement therapy; I25.10 Atherosclerotic heart disease of native coronary artery without angina pectoris; Z88.5 Allergy status to narcotic agent

== ENCOUNTER 2025-08-28 11:13 | Inpatient (IN) ==
[2025-08-28 11:40] LABS: Hematocrit (blood only) 31.8 % (42.0-52.0); Hemoglobin 9.6 g/dL (14.0-18.0); Immature Granulocytes # (auto) 0.05 K/uL (0.01-0.20); Immature Granulocytes % (auto) 0.7 %; Mean Corpuscular Hemoglobin 25.7 pg (25.0-34.0); Mean Corpuscular Volume 85.0 fL (80.0-100.0); Platelet Count 457 K/uL (130-400); RDW Standard Deviation 48.1 fL (36.4-46.3); Red Blood Count 3.74 M/uL (4.70-6.10); White Blood Count 7.43 K/ul (4.8-10.8)
[2025-08-28] MEDS: NITROGLYCERIN 2% OINTMENT 30GM TUBE EXT STA (11:40)
[2025-08-28] MEDS: ASPIRIN CHEW 324 MG PO STA (11:40)
--- NOTE | 2025-08-28 11:49 | XRay Report ---
XR chest 1V portable HISTORY: 80 years-old Male Chest pain, nonspecific COMPARISON: 11/05/2023 TECHNIQUE: AP view of the chest FINDINGS: Cardiac silhouette is enlarged. Median sternotomy wires are present. Pulmonary vascular congestion. N o pneumothorax or large pleural effusion. Mild bibasilar densities favor atelectasis. Degenerative ch anges of the shoulders and spine. Surgical clips project over the left upper quadrant abdomen. IMPRESSION: Cardiomegaly with pulmonary vascular congestion. ACT 112: Negative or not required by law. The above report was generated using voice recognition software. It may contain grammatical, syntax o r spelling errors. Electronically signed by: Bk Esposito M.D. 08/28/2025 11:47 AM
[2025-08-28 11:58] LABS: Alanine Aminotransferase 15.0 U/L (7-52); Albumin Globulin Ratio 1.6 (0.9-2); Albumin Level 4.1 gm/dl (3.4-5.0); Alkaline Phosphatase 56.0 U/L (34-104); Anion Gap 8.0 (3-11); Bilirubin,Total 0.4 mg/dl (0.2-1.0); Blood Urea Nitrogen 20.0 mg/dl (6-23); Calcium 9.0 mg/dl (8.6-10.3); Carbon Dioxide 22.0 mmol/L (21-32); Chloride 106.0 mmol/L (98-107); Creatinine Clr Calc Pharmacy 61.7 ml/min; Globulin 2.5 gm/dl (2.5-4.0); Glucose 145.0 mg/dl (70-99(Fasting)); Lipase 26.0 U/L (11-82); Potassium 4.1 mmol/L (3.5-5.1); Sodium 136.0 mmol/L (136-145); Total Protein 6.6 gm/dl (6.0-8.3)
[2025-08-28 12:08] LABS: INR 1.0 (0.9-1.1); Partial Thromboplastin Time 23 Seconds (21-31); Prothrombin Time 10.5 Seconds (9.0-12.0)
--- NOTE | 2025-08-28 12:30 | Emergency Department Note ---
Impression & Plan Chest pain, Anemia, CAD (coronary atherosclerotic disease) ED Provider Note CHIEF COMPLAINT: Chest pain, shortness of breath HISTORY OF PRESENT ILLNESS: This 80-year-old male patient past medical history of biceps tendinitis, CAD status post CABG and stent placement, GERD presents to the emergency department after sudden onset of chest pain and shortness of breath while hanging drywall. Yesterday the patient woke up and was feeling some flulike symptoms. He stated he had some nasal congestion which is not uncommon for him. Today he felt that the symptoms had changed and he was exertionally short of breath. Patient states in 2021 he had undergone a quadruple bypass procedure and stent placement. He follows with cardiology in [place]. REVIEW OF SYSTEMS: A review of systems was performed with positives and pertinent negatives listed in the history of present illness. 10 systems were reviewed and are otherwise negative. ALLERGIES: see below MEDICATIONS: see below PMH: see below SOCIAL HISTORY: see below DDx: Acute coronary syndrome, dehydration, pneumonia, heart failure, anemia, PE among others. PHYSICAL EXAM: Vital signs reviewed. General: Well-appearing 80-year-old male, in no significant distress. HEENT: No scleral icterus, PERRLA, neck supple. Moist mucous membranes Cardiovascular: Regular rate and rhythm, no extra sounds. Pulmonary: Clear to auscultation bilaterally, normal work of breathing. Abdomen: Soft, nontender, nondistended, positive bowel sounds. Musculoskeletal: Atraumatic, no peripheral edema. Neurologic: Patient awake alert and oriented x 3, speech is clear Rectal: No external hemorrhoids appreciated. Stool is dark but guaiac negative. Skin: Warm, dry, no rash EMERGENCY DEPARTMENT COURSE/MDM: This patient was evaluated and appeared to be in no significant distress. IV access was obtained and laboratory work was drawn. Patient was placed on film historian and noted to be in normal sinus rhythm. Topical nitroglycerin was applied. EKG reveals no evidence of acute ischemic change. Laboratory work reveals a hemoglobin of 9.6 which is down from a baseline of 14.3, 1 year ago. Rectal exam was performed and stool was guaiac negative. Chest x-ray significant for pulmonary vascular congestion and 40 mg of IV Lasix was administered. Case was discussed with [facility] service who has agreed to evaluate the patient for admission and further management. Patient is aware of the plan and agrees. MONITORING: An order for cardiac monitoring was placed and the patient is noted to be in a normal sinus rhythm at 82 beats per minute. RADIOLOGY: Chest x-ray to my interpretation reveals evidence of cardiomegaly and pulmonary vascular congestion. EKG: To my interpretation reveals a normal sinus rhythm at 81 bpm. LVH. Possible previous anterior infarct, QTc of 464. 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 Surgical History S/P total knee replacement right TKA 11/2023 Hx of inguinal hernia repair History of cardiac cath Stent x1 (07/2022) History of coronary artery bypass graft 11/2021, [facility] History of esophagogastroduodenoscopy (EGD) History of colonoscopy [place] teeth removed History of tonsillectomy Family History Mother Family history of diabetes mellitus Daughter Family history of diabetes mellitus Other No family history of adverse response to anesthesia Social History Smoking Status: Never smoker Second Hand Exposure: No; Do You Dip or Chew Tobacco: No; Hx Alcohol Use: Yes Hx Substance Use: No Preferred Language: [place] Communication Ability: Effective [place] Required: No Beliefs That Will Affect Care: None Current Living Situation: Significant Other Current Living Situation Comment: WITH DAUGHTER Feels Safe at Home: Yes Assistive Devices: Cane, CPAP and Walker Allergies Allergies Allergy/AdvReac Type Severity Reaction Status Date / Time clarithromycin Allergy Mild Rash Verified 04/05/25 08:41 oxycodone AdvReac Severe constipatio Verified 04/05/25 08:41 n lisinopril AdvReac Mild Cough Verified 04/05/25 08:41 prednisone AdvReac Mild Gastrointestinal Verified 04/05/25 08:41 Upset Home Meds Home Medications Medication Instructions Recorded Confirmed gabapentin 100 mg capsule 100 mg PO TID 10/07/21 02/28/25 levothyroxine 75 mcg tablet 75 mcg PO QAM 10/07/21 02/28/25 metoprolol tartrate 50 mg tablet 50 mg PO BID 10/07/21 02/28/25 multivitamin 1 tab PO QAM 10/07/21 02/28/25 tamsulosin 0.4 mg capsule 0.4 mg PO QPM 10/07/21 02/28/25 clopidogrel 75 mg tablet 75 mg PO QAM 10/29/23 02/28/25 ezetimibe 10 mg tablet (Zetia) 10 mg PO QPM 10/29/23 02/28/25 atorvastatin 40 mg tablet 80 mg PO QPM 05/05/24 02/28/25 dapagliflozin propanediol 5 mg 5 mg PO QAM 05/05/24 02/28/25 tablet (Farxiga) flunisolide 25 mcg (0.025 %) nasal 2 spray intranasal BID 05/05/24 02/28/25 spray mecobalamin (vitamin B12) 2,500 2,500 mcg PO QAM 05/05/24 02/28/25 mcg chewable tablet montelukast 10 mg tablet 10 mg PO QAM 05/05/24 02/28/25 nitroglycerin 0.4 mg sublingual 0.4 mg sublingual Q5M PRN Chest 05/05/24 02/28/25 tablet Pain CPAP Machine 05/12/24 02/28/25 albuterol sulfate 90 mcg/actuation 2 puff inhalation Q6H PRN sob 05/12/24 02/28/25 aerosol inhaler cetirizine 10 mg tablet (Zyrtec) 10 mg PO DAILY PRN Congestion 05/12/24 02/28/25 ferric maltol 30 mg capsule 30 mg PO BID 05/12/24 02/28/25 (Accrufer) fluticasone propionate 50 2 spray intranasal DAILY 05/12/24 02/28/25 mcg/actuation nasal spray,suspension furosemide 20 mg tablet 20 mg PO DAILY PRN Edema 05/12/24 02/28/25 hydrocortisone acetate 25 mg 25 mg NJ DAILY PRN ud 05/12/24 02/28/25 rectal suppository (Anusol-HC) magnesium hydroxide 400 mg/5 mL 5 ml PO DAILY PRN ud 05/12/24 02/28/25 oral suspension (Milk of Magnesia) omeprazole 40 mg capsule,delayed 40 mg PO QAM 05/12/24 02/28/25 release polyethylene glycol 3350 17 17 g PO DAILY 05/12/24 02/28/25 gram/dose oral powder (Miralax) Previous Rx's Medication Instructions Recorded tramadol 50 mg tablet 50 mg PO Q6H PRN pain #30 tabs 10/11/24 famotidine 20 mg tablet (Pepcid) 20 mg PO .bid prn #90 tabs 01/11/25 Results & Data (ED) Vital Signs Vital Signs - 24 hr 08/28/25 11:15 08/28/25 11:34 08/28/25 11:34 Temperature 36.4 C L Temperature Source Temporal Artery Scan Pulse Rate 81 90 Pulse Rate [Apical] Respiratory Rate 18 Respiratory Effort / Characteristics Non-Labored Spontaneous Respiratory Depth Normal Respiratory Pattern Regular Blood Pressure 118/65 Blood Pressure [Right Arm] Blood Pressure Mean 82 Blood Pressure Mean [Right Arm] Pulse Oximetry 93 92 94 Oxygen Delivery Method Room Air Room Air Room Air Sepsis Recent Fever Within 48 Hours No Sepsis New/Unexplained Change in Mental Status N/A Sepsis Action Taken by Nursing No Action Required 08/28/25 11:53 08/28/25 13:30 08/28/25 14:30 Temperature Temperature Source Pulse Rate 82 Pulse Rate [Apical] 83 84 Respiratory Rate 16 16 Respiratory Effort / Characteristics Non-Labored Spontaneous Non-Labored Spontaneous Respiratory Depth Normal Normal Respiratory Pattern Regular Regular Blood Pressure Blood Pressure [Right Arm] 98/74 L 95/67 L Blood Pressure Mean Blood Pressure Mean [Right Arm] 82 76 Pulse Oximetry 92 91 Oxygen Delivery Method Room Air Room Air Sepsis Recent Fever Within 48 Hours Sepsis New/Unexplained Change in Mental Status Sepsis Action Taken by Long-Term Medications Current Medication List: was personally reviewed by me Laboratory Data Attestation: I reviewed the patient's lab results. 08/28/25 11:27 08/28/25 11:27 Lab Results 08/28/25 Range/Units 11:27 WBC 7.43 (4.8-10.8) K/ul RBC 3.74 L (4.70-6.10) M/uL Hgb 9.6 L (14.0-18.0) g/dL Hct 31.8 L (42.0-52.0) % MCV 85.0 (80.0-100.0) fL MCH 25.7 (25.0-34.0) pg MCHC 30.2 L (32.0-36.0) g/dL RDW Std Deviation 48.1 H (36.4-46.3) fL RDW Coeff of [place] 15.5 H (11.5-14.5) % Plt Count 457 H (130-400) K/uL MPV 9.3 L (9.4-12.4) fL Immature Gran % (Auto) 0.7 % Neut % (Auto) 71.8 % Lymph % (Auto) 11.7 % [place] % (Auto) 9.6 % Eos % (Auto) 5.5 % Baso % (Auto) 0.7 % Neut # (Auto) 5.34 (1.40-6.50) K/uL Lymph # (Auto) 0.87 L (1.20-3.40) K/uL [place] # (Auto) 0.71 H (0.11-0.59) K/uL Eos # (Auto) 0.41 (0.00-0.50) K/uL Baso # (Auto) 0.05 (0.00-0.20) K/uL Immature Gran # (Auto) 0.05 (0.01-0.20) K/uL PT 10.5 (9.0-12.0) Seconds INR 1.0 (0.9-1.1) APTT 23 (21-31) Seconds PTT Ratio 0.8 Sodium 136 (136-145) mmol/L Potassium 4.1 (3.5-5.1) mmol/L Chloride 106 (98-107) mmol/L Carbon Dioxide 22 (21-32) mmol/L Anion Gap 8 (3-11) BUN 20 (6-23) mg/dl Creatinine 1.01 (0.6-1.4) mg/dl Est Cr Clr Drug Dosing 61.7 ml/min eGFR 75.65 BUN/Creatinine Ratio 19.8 (10-20) Glucose 145 H (70-99(Fasting)) mg/dl Calcium 9.0 (8.6-10.3) mg/dl Total Bilirubin 0.4 (0.2-1.0) mg/dl AST 14 (13-39) U/L ALT 15 (7-52) U/L Alkaline Phosphatase 56 (34-104) U/L Troponin I High Sens 2.5 (0-20) pg/ml Total Protein 6.6 (6.0-8.3) gm/dl Albumin 4.1 (3.4-5.0) gm/dl Globulin 2.5 (2.5-4.0) gm/dl Albumin/Globulin Ratio 1.6 (0.9-2) Lipase 26 (11-82) U/L Administered Medications Discontinued Medications Aspirin (Aspirin Chew 324 Mg) 324 mg PO NOW STA Stop: 08/28/25 11:31 Last Admin: 08/28/25 11:40 Dose: 324 mg Documented By: JACKELIN Furosemide (Furosemide 40 Mg/4 Ml Vial) 40 mg IV ONE ONE Stop: 08/28/25 12:31 Last Admin: 08/28/25 12:41 Dose: 40 mg Documented By: JACKELIN Nitroglycerin (Nitroglycerin 2% Ointment 30gm Tube) 0.5 inch EXT NOW STA Stop: 08/28/25 11:31 Last Admin: 08/28/25 11:40 Dose: 0.5 inch Documented By: JACKELIN Imaging Data Radiologist's Impression: Chest X-Ray 08/28/25 11:30 XR chest 1V portable HISTORY: 80 years-old Male Chest pain, nonspecific COMPARISON: 11/05/2023 TECHNIQUE: AP view of the chest FINDINGS: Cardiac silhouette is enlarged. Median sternotomy wires are present. Pulmonary vascular congestion. No pneumothorax or large pleural effusion. Mild bibasilar densities favor atelectasis. Degenerative changes of the shoulders and spine. Surgical clips project over the left upper quadrant abdomen. IMPRESSION: Cardiomegaly with pulmonary vascular congestion. ACT 112: Negative or not required by law. The above report was generated using voice recognition software. It may contain grammatical, syntax or spelling errors. Electronically signed by: Bk Esposito M.D. 08/28/2025 11:47 AM Discharge Plan Visit Data Chief Complaint: Chest Pain Stated Complaint: CHEST PAIN ED Provider: Lorelei Barcenas Discharge Problem: Chest pain, Anemia, CAD (coronary atherosclerotic disease) Patient Disposition: Admitted As Inpatient Condition: Good Forms Stand Alone Forms: My [facility] Prescriptions Prescriptions: No Action atorvastatin 40 mg tablet 80 mg PO QPM flunisolide 25 mcg (0.025 %) spray,non-aerosol 2 spray intranasal BID montelukast 10 mg tablet 10 mg PO QAM nitroglycerin 0.4 mg tablet, sublingual 0.4 mg sublingual Q5M PRN (Reason: Chest Pain) Rx Instructions: do not exceed 3 doses per episode mecobalamin (vitamin B12) 2,500 mcg tablet,chewable 2,500 mcg PO QAM dapagliflozin propanediol [Farxiga] 5 mg tablet 5 mg PO QAM famotidine [Pepcid] 20 mg tablet 20 mg PO .bid prn Qty: 90 3RF cetirizine [Zyrtec] 10 mg tablet 10 mg PO DAILY PRN (Reason: Congestion) hydrocortisone acetate [Anusol-HC] 25 mg suppository 25 mg [place] DAILY PRN (Reason: ud) Accrufer 30 mg capsule 30 mg PO BID fluticasone propionate 50 mcg/actuation spray,suspension 2 spray intranasal DAILY Rx Instructions: administer into each nostril furosemide 20 mg tablet 20 mg PO DAILY PRN (Reason: Edema) omeprazole 40 mg capsule,delayed release(DR/EC) 40 mg PO QAM albuterol sulfate 90 mcg/actuation HFA aerosol inhaler 2 puff inhalation Q6H PRN (Reason: sob) (DME) CPAP Machine Misc See Rx Instructions .Route Rx Instructions: As directed polyethylene glycol 3350 [Miralax] 17 gram/dose powder 17 g PO DAILY magnesium hydroxide [Milk of Magnesia] 400 mg/5 mL suspension 5 ml PO DAILY PRN (Reason: ud) tramadol 50 mg tablet 50 mg PO Q6H PRN (Reason: pain) Qty: 30 0RF multivitamin Tablet 1 tab PO QAM levothyroxine 75 mcg Tablet 75 mcg PO QAM tamsulosin 0.4 mg Capsule 0.4 mg PO QPM metoprolol tartrate 50 mg Tablet 50 mg PO BID gabapentin 100 mg Capsule 100 mg PO TID clopidogrel 75 mg Tablet 75 mg PO QAM ezetimibe [Zetia] 10 mg Tablet 10 mg PO QPM Referrals Referrals: Xiomara Guzman PA-C [Primary Care Provider] - Discharge Problem: Chest pain Qualifiers: Chest pain type: precordial pain Qualified Code(s): R07.2 - Precordial pain Anemia Qualifiers: Anemia type: unspecified type Qualified Code(s): D64.9 - Anemia, unspecified CAD (coronary atherosclerotic disease) Qualifiers: Coronary Disease-Associated Artery/Lesion type: hoh artery [place] vs. transplanted heart: hoh heart Associated angina: with stable angina Qualified Code(s): I25.118 - Atherosclerotic heart disease of hoh coronary artery with other forms of angina pectoris
[2025-08-28] MEDS: FUROSEMIDE 40 MG/4 ML VIAL IV ONE (12:41)
--- NOTE | 2025-08-28 14:39 | Electrocardiogram Report ---
Test Reason : Blood Pressure : */* mmHG Vent. Rate : 81 BPM Atrial Rate : 81 BPM P-R Int : 176 ms QRS Dur : 86 ms QT Int : 400 ms P-R-T Axes : 10 -22 14 degrees QTcB Int : 464 ms Normal sinus rhythm Minimal voltage criteria for LVH, may be normal variant Poor R wave progression, consider anterior RI vs. lead placement vs. LVH Abnormal ECG When compared with ECG of 23-Aug-2024 11:25, No significant change was found Confirmed by Brandan Claudio ([id number]) on 08/28/2025 2:38:35 PM Referred By: Confirmed By: Brandan Claudio
--- NOTE | 2025-08-28 14:44 | History & Physical Report ---
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 Rates pain 7 out of 10 down to 3 after taking 3 SL nitro at home. In ER afebrile, P: 81, R: 18, BP 118/65, 93% on room air After Lasix and nitro BP dropped to 95/67 back up to 112/63 In ER Nitropaste applied and 324mg aspirin given Reports still with slight chest pain Troponin negative x 2 R/O ACS. Risk factors: CAD, HTN, HLD, obesity Monitor Vitals Repeat EKG in am Will trend troponin Echo NPO midnight Will hold on further nitro paste and monitor Continue home Plavix, atorvastatin, metoprolol tartrate Lipid, CBC, BMP, magnesium panel in am Cardiology consult Pt unsure of home medications. Unable to reach [facility] or [facility] at this [facility]. Home med list will need confirmed tomorrow # ?H/O CHF Patient unsure if h/o CHF. Prior med list has Farxiga listed. Pt thinks is taking it and is unsure if taking Lasix daily Confirm home meds tomorrow 02/23/2023 echo: EF: 50-55%, moderate concentric LVH In ER lasix 40mg IV given CXR: cardiomegaly, pulm vascular congestion however on exam patient appears more on dry side and is without LE edema and lungs clear on auscultation BNP: 20 Plan to hold further Lasix and monitor I's & O's Echo as above (3) Anemia: Plan: Hgb: 9.6 (was 14 on 08/23/24) In ER negative Hemoccult Obtain anemia panel Pt prior home med list has B12 and iron supplement Likely will require outpatient colonoscopy (4) Hypertension: Plan: Continue metoprolol tartrate (5) Hyperlipidemia: Plan: Continue atorvastatin, ezetimibe (6) Hypothyroidism: Plan: Continue levothyroxine (7) GERD (gastroesophageal reflux disease): Plan: Continue PPI (8) BPH (benign prostatic hyperplasia): Plan: Continue tamsulosin (9) Sleep apnea: Plan: Continue CPAP HS #Obesity BMI: 36 Pt reports was started on weight loss injection and unsure of name or dose. Has side effects of nausea, diarrhea and decreased oral intake for couple days after dose DVT Prophylaxis SCD for now Admit telemetry DNR/DNI as per discussion with pt Follows with [place] [facility] for routine care Pt was seen and care coordinated with Dr Harper. See addendum I spent a total of 65 minutes reviewing notes, outpatient records, labs, medication, coordinating, documenting and providing care for this patient excluding time spent in the performance of separately billed services and excluding time spent by another provider/QHP. History of Present Illness Chief Complaint: CP Primary Care Provider: Xiomara Guzman PA-C Patient is 80-year-old male with PMH CAD s/p CABG x 5 on 11/12/2021, s/p cardiac cath 07/18/2022 with Y graft to obtuse marginal branches occluded had successful PCI to marginal branch with [place], HTN, dyslipidemia, hypothyroidism, GERD, BPH, AMBER, obesity presented to ER with c/o CP today. 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 States while working on drywall this morning he was having some SOB. Reports CP 7 out of 10 on pain scale and took 1SL nitro and pain went down to 5. States proceeded to take 2 additional nitro with pain down to 3 out of 10. States in ER pain remains 3 out of 10. Reports feels "like a pulled muscle". Reports prior to his CABG he was having some CP however reports this CP is different and feels more muscular. Denies increased pain with movement or inspiration. He states he thought he may be dehydrated and drank some water. Denies any further dizziness. Denies having exertional CP or exertional SOB. Denies orthopnea. He reports 2 months ago started weight loss injection and the first couple of days after injection he has nausea and diarrhea and has poor oral intake. He states takes Pepto-Bismol for couple of days and symptoms resolve but does notice dark stools after taking Pepto-bismol. Reports has rhinorrhea chronically with chronic allergies and denies any increase rhinorrhea. Reports in past was on aspirin and Plavix and had rectal bleeding so decision made to continue Plavix only. Denies cough. Patient is unsure if history of CHF or anemia. Patient is unsure of his medications. Attempted to call PCPs office without response. Currently [facility] to [facility]. Of note prior med list listed iron supplement, B12 supplement, and Farxiga. Denies fever/chills, diaphoresis, hematochezia, hematemesis, ZIM[place], syncope, vision changes, neck pain, palpitations, sore throat, otalgia, abdominal pain, paresthesias, weakness, extremity edema, rashes, urinary symptoms. Allergies Allergy/AdvReac Type Severity Reaction Status Date / Time clarithromycin Allergy Mild Rash Verified 04/05/25 08:41 oxycodone AdvReac Severe constipatio Verified 04/05/25 08:41 n lisinopril AdvReac Mild Cough Verified 04/05/25 08:41 prednisone AdvReac Mild Gastrointestinal Verified 04/05/25 08:41 Upset Home Medications Medication Instructions Recorded Confirmed Type gabapentin 100 mg capsule 100 mg PO TID 10/07/21 08/28/25 History levothyroxine 75 mcg tablet 75 mcg PO QAM 10/07/21 08/28/25 History metoprolol tartrate 50 mg tablet 50 mg PO BID 10/07/21 08/28/25 History multivitamin 1 tab PO QAM 10/07/21 08/28/25 History tamsulosin 0.4 mg capsule 0.4 mg PO QPM 10/07/21 08/28/25 History clopidogrel 75 mg tablet 75 mg PO QAM 10/29/23 08/28/25 History ezetimibe 10 mg tablet (Zetia) 10 mg PO QPM 10/29/23 08/28/25 History dapagliflozin propanediol 5 mg 5 mg PO QAM 05/05/24 08/28/25 History tablet (Farxiga) flunisolide 25 mcg (0.025 %) nasal 2 spray intranasal BID 05/05/24 08/28/25 History spray mecobalamin (vitamin B12) 2,500 2,500 mcg PO QAM 05/05/24 08/28/25 History mcg chewable tablet montelukast 10 mg tablet 10 mg PO QAM 05/05/24 08/28/25 History nitroglycerin 0.4 mg sublingual 0.4 mg sublingual Q5M PRN Chest 05/05/24 08/28/25 History tablet Pain CPAP Machine 05/12/24 08/28/25 History albuterol sulfate 90 mcg/actuation 2 puff inhalation Q6H PRN sob 05/12/24 08/28/25 History aerosol inhaler cetirizine 10 mg tablet (Zyrtec) 10 mg PO DAILY PRN Congestion 05/12/24 08/28/25 History ferric maltol 30 mg capsule 30 mg PO BID 05/12/24 08/28/25 History (Accrufer) fluticasone propionate 50 2 spray intranasal DAILY 05/12/24 08/28/25 History mcg/actuation nasal spray,suspension furosemide 20 mg tablet 20 mg PO DAILY PRN Edema 05/12/24 08/28/25 History hydrocortisone acetate 25 mg 25 mg OK DAILY PRN ud 05/12/24 08/28/25 History rectal suppository (Anusol-HC) magnesium hydroxide 400 mg/5 mL 5 ml PO DAILY PRN ud 05/12/24 08/28/25 History oral suspension (Milk of Magnesia) omeprazole 40 mg capsule,delayed 40 mg PO QAM 05/12/24 08/28/25 History release polyethylene glycol 3350 17 17 g PO DAILY 05/12/24 08/28/25 History gram/dose oral powder (Miralax) tramadol 50 mg tablet 50 mg PO Q6H PRN pain #30 tabs 10/11/24 08/28/25 Rx famotidine 20 mg tablet (Pepcid) 20 mg PO .bid prn #90 tabs 01/11/25 08/28/25 Rx atorvastatin 80 mg tablet 80 mg PO HS 08/28/25 08/28/25 History Past Med/Surg History Problem List CAD (coronary atherosclerotic disease) (Acute) Anemia (Acute) Chest pain (Acute) Biceps tendinitis of right shoulder Leg edema, left Status post left knee replacement (~09/2024) Chronic diarrhea Heartburn Loose stools Status post right knee replacement (~11/2023) Osteoarthritis of right knee History of colon polyps Medical History Osteoarthritis of left knee Encounter for pre-operative examination 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 Surgical History S/P total knee replacement right TKA 11/2023 Hx of inguinal hernia repair History of cardiac cath Stent x1 (07/2022) History of coronary artery bypass graft 11/2021, [facility] History of esophagogastroduodenoscopy (EGD) History of colonoscopy [place] teeth removed History of tonsillectomy Family History Mother Family history of diabetes mellitus Daughter Family history of diabetes mellitus Other No family history of adverse response to anesthesia Social History Smoking Status: Never smoker Second Hand Exposure: No; Do You Dip or Chew Tobacco: No; Hx Alcohol Use: Yes Hx Substance Use: No Preferred Language: Tajik Communication Ability: Effective Optical Effects Layout Person Required: No Beliefs That Will Affect Care: None Current Living Situation: Significant Other Current Living Situation Comment: WITH DAUGHTER Feels Safe at Home: Yes Assistive Devices: Cane, CPAP and Walker Review of Systems Review of Systems: All systems reviewed & are unremarkable except as noted in HPI & below Physical Exam Physical Exam: General: no distress, obese elderly male Head: normocephalic, atraumatic Eyes: conjunctiva non-injected, anicteric ENT: normal inspection external ears, nose, mucous membranes dry Neck: supple, trachea midline Lungs: clear, no respiratory distress, no wheezing/rhonchi/rales CV: RRR, no pretibial edema, chest wall non-tender to palpation Abd: normal BS, soft, non-tender Ext: no cyanosis, no calf tenderness Neuro: A&O x 3, no focal deficits noted, normal affect Skin: warm, dry Results & Data Results & Data Vital Signs (Past 12 Hours) Vital Signs Temp Pulse Pulse Resp BP BP Pulse Ox 08/28/25 14:30 84 16 95/67 L 91 08/28/25 13:30 83 16 98/74 L 92 08/28/25 11:53 82 08/28/25 11:34 90 94 08/28/25 11:34 92 08/28/25 11:15 36.4 C L 81 18 118/65 93 O2 Del Method 08/28/25 14:30 Room Air 08/28/25 13:30 Room Air 08/28/25 11:53 08/28/25 11:34 Room Air 08/28/25 11:34 Room Air 08/28/25 11:15 Room Air Laboratory Results Short CBC 08/28/25 Range/Units 11:27 WBC 7.43 (4.8-10.8) K/ul Hgb 9.6 L (14.0-18.0) g/dL Hct 31.8 L (42.0-52.0) % Plt Count 457 H (130-400) K/uL BMP 08/28/25 11:27 Sodium 136 Potassium 4.1 Chloride 106 Carbon Dioxide 22 BUN 20 Creatinine 1.01 Glucose 145 H Calcium 9.0 Liver Function 08/28/25 Range/Units 11:27 Total Bilirubin 0.4 (0.2-1.0) mg/dl AST 14 (13-39) U/L ALT 15 (7-52) U/L Alkaline Phosphatase 56 (34-104) U/L Albumin 4.1 (3.4-5.0) gm/dl Diagnostic Findings Chest X-Ray 08/28/25 11:30 XR chest 1V portable HISTORY: 80 years-old Male Chest pain, nonspecific COMPARISON: 11/05/2023 TECHNIQUE: AP view of the chest FINDINGS: Cardiac silhouette is enlarged. Median sternotomy wires are present. Pulmonary vascular congestion. No pneumothorax or large pleural effusion. Mild bibasilar densities favor atelectasis. Degenerative changes of the shoulders and spine. Surgical clips project over the left upper quadrant abdomen. IMPRESSION: Cardiomegaly with pulmonary vascular congestion. ACT 112: Negative or not required by law. The above report was generated using voice recognition software. It may contain grammatical, syntax or spelling errors. Electronically signed by: Bk Esposito M.D. 08/28/2025 11:47 AM ECG Additional Comments: sinus rhythm, rate 81, T wave changes, Q waves anterior leads, No ST elevation per my interpretation Supervising Physician Co-Signing Physician Notes Patient seen and examined at bedside. Patient had chest pain while moving things today. Has had chest pain prior over past few weeks/months, this felt slightly different. On exam, no pitting edema, slightly dry mucous membranes, RRR. Hgb below baseline, denies bleeding, creatinine indicative of very mild AMY, chest xray with vascular congestion. EKG relatively unchanged from prior on my personal review, troponins WNL. Patient presenting with chest pain with movement with significant cardiac disease (bypass, occluded graft s/p stenting). Likely stable vs. unstable angina with chronic vessel occlusion. Check echo, cardiology consult, appreciate recs, will likely need cardiac cath on outpatient basis. Voltaren cream for consideration of costochondritis. Hold heparin given troponins WNL and no significant ECG changes. Check folic acid, B12, iron studies given drop in Hgb, denies bleeding, may need colonoscopy as outpatient. Suspect possible discharge in AM pending workup above. -iron deficiency anemia noted, give venofer, start PO iron on discharge, likely needs outpatient colonoscopy, trend CBC here -start B12 supplementation I have seen and discussed the case with the collaborating advanced practitioner. I agree with the above H&P. I have reviewed and confirmed the patients medical history, the findings on physical examination, and the patients diagnosis and treatment plan with Funmilayo Matta PA-C and agree with the information documented. I spent a total of 20 minutes coordinating, documenting, and providing care for this patient excluding time spent in the performance of separately billed services. All of the aforementioned completed outside of collaborating with the assigned advanced practitioner for a full treatment plan. I have reviewed the advanced practitioner's documentation, and I agree with, and take responsibility for the plan of care (1) Chest pain Chest pain type: precordial pain Qualified Code(s): R07.2 - Precordial pain (2) CAD (coronary atherosclerotic disease) Associated angina: with stable angina Coronary Disease-Associated Artery/Lesion type: [place] artery [place] vs. transplanted heart: [place] heart Qualified Code(s): I25.118 - Atherosclerotic heart disease of [place] coronary artery with other forms of angina pectoris (3) Anemia Anemia type: unspecified type Qualified Code(s): D64.9 - Anemia, unspecified
[2025-08-28 15:29] LABS: Iron 18 mcg/dl (35-175); Magnesium 2.3 mg/dl (1.7-2.4); Transferrin 306 mg/dl (200-360)
[2025-08-28 15:49] LABS: Ferritin 5.3 ng/ml (8-388)
[2025-08-28 16:03] LABS: Folate (Folic Acid),Ser orPlas > 22.30 ng/ml (>5.38)
[2025-08-28 16:04] LABS: Vitamin B12 224 pg/ml (180-914)
[2025-08-28] MEDS ORDERED: POLYETHYLENE (MIRALAX) 17 GM PACK PO PRN (17:12)
[2025-08-28] MEDS ORDERED: ONDANSETRON INJ 2 MG/ML 2 ML VIAL IV PRN (17:12)
[2025-08-28] MEDS ORDERED: CETIRIZINE HCL 10 MG TABLET PO PRN (17:12)
[2025-08-28] MEDS ORDERED: ACETAMINOPHEN 325 MG TAB PO PRN (17:12)
[2025-08-28] MEDS: IRON SUCROSE 300 MG in SODIUM CHLORIDE 0.9% 250 ML IV ONE (17:13)
[2025-08-28] MEDS: CYANOCOBALAMIN (B-12) 500 MCG TABLET PO ONE (17:14)
[2025-08-28] MEDS: DICLOFENAC SOD 1% GEL 100 GM TUBE EXT SCH (17:57)
--- NOTE | 2025-08-28 18:11 | XCELERA ---
[id number]
[2025-08-28] MEDS ORDERED: GABAPENTIN 100 MG CAP PO SCH (21:00)
[2025-08-28] MEDS: ATORVASTATIN 40 MG TAB PO SCH (21:48)
[2025-08-28] MEDS: METOPROLOL TARTRATE 50 MG TAB PO SCH (21:48)
[2025-08-28] MEDS: FAMOTIDINE 20 MG TAB PO SCH (21:48)
[2025-08-28] MEDS: EZETIMIBE 10 MG TAB PO SCH (21:48)
[2025-08-28] MEDS: GABAPENTIN 300 MG CAP PO SCH (21:48)
[2025-08-28] MEDS: TAMSULOSIN HCL 0.4 MG CAP PO SCH (21:50)
[2025-08-29 06:21] LABS: Hematocrit (blood only) 30.6 % (42.0-52.0); Hemoglobin 9.6 g/dL (14.0-18.0); Mean Corpuscular Hemoglobin 26.1 pg (25.0-34.0); Mean Corpuscular Volume 83.2 fL (80.0-100.0); Platelet Count 449 K/uL (130-400); RDW Standard Deviation 46.4 fL (36.4-46.3); Red Blood Count 3.68 M/uL (4.70-6.10); White Blood Count 8.83 K/ul (4.8-10.8)
[2025-08-29] MEDS ORDERED: LEVOTHYROXINE SODIUM 75 MCG TABLET PO SCH (06:30)
[2025-08-29 06:46] LABS: Anion Gap 8.0 (3-11); Blood Urea Nitrogen 23.0 mg/dl (6-23); Calcium 8.8 mg/dl (8.6-10.3); Carbon Dioxide 23.0 mmol/L (21-32); Chloride 107.0 mmol/L (98-107); Cholesterol 123.0 mg/dl (0-200); Creatinine Clr Calc Pharmacy 66.2 ml/min; Glucose 96.0 mg/dl (70-99(Fasting)); HDL Cholesterol 34.0 mg/dl; Magnesium 2.3 mg/dl (1.7-2.4); Potassium 4.2 mmol/L (3.5-5.1); Sodium 138.0 mmol/L (136-145); Triglycerides 281.0 mg/dl (0-150)
[2025-08-29 07:54] LABS: Hemoglobin A1C 6.0 % (4.5-5.6)
[2025-08-29] MEDS ORDERED: POLYETHYLENE (MIRALAX) 17 GM PACK PO SCH (09:00)
[2025-08-29 09:04] VITALS: RESP 17; TEMP 97.3; O2SAT 90
[2025-08-29] MEDS: CLOPIDOGREL BISULFATE 75 MG TAB PO SCH (09:43)
[2025-08-29] MEDS: CYANOCOBALAMIN (B-12) 500 MCG TABLET PO SCH (09:43)
[2025-08-29] MEDS: FLUTICASONE PROPIONATE NA SPR 16 GM BTL NAE SCH (09:44)
[2025-08-29] MEDS: MONTELUKAST SODIUM 10 MG TABLET PO SCH (09:45)
[2025-08-29] MEDS: LEVOTHYROXINE SODIUM 88 MCG TABLET PO SCH (09:45)
[2025-08-29] MEDS: MULTIVITAMIN CHEWABLE TAB PO SCH (09:46)
[2025-08-29] MEDS: SERTRALINE HCL 50 MG TABLET PO SCH (09:46)
--- NOTE | 2025-08-29 09:46 | Cardiology Consultation ---
Date of Consultation August 29, 2025 Assessment & Plan (1) Anemia: (2) Atypical chest pain: (3) Dizziness: (4) CAD (coronary atherosclerotic disease): Plan Patient is a 80 year old male with history of CAD s/p CABG x 5 in 2021 with repeat stent to the vein graft approx 6 months later, following with [facility] Cardiology, admitted with complaints of dizziness, atypical chest pain, and SOB along with fatigue. Since admission, HS troponin has been negative x3. EKG demonstrating NSR without acute ischemic changes. Echo revealed normal LVEF, no wall motion abnormalities or significant valvular disease. There was mild pulm vascular congestion on chest xray and he was treated with one dose IV lasix. At time of consult, no recurrent chest pain. SOB improved. BP controlled Only significant finding on admission was hbg of 9.6. Last known hbg was 14 about 1 year ago. He notes significant hemorrhoidal and GI bleeding over the last few days. He also notes significant loose stools with his weight loss medication. Iron levels low and IV Iron was supplemented. Hbg stable at 9.6 this morning. Would recommend further evaluation with GI and or surgery for hemorrhoids (Inpatient vs outpatient) Needs to continue antiplatelet therapy with either ASA or Plavix given history of CABG and [place] in 2021. Does not appear he was taking dual antiplatelet therapy on admission, but med list was not verified. Continue ASA OR plavix. Continue metoprolol and furosemide Continue statin. No further cardiac testing warranted at this time. Defer further work up of anemia and hemorrhoids to hospitalist. 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 Case discussed with Dr. Osorio I spent a total of 60 minutes on the date of service in preparation, delivery, and documentation of the care provided to this patient, excluding any time spent in the performance of separately billed services. Mine Whitt PA-C Department of Cardiology, [facility] This chart was completed in part utilizing Speech Voice Recognition Software. Grammatical errors, random word insertions, pronoun errors, and incomplete sentences are an occasional consequence of this system due to software limitations, ambient noise, and hardware issues. Any formal questions or concerns about the content, text, or information contained within the body of this dictation should be directly addressed to the provider for clarification. Supervising Physician Co-Signing Physician Notes Patient seen and examined. Past medical history, surgical history, social history and family history have been reviewed. The medical record and all the above studies have been reviewed. Case DW DARSHAN including management. As per patient he has had bleeding from his hemorrhoids for a few days which stopped 2 days ago. He has had frequent BRBPR about once a month since the past few months. His symptoms of GONZALEZ ans dizziness have increased in the past few weeks. Acute blood loss anemia Dizziness Dyspnea on exertion Chest Pain - atypical, MT R/O CAD S/P CABG Patient's symptoms likely due to ABLA Recommend: GI consult f/u H/H ASA or Plavix if ok from bleeding standpoint adjust anti-HTN meds keeping systolic BP between 100-140 mmHg avoid hypovolemia keep patient euvolemic DVT prophylaxis please reconsult if needed Will sign off History of Present Illness Reason for Consultation: Dizziness; Fatigue; Atypical chest pain Requesting Physician: Christie Hospitalist Attending Physician: Dr. Osorio History of Present Illness Patient is a 80 year old male who presented to [facility] yesterday afternoon with co mplaints of dizziness, fatigue, SOB, and mild chest "ache". He was hanging drywall and sanding when symptoms started. Began as lightheadedness. He sat down to take a break and symptoms improved. He resumed his activities and once again noted fatigue, dizziness and mild chest tightness described as a "pulled muscle". He tried taking 3 SL nitro without significant improvement. Due to his cardiac history he came to the ER for evaluation. Upon arrival, EKG demonstrated NSR, no acute ischemic findings. HS troponin negative x3 since admission. Mild pulm vascular congestion noted on chest xray, so he was given dose of IV Lasix. He notes frequent urination with the lasix and interval improvement in his SOB. He reports compliance with home diuretic. He reports no recent anginal symptoms. No exertional chest pain or SOB. No need for SL nitro on a regular basis. No orthopnea, PND. he admits to SOB with activities. No fever, cough, chills. No edema. He admits to significant hemorrhoidal bleeding that comes adn goes. He notes "excessive bleeding" the last few days. Hbg was low on admission at 9.6. Iron levels low and received IV iron. He follows with outpatient with Cardiology at [facility]. Patient has a significant cardiac history includin. CAD s/p CABG x 5 on 11/12/2021, s/p cardiac cath 07/18/2022 with Y graft to obtuse marginal branches occluded - he had successful PCI to marginal branch with [place] at that time. No interventions needed since 2021. 2. HTN 3. dyslipidemia 4. hypothyroidism 5. GERD 6. AMBER Allergies Allergy/AdvReac Type Severity Reaction Status Date / Time clarithromycin Allergy Mild Rash Verified 04/05/25 08:41 oxycodone AdvReac Severe constipatio Verified 04/05/25 08:41 n lisinopril AdvReac Mild Cough Verified 04/05/25 08:41 prednisone AdvReac Mild Gastrointestinal Verified 04/05/25 08:41 Upset Home Medications Medication Instructions Recorded Confirmed Type metoprolol tartrate 50 mg tablet 50 mg PO BID 10/07/21 08/28/25 History multivitamin 1 tab PO QAM 10/07/21 08/28/25 History tamsulosin 0.4 mg capsule 0.4 mg PO QPM 10/07/21 08/28/25 History clopidogrel 75 mg tablet 75 mg PO QAM 10/29/23 08/28/25 History ezetimibe 10 mg tablet (Zetia) 10 mg PO QPM 10/29/23 08/28/25 History dapagliflozin propanediol 5 mg 10 mg PO QAM 05/05/24 08/29/25 History tablet (Farxiga) flunisolide 25 mcg (0.025 %) nasal 2 spray intranasal BID 05/05/24 08/28/25 History spray montelukast 10 mg tablet 10 mg PO QAM 05/05/24 08/28/25 History nitroglycerin 0.4 mg sublingual 0.4 mg sublingual Q5M PRN Chest 05/05/24 08/28/25 History tablet Pain CPAP Machine 05/12/24 08/28/25 History albuterol sulfate 90 mcg/actuation 2 puff inhalation Q6H PRN sob 05/12/24 08/28/25 History aerosol inhaler famotidine 20 mg tablet (Pepcid) 20 mg PO .bid prn #90 tabs 01/11/25 08/28/25 Rx atorvastatin 80 mg tablet 80 mg PO HS 08/28/25 08/28/25 History bisacodyl 5 mg tablet,delayed 5 mg PO HS 08/28/25 08/28/25 History release cyanocobalamin (vitamin B-12) 500 1,000 mcg sublingual DAILY 08/28/25 08/28/25 History mcg sublingual tablet gabapentin 300 mg capsule 300 mg PO TID 08/28/25 08/28/25 History levocetirizine 5 mg tablet 5 mg PO DAILY 08/28/25 08/28/25 History levothyroxine 88 mcg tablet 88 mcg PO DAILY 08/28/25 08/28/25 History lidocaine 5 % topical patch 1 patch topical Q12H 08/28/25 08/28/25 History pantoprazole 40 mg tablet,delayed 40 mg PO DAILY 08/28/25 08/28/25 History release sertraline 25 mg tablet 25 mg PO DAILY 08/28/25 08/28/25 History tirzepatide (weight loss) 7.5 7.5 mg subcut WK 08/28/25 08/28/25 History mg/0.5 mL subcutaneous pen injector docusate sodium 100 mg capsule 100 mg PO BID #30 caps 08/29/25 Rx ferrous sulfate 325 mg (65 mg 325 mg PO DAILY #30 tabs 08/29/25 Rx iron) tablet furosemide 20 mg tablet 20 mg PO MOWEFR #20 tabs 08/29/25 Rx hydrocortisone acetate 25 mg 25 mg WI DAILY 2 weeks #12 ea 08/29/25 Rx rectal suppository (Anusol-HC) Patient History Medical History Osteoarthritis of left knee Encounter for pre-operative examination History of poliomyelitis 1950-pt denies residual complications Hx of migraines Contact dermatitis Sleep apnea on CPAP-compliant History of blood transfusion during CABG (11/2021) Coronary artery disease CABG x 5 (11/2021) Stent x1 to OM (07/2022) BPH (benign prostatic hyperplasia) GERD (gastroesophageal reflux disease) controlled, stable per pt Hypothyroidism Hypertension controlled, stable per pt Hyperlipidemia Seasonal allergies Asthma controlled, stable per pt; last rescue inhaler use early may 2024. Surgical History S/P total knee replacement right TKA 11/2023 Hx of inguinal hernia repair History of cardiac cath Stent x1 (07/2022) History of coronary artery bypass graft 11/2021, Andre [facility] History of esophagogastroduodenoscopy (EGD) History of colonoscopy Mcneal teeth removed History of tonsillectomy Family History Mother Family history of diabetes mellitus Daughter Family history of diabetes mellitus Other No family history of adverse response to anesthesia Social History Smoking Status: Never smoker Second Hand Exposure: No; Do You Dip or Chew Tobacco: No; Hx Alcohol Use: No Hx Substance Use: No Preferred Language: Pakistani Communication Ability: Effective Medical Billing And Coding Specialist Required: No Beliefs That Will Affect Care: None Current Living Situation: Alone Current Living Situation Comment: daughter local for assist Feels Safe at Home: Yes Assistive Devices: None Review of Systems Review of Systems: All systems reviewed & are unremarkable except as noted in HPI & below Physical Exam Constitutional: WD/WN, vitals as above no acute distress Neck: trachea midline, no thyromegaly Respiratory: normal respiratory effort; no labored breathing Auscultation: + diminished lung sounds; no crackles and no rales Cardiovascular: Rate/Rhythm: regular rate and regular rhythm Heart Sounds: normal S1 and normal S2; no murmur Vessels: no JVD Extremities: no edema Gastrointestinal (Abdomen): normal bowel sounds, soft, nontender, no hepatosplenomegaly Neurologic: PERRL, EOMI, accommodation nl, no face palsy, no dysarthria Results & Data Vital Signs (Past 12 Hours) Vital Signs Temp Pulse Pulse Resp BP Pulse Ox O2 Del Method 08/29/25 09:03 36.3 C L 83 17 127/78 90 Room Air 08/29/25 07:42 88 08/29/25 04:14 81 20 139/74 92 BiPAP 08/29/25 03:43 82 14 95 08/28/25 22:50 88 20 149/75 H 91 BiPAP 08/28/25 22:06 86 19 94 Laboratory Results Cardiac Enzymes 08/28/25 08/28/25 08/28/25 Range/Units 11:27 15:00 21:03 AST 14 (13-39) U/L Troponin I High Sens 2.5 < 2.3 3.0 (0-20) pg/ml B-Natriuretic Peptide 20 (0-100) pg/ml Coagulation 08/28/25 Range/Units 11:27 PT 10.5 (9.0-12.0) Seconds APTT 23 (21-31) Seconds B-Natriuretic Peptide 20 (0-100) pg/ml Lipids 08/29/25 Range/Units 05:46 Triglycerides 281 H (0-150) mg/dl Cholesterol 123 (0-200) mg/dl HDL Cholesterol 34 mg/dl Cholesterol/HDL Ratio 3.6 (0-5) CBC 08/28/25 08/29/25 Range/Units 11:27 05:46 WBC 7.43 8.83 (4.8-10.8) K/ul RBC 3.74 L 3.68 L (4.70-6.10) M/uL Hgb 9.6 L 9.6 L (14.0-18.0) g/dL Hct 31.8 L 30.6 L (42.0-52.0) % Plt Count 457 H 449 H (130-400) K/uL Neut # (Auto) 5.34 (1.40-6.50) K/uL Lymph # (Auto) 0.87 L (1.20-3.40) K/uL [place] # (Auto) 0.71 H (0.11-0.59) K/uL Eos # (Auto) 0.41 (0.00-0.50) K/uL Baso # (Auto) 0.05 (0.00-0.20) K/uL Comprehensive Metabolic Panel 08/28/25 08/29/25 Range/Units 11:27 05:46 Sodium 136 138 (136-145) mmol/L Potassium 4.1 4.2 (3.5-5.1) mmol/L Chloride 106 107 (98-107) mmol/L Carbon Dioxide 22 23 (21-32) mmol/L BUN 20 23 (6-23) mg/dl Creatinine 1.01 0.94 (0.6-1.4) mg/dl Glucose 145 H 96 (70-99(Fasting)) mg/dl Calcium 9.0 8.8 (8.6-10.3) mg/dl AST 14 (13-39) U/L ALT 15 (7-52) U/L Alkaline Phosphatase 56 (34-104) U/L Total Protein 6.6 (6.0-8.3) gm/dl Albumin 4.1 (3.4-5.0) gm/dl Intake and Output 08/28/25 08/29/25 08/29/25 22:59 06:59 14:59 Intake Total 415 / 415 Output Total 600 / 1150 400 / 400 Balance -185 / -735 -400 / -400 Intake: IV 265 / 265 Iron Sucrose 300 mg In Sodium 265 / 265 Chloride 0.9% 250 ml @ 176.667 mls/hr IV TODAY ONE Rx#: [id number] Oral 150 / 150 Output: Urine 600 / 1150 400 / 400 Other: Other Intake Source npo Weight 95.1 kg 94.8 kg Weight Measurement Method Chair Scale [facility] Diagnostic Findings Telemetry reviewed: NSR in the 70-80's. no arrhythmias EKG reviewed from admission 08/28/25: NSR voltage criteria for LVH Poor R wave progression No significant change from previous in Aug 2024 Echo report reviewed from 08/28/25: Normal LVEF at 60-65% Grade I diastolic dysfunction Mild Mild MR Mild pulmonic valvular regurgitation Mild TR Chest X-Ray 08/28/25 11:30 XR chest 1V portable HISTORY: 80 years-old Male Chest pain, nonspecific COMPARISON: 11/05/2023 TECHNIQUE: AP view of the chest FINDINGS: Cardiac silhouette is enlarged. Median sternotomy wires are present. Pulmonary vascular congestion. No pneumothorax or large pleural effusion. Mild bibasilar densities favor atelectasis. Degenerative changes of the shoulders and spine. Surgical clips project over the left upper quadrant abdomen. IMPRESSION: Cardiomegaly with pulmonary vascular congestion. ACT 112: Negative or not required by law. The above report was generated using voice recognition software. It may contain grammatical, syntax or spelling errors. Electronically signed by: Bk Esposito M.D. 08/28/2025 11:47 AM Prior outpatient data reviewed: Echo report from March 2023 at [facility] 1. Normal global function of the left ventricle. 2. LV ejection fraction is 55 - 60%. 3. No left ventricular regional wall motion abnormalities. 4. Normal right ventricular size and systolic function. 5. Severely dilated left atrium by LA volume index calculation. 6. No pericardial effusion is seen. Medications Administered Current Inpatient Medications Acetaminophen (Acetaminophen 325 Mg Tab) 650 mg PO Q4H PRN PRN Reason: Pain or Fever Stop: 09/27/25 17:11 Atorvastatin Calcium (Atorvastatin 40 Mg Tab) 80 mg PO HS [facility] Stop: 09/27/25 20:59 Last Admin: 08/28/25 21:48 Dose: 80 mg Bisacodyl (Bisacodyl 5 Mg Tabec) 5 mg PO HS [facility] Stop: 09/27/25 20:59 Last Admin: 08/28/25 21:53 Dose: 5 mg Cetirizine HCl (Cetirizine Hcl 10 Mg Tablet) 10 mg PO DAILY PRN PRN Reason: Congestion Stop: 09/27/25 17:11 Clopidogrel Bisulfate (Clopidogrel Bisulfate 75 Mg Tab) [facility] [place]: 09/28/25 08:59 Last Admin: 08/29/25 09:43 Dose: 75 mg Cyanocobalamin (Cyanocobalamin (B-12) 500 Mcg Tablet) 1,000 mcg PO [facility] Stop: 09/28/25 08:59 Last Admin: 08/29/25 09:43 Dose: 1,000 mcg Diclofenac Sodium (Diclofenac Sod 1% Gel 100 Gm Tube) 2 gm EXT Q6H [facility]; Protocol Stop: 09/27/25 17:29 Last Admin: 08/29/25 05:52 Dose: Not Given Ezetimibe (Ezetimibe 10 Mg Tab) 10 mg PO QPM [facility] Stop: 09/27/25 20:59 Last Admin: 08/28/25 21:48 Dose: 10 mg Famotidine (Famotidine 20 Mg Tab) 20 mg PO BID [facility] Stop: 09/27/25 20:59 Last Admin: 08/29/25 09:45 Dose: 20 mg Fluticasone Propionate (Fluticasone Propionate Na Spr 16 Gm Btl) 2 sprays DIANA DAILY [facility] Stop: 09/28/25 08:59 Last Admin: 08/29/25 09:44 Dose: 2 sprays Gabapentin (Gabapentin 300 Mg Cap) 300 mg PO TID [facility] Stop: 09/27/25 20:59 Last Admin: 08/29/25 09:45 Dose: 300 mg Levothyroxine Sodium (Levothyroxine Sodium 88 Mcg Tablet) 88 mcg PO DAILY [facility] Stop: 09/28/25 08:59 Last Admin: 08/29/25 09:45 Dose: 88 mcg Metoprolol Tartrate (Metoprolol Tartrate 50 Mg Tab) 50 mg PO BID [facility] Stop: 09/27/25 20:59 Last Admin: 08/29/25 09:45 Dose: 50 mg Miscellaneous (Order Awaiting Action (Dapagliflozin Propanediol [Farxiga] 5 Mg Tablet)) 1 each N/A QS [facility] Stop: 09/28/25 00:00 Last Admin: 08/29/25 09:39 Dose: Not Given Montelukast Sodium (Montelukast Sodium 10 Mg Tablet) 10 mg PO QAM [facility] Stop: 09/28/25 08:59 Last Admin: 08/29/25 09:45 Dose: 10 mg Multivitamins/Folic Acid/Vitamin C (Multivitamin Chewable Tab) 1 tab PO QAM [facility] Stop: 09/28/25 08:59 Last Admin: 08/29/25 09:46 Dose: 1 tab Ondansetron HCl (Ondansetron Inj 2 Mg/Ml 2 Ml Vial) 4 mg IV Q6H PRN PRN Reason: Nausea Stop: 09/27/25 17:11 Pantoprazole Sodium (Pantoprazole 40 Mg Tab) 40 mg PO QAM [facility] Stop: 09/28/25 08:59 Last Admin: 08/29/25 09:46 Dose: 40 mg Polyethylene Glycol (Polyethylene (Miralax) 17 Gm Pack) 17 gm PO DAILY PRN PRN Reason: Constipation Stop: 09/27/25 17:11 Sertraline HCl (Sertraline Hcl 50 Mg Tablet) 25 mg PO DAILY [facility] Stop: 09/28/25 08:59 Last Admin: 08/29/25 09:46 Dose: 25 mg Tamsulosin HCl (Tamsulosin Hcl 0.4 Mg Cap) 0.4 mg PO QPM [facility] Stop: 09/27/25 20:59 Last Admin: 08/28/25 21:50 Dose: 0.4 mg PG Care Time/CCT Total # of Minutes Spent Total Time Spent with Patient: Total time spent is greater than 50% in coordination of care (as documented) at patient's floor/unit and/or counseling patient: 60 minutes Coding Level of Care Code 28423 INT INP/OBS CARE 3/75MIN Diagnoses Anemia D64.9 Anemia type: unspecified type Atypical chest pain R07.89 Dizziness R42 CAD (coronary atherosclerotic disease) I25.118 Associated angina: with stable angina Coronary Disease-Associated Artery/Lesion type: [place] artery [place] vs. transplanted heart: [place] heart (1) Anemia Anemia type: unspecified type Qualified Code(s): D64.9 - Anemia, unspecified (4) CAD (coronary atherosclerotic disease) Associated angina: with stable angina Coronary Disease-Associated Artery/Lesion type: [place] artery [place] vs. transplanted heart: [place] heart Qualified Code(s): I25.118 - Atherosclerotic heart disease of [place] coronary artery with other forms of angina pectoris
--- NOTE | 2025-08-29 12:44 | Discharge Summary ---
Discharge Summary Date of Service August 29, 2025 Principal Dx & Hospital Course #1 = Principal Diagnosis (1) Chest pain: (2) CAD (coronary atherosclerotic disease): (3) Anemia: (4) Hypertension: (5) Hyperlipidemia: (6) Hypothyroidism: (7) GERD (gastroesophageal reflux disease): (8) BPH (benign prostatic hyperplasia): (9) Sleep apnea: Plan Patient is 80-year-old male with PMH CAD s/p CABG x 5 on 11/12/2021, s/p cardiac cath 07/18/2022 with Y graft to obtuse marginal branches occluded had successful PCI to marginal branch with [place], HTN, dyslipidemia, hypothyroidism, GERD, BPH, AMBER, obesity presented to ER on 08/28/2025 with c/o CP, 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 Musculoskeletal chest pain CAD s/p CABG and [place] in 2021 Patient developed chest pain with associated SOB and dizziness while putting up dry wall and came to ED after taking 3 doses of nitroglycerin Given 324mg ASA and nitropaste in ED EKG revealed NSR Troponin negative x3 Echo revealed EF 60-65%, grade 1 diastolic dysfunction, mild , mild MR, mild pulmonic valve regurg, mild TR-> stable compared to prior echo CXR noted cardiomegaly and pulmonary vascular congestion-> given one dose of lasix in ED despite appearing hypovolemic by admitting provider Chest pain resolved and felt to be musculoskeletal in nature Evaluated by Cardiology who did not recommend further cardiac testing Continue home Plavix, metoprolol, atorvastatin Cardiology recommends lasix 20mg PO // only Iron deficiency anemia Rectal hemorrhoids Patient reports rectal bleeding x4 days related to chronic hemorrhoids Negative Hemoccult Hgb 9.6 (was 14 on 08/23/24) Iron 18, TIBC 388, ferritin 5.3 consistent with LIS Received IV iron x1 dose and started on ferrous sulfate 325mg daily Discharged with Anusol suppositories Recommend outpatient colonoscopy to further evaluate rectal bleeding/hemorrhoids Hyperlipidemia Lipid panel revealed Chol 123, LDL 33, HDL 34, TG 281 Continue atorvastatin and ezetimibe Prediabetes A1C 6.0% Advise lifestyle modifications and follow up with PCP Hypertension Continue metoprolol tartrate Hypothyroidism Continue levothyroxine GERD Continue pantoprazole and pepcid PRN BPH Continue tamsulosin Sleep apnea Continue CPAP HS Patient seen in collaboration with Dr. Etienne. Please see addendum. Notes For Next Care Provider 80 year old male with significant PMH who was admitted at [facility] from 08/28- 08/29/2025 for chest pain. Cardiac workup unremarkable and pain thought to be musculoskeletal in nature. Patient reported rectal bleeding due to hemorrhoids and was found to be iron deficient with anemia. Started on ferrous sulfate. Rec ommend outpatient colonoscopy for further evaluation. Medication Changes From Visit Start Furosemide (Lasix) 20mg by mouth once daily on Thursday, Thursday, and Thursday only Start Ferrous Sulfate (Iron) 325mg by mouth once daily - take Docusate (Colace), stool softener, as needed for constipation Start Anusol rectal suppositories for hemorrhoids Admission HPI Per Admitting Provider Patient is 80-year-old male with PMH CAD s/p CABG x 5 on 11/12/2021, s/p cardiac cath 07/18/2022 with Y graft to obtuse marginal branches occluded had successful PCI to marginal branch with [place], HTN, dyslipidemia, hypothyroidism, GERD, BPH, AMBER, obesity presented to ER with c/o CP today. 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 States while working on [employer] this morning he was having some SOB. Reports CP 7 out of 10 on pain scale and took 1SL nitro and pain went down to 5. States proceeded to take 2 additional nitro with pain down to 3 out of 10. States in ER pain remains 3 out of 10. Reports feels "like a pulled muscle". Reports prior to his CABG he was having some CP however reports this CP is different and feels more muscular. Denies increased pain with movement or inspiration. He states he thought he may be dehydrated and drank some water. Denies any further dizziness. Denies having exertional CP or exertional SOB. Denies orthopnea. He reports 2 months ago started weight loss injection and the first couple of days after injection he has nausea and diarrhea and has poor oral intake. He states takes Pepto-Bismol for couple of days and symptoms resolve but does notice dark stools after taking Pepto-bismol. Reports has rhinorrhea chronically with chronic allergies and denies any increase rhinorrhea. Reports in past was on aspirin and Plavix and had rectal bleeding so decision made to continue Plavix only. Denies cough. Patient is unsure if history of CHF or anemia. Patient is unsure of his medications. Attempted to call PCPs office without response. Currently unable to contact [facility] to confirm medications. Of note prior med list listed iron supplement, B12 supplement, and Farxiga. Denies fever/chills, diaphoresis, hematochezia, hematemesis, ZIMMER, syncope, vision changes, neck pain, palpitations, sore throat, otalgia, abdominal pain, paresthesias, weakness, extremity edema, rashes, urinary symptoms. Admission Exam Per Admitting Provider General: no distress, obese elderly male Head: normocephalic, atraumatic Eyes: conjunctiva non-injected, anicteric ENT: normal inspection external ears, nose, mucous membranes dry Neck: supple, trachea midline Lungs: clear, no respiratory distress, no wheezing/rhonchi/rales CV: RRR, no pretibial edema, chest wall non-tender to palpation Abd: normal BS, soft, non-tender Ext: no cyanosis, no calf tenderness Neuro: A&O x 3, no focal deficits noted, normal affect Skin: warm, dry Discharge Exam General/Psych: elderly, sitting up in bed, NAD, conversing easily Head: normocephalic, atraumatic Eyes: normal inspection, PERRL, conjunctivae pink Neck: normal visual inspection, trachea midline Respiratory: normal respiratory effort, lungs clear to auscultation, no wheeze/rales/rhonchi, no accessory muscle use Cardiovascular: regular rate and rhythm, no murmur/rub/gallop Extremities: no cyanosis or clubbing, normal peripheral pulses, no BLE edema Abdomen/GI: normal bowel sounds, soft, nontender Neurologic/MSK: A+Ox3, motor strength 5/5, moves all extremities Skin: no rashes, normal color, warm and dry Updated Medication List Medication Instructions Recorded Confirmed Type metoprolol tartrate 50 mg tablet 50 mg PO BID 10/07/21 08/28/25 History multivitamin 1 tab PO QAM 10/07/21 08/28/25 History tamsulosin 0.4 mg capsule 0.4 mg PO QPM 10/07/21 08/28/25 History clopidogrel 75 mg tablet 75 mg PO QAM 10/29/23 08/28/25 History ezetimibe 10 mg tablet (Zetia) 10 mg PO QPM 10/29/23 08/28/25 History dapagliflozin propanediol 5 mg 10 mg PO QAM 05/05/24 08/29/25 History tablet (Farxiga) flunisolide 25 mcg (0.025 %) nasal 2 spray intranasal BID 05/05/24 08/28/25 History spray montelukast 10 mg tablet 10 mg PO QAM 05/05/24 08/28/25 History nitroglycerin 0.4 mg sublingual 0.4 mg sublingual Q5M PRN Chest 05/05/24 08/28/25 History tablet Pain CPAP Machine 05/12/24 08/28/25 History albuterol sulfate 90 mcg/actuation 2 puff inhalation Q6H PRN sob 05/12/24 08/28/25 History aerosol inhaler famotidine 20 mg tablet (Pepcid) 20 mg PO .bid prn #90 tabs 01/11/25 08/28/25 Rx atorvastatin 80 mg tablet 80 mg PO HS 08/28/25 08/28/25 History bisacodyl 5 mg tablet,delayed 5 mg PO HS 08/28/25 08/28/25 History release cyanocobalamin (vitamin B-12) 500 1,000 mcg sublingual DAILY 08/28/25 08/28/25 History mcg sublingual tablet gabapentin 300 mg capsule 300 mg PO TID 08/28/25 08/28/25 History levocetirizine 5 mg tablet 5 mg PO DAILY 08/28/25 08/28/25 History levothyroxine 88 mcg tablet 88 mcg PO DAILY 08/28/25 08/28/25 History lidocaine 5 % topical patch 1 patch topical Q12H 08/28/25 08/28/25 History pantoprazole 40 mg tablet,delayed 40 mg PO DAILY 08/28/25 08/28/25 History release sertraline 25 mg tablet 25 mg PO DAILY 08/28/25 08/28/25 History tirzepatide (weight loss) 7.5 7.5 mg subcut WK 08/28/25 08/28/25 History mg/0.5 mL subcutaneous pen injector docusate sodium 100 mg capsule 100 mg PO BID #30 caps 08/29/25 Rx ferrous sulfate 325 mg (65 mg 325 mg PO DAILY #30 tabs 08/29/25 Rx iron) tablet furosemide 20 mg tablet 20 mg PO MOWEFR #20 tabs 08/29/25 Rx hydrocortisone acetate 25 mg 25 mg UT DAILY 2 weeks #12 ea 08/29/25 Rx rectal suppository (Anusol-HC) Hospital Stay Data Consultations 08/28/25 14:48 ED Decision to Admit Stat 08/28/25 15:24 Consult Cardiology Routine Diagnostic Imagining Performed Chest X-Ray 08/28/25 11:30 XR chest 1V portable HISTORY: 80 years-old Male Chest pain, nonspecific COMPARISON: 11/05/2023 TECHNIQUE: AP view of the chest FINDINGS: Cardiac silhouette is enlarged. Median sternotomy wires are present. Pulmonary vascular congestion. No pneumothorax or large pleural effusion. Mild bibasilar densities favor atelectasis. Degenerative changes of the shoulders and spine. Surgical clips project over the left upper quadrant abdomen. IMPRESSION: Cardiomegaly with pulmonary vascular congestion. ACT 112: Negative or not required by law. The above report was generated using voice recognition software. It may contain grammatical, syntax or spelling errors. Electronically signed by: Bk Esposito M.D. 08/28/2025 11:47 AM Pending Results Patient Have Any Pending Studies at Discharge: No Discharge Instructions Given to Patient (Per Discharging Provider) You presented to the hospital with chest pain while putting up drywall. Your EKG and echocardiogram were unremarkable. You were evaluated by a [employer] Diver who recommended you start a water pill called Furosemide (Lasix) on Thursday, Thursday, and Fridays only for your heart disease. Your chest pain is improved and you feel ready to go home. It is likely musculoskeletal in nature, so you can take tylenol as needed for pain. You reported rectal bleeding related to hemorrhoids. We prescribed Anusol suppositories that you can use for your hemorrhoids. Your labs showed iron deficiency anemia, and you were given IV iron. You will need to take oral iron daily. This can be constipating, so you can take a stool softener called Docusate (Colace) as needed if you develop constipation. You will need to follow up with your PCP and we recommend discussing with them about arranging for an outpatient colonoscopy. MEDICATION CHANGES: Start Furosemide (Lasix) 20mg by mouth once daily on Thursday, Thursday, and Thursday only Start Ferrous Sulfate (Iron) 325mg by mouth once daily - take Docusate (Colace), stool softener, as needed for constipation Start Anusol rectal suppositories for hemorrhoids SUMMARY OF TEST RESULTS: See above PENDING TEST RESULTS: None RECOMMENDATIONS FOR FOLLOW-UP: Please follow up with your PCP at the [facility] after being in the hospital - we recommend that you discuss with them a referral for a colonoscopy to closer evaluate your hemorrhoids and rectal bleeding OTHER INSTRUCTIONS: Seek medical attention if you have: * temperature above 101 * chest pain or trouble breathing * abdominal pain, nausea, vomiting * diarrhea, dark stools or bloody stools * any unanswered questions or concerns Call 911 if symptoms are severe. It has been a pleasure taking care of you. Please take care of yourself. If you have any questions regarding your recent hospitalization please contact [facility] and request Christie Abdulkadirist @ [phone]. Total Time Total Time Spent Total Time Spent (In Minutes): I spent a total of 35 minutes coordinating, documenting and providing care for this patient excluding time spent in the performance of separately billed services or time spent by another provider/QHP. Supervising Physician Co-Signing Physician Notes Attending addendum: The patient was seen and examined in telemetry unit He was admitted used yesterday with chest pain with the history of CAD He denies any more pain in the hospital and her EKG and serial troponins were unremarkable Remained hemodynamically stable On examination Lying in bed without any apparent distress Chest was clear to auscultate bilaterally HeartS1-S2, regular Abdomenbenign Extremitiesno edema His admission labs, EKG and imaging studies reviewed Admitted with chest pain but no evidence of ACS with history of CAD He is being evaluated by postdoctoral scientist and no further cardiac testing is needed at this time He also complained to have hemorrhoidal bleeding with hemoglobin just more than 9 and noted to have iron deficiency He was given Anusol rectal suppository and also iron supplement He will have appointment with the PCP to evaluate his anemia and further testing depending on that Agree with assessment and plan as outlined above by DARWIN Marvin and take the full responsibility of care in the hospital I spent a total of 20 minutes seeing the patient, examining him, reviewing the chart and investigation and planning of care. DR Araceli Etienne
[2025-08-29 13:05] VITALS: BP 108/69
[2025-08-29 15:41] VITALS: PULSE 83
== END 2025-08-29 16:05 | disposition home or self-care (01) | DRG 313 ==
LOC: ED 11:13 → SUATTDRO 14:54 → 4W 14:54